=== PATIENT | male | born 1940 | race Caucasian/White ===

== ENCOUNTER 2020-05-26 14:59 | Inpatient (IN) | payer MEDICARE ==
[~2020-05-26] VITALS: Ht 177.8 cm; Wt 84.0 kg
[2020-05-26 16:51] VITALS: BP 148/85
[2020-05-26] MEDS ORDERED: METHYL SALICYLATE/MENTHOL TOPICAL OINTMENT 57GM TUBE. TP PRN (17:30)
[2020-05-26] MEDS ORDERED: ACETAMINOPHEN 325 MG TABLET PO PRN (17:30)
[2020-05-26] MEDS ORDERED: MAG HYDROX/AL HYDROX/SIMETH 30 ML ORAL.SUSP PO PRN (17:30)
[2020-05-26] MEDS ORDERED: MAGNESIUM HYDROXIDE 2,400 MG/30 ML ORAL.SUSP. PO PRN (17:30)
[2020-05-26] MEDS ORDERED: ACET500T68 PO (17:43)
[2020-05-26] MEDS ORDERED: MEMA10TA PO (17:43)
[2020-05-26] MEDS ORDERED: ASPI-630 PO (17:43)
[2020-05-26] MEDS ORDERED: CALC200T3 PO (17:43)
[2020-05-26] MEDS ORDERED: BISA5TAB4 PO (17:43)
[2020-05-26] MEDS ORDERED: tiZANidine 4 MG TABLET. PO PRN (17:45)
[2020-05-26] MEDS ORDERED: LORA-254 PO (17:57)
[2020-05-26] MEDS ORDERED: SERT50TA PO (17:57)
[2020-05-26] MEDS ORDERED: TIZA4TAB2 PO (17:57)
[2020-05-26] MEDS ORDERED: QUET50TA PO (17:57)
[2020-05-26] MEDS ORDERED: ATOR40TA59 PO (17:57)
[2020-05-26] MEDS ORDERED: QUET25TA PO (17:57)
[2020-05-26] MEDS ORDERED: QUET100T4 PO (17:57)
[2020-05-26] MEDS ORDERED: BISACODYL TAB 5 MG TABLET.DR. PO PRN (18:15)
[2020-05-26] MEDS ORDERED: ACETAMINOPHEN 500 MG TABLET PO PRN (18:15)
[2020-05-26 18:58] LABS: BASO % 1 % (0-3); EOS # 0.4 x10^3/uL (0.0-0.7); EOS % 6 % (0-3); HEMATOCRIT 42.8 % (39.0-53.0); HEMOGLOBIN 13.8 g/dL (13.0-17.5); LYMPH # 2.6 x10^3/uL (1.0-4.8); LYMPH % 39 % (24-48); MEAN CORPUSCULAR HEMOGLOBIN 30 pg (25-35); MEAN CORPUSCULAR HGB CONC 32 g/dL (31-37); MEAN CORPUSCULAR VOLUME 94 fL (79-100); MONO # 0.5 x10^3/uL (0.0-1.1); MONO % 8 % (0-9); NEUT % 46 % (31-73); PLATELET COUNT 197 x10^3/uL (140-400); RED BLOOD COUNT 4.57 x10^6/uL (4.30-5.70); RED CELL DISTRIBUTION WIDTH 13.6 % (11.5-14.5); WHITE BLOOD COUNT 6.6 x10^3/uL (4.0-11.0)
[2020-05-26 19:09] LABS: ALBUMIN 3.4 g/dL (3.4-5.0); ALBUMIN/GLOBULIN RATIO 0.9 (1.0-1.7); CALCIUM 8.8 mg/dL (8.5-10.1); CREATININE 1.6 mg/dL (0.7-1.3); GFR 41.9; MAGNESIUM 2.2 mg/dL (1.8-2.4); POTASSIUM 5.2 mmol/L (3.5-5.1); TOTAL BILIRUBIN 0.2 mg/dL (0.2-1.0); TOTAL PROTEIN 7.2 g/dL (6.4-8.2)
[2020-05-26] MEDS: ATORVASTATIN CALCIUM 20 MG TABLET PO SCH (20:00)
[2020-05-26] MEDS: CALCIUM CARBONATE 500 MG TAB.CHEW PO SCH (20:00)
[2020-05-26] MEDS: LORazepam 1 MG TABLET PO SCH (20:00)
[2020-05-26] MEDS: MEMANTINE 10 MG TABLET. PO SCH (20:00)
[2020-05-26] MEDS: QUEtiapine 100 MG TABLET. PO SCH (20:00)
[2020-05-26] MEDS ORDERED: QUEtiapine 25 MG TABLET. PO SCH (21:00)
[2020-05-26] MEDS ORDERED: QUEtiapine 50 MG TABLET. PO SCH (21:00)
[2020-05-26] MEDS: traZODone 100 MG TABLET. PO PRN ×2 (21:27→23:48)
[2020-05-26 22:17] LABS: BILIRUBIN,URINE NEG (NEG); CLARITY,URINE CLEAR; COLOR,URINE YELLOW; GLUCOSE,URINE NEG (NEG); UROBILINOGEN,URINE 0.2 mg/dL (0.2 mg/dL)
[2020-05-26 22:18] LABS: BACTERIA,URINE 0 /HPF (0-FEW); NITRITE,URINE NEG (NEG); RBC,URINE 0 /HPF (0-2); WBC,URINE 0 /HPF (0-4)
[2020-05-27 06:15] VITALS: BP 154/78
[2020-05-27] MEDS: QUEtiapine 25 MG TABLET. PO SCH ×2 (07:35→14:00)
[2020-05-27] MEDS: ASPIRIN CHEWABLE 81 MG TABLET. PO SCH (07:35)
[2020-05-27] MEDS: CALCIUM CARBONATE 500 MG TAB.CHEW PO SCH ×2 (07:35→19:20)
[2020-05-27] MEDS: SERTRALINE 50 MG TABLET. PO SCH (07:35)
[2020-05-27] MEDS: MEMANTINE 10 MG TABLET. PO SCH ×2 (07:36→19:20)
[2020-05-27] MEDS: QUEtiapine 50 MG TABLET. PO SCH ×2 (07:36→14:00)
[2020-05-27 07:38] LABS: THYROID STIM HORMONE (TSH) 1.078 uIU/mL (0.358-3.740)
[2020-05-27] MEDS ORDERED: HALOPERIDOL LACT 5 MG/ML VIAL. ONE (09:20)
[2020-05-27] MEDS ORDERED: HALOPERIDOL LACT 5 MG/ML VIAL. IM ONE (09:30)
[2020-05-27] MEDS ORDERED: HALOPERIDOL LACT 5 MG/ML VIAL. IM PRN (13:00)
--- NOTE | 2020-05-27 13:26 | HP ---
ADMIT DATE: HISTORY OF PRESENT ILLNESS: The patient is a 80-year-old male patient, a resident at [facility] in [place], who was admitted to [address] [place] [address] to be screened for COVID-19 infection. He apparently had worsening agitation, wandering, grabbed peers arms on 2 separate occasions, ing, impulsive, has severe insomnia and some physical aggression. An attempt to treat him with increase in his Seroquel and Ambien for insomnia and a sitter at bedtime to decrease wandering without much improvement and therefore once his coronavirus by PCR is negative, he would be admitted to [facility] for inpatient psychiatric stabilization. The patient is extremely aggressive, combative, impulsive, and does not really give any useful information. PAST MEDICAL HISTORY: Significant for dementia with behavioral disorder, paroxysmal atrial fibrillation, hyperlipidemia, Barrera's esophagus, hiatal hernia, adenomatous colon polyps, history of melanoma, history of squamous cell carcinoma of the skin, stage 3 chronic kidney disease, depression, history of herpes simplex virus type 2 and sleep disorder. PAST SURGICAL HISTORY: Significant for cholecystectomy, skin cancer excision. FAMILY HISTORY: Both parents are because of lung cancer. SOCIAL HISTORY: He does not smoke. He drinks 1-2 drinks of alcohol per day. Previously independent living resident. 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 ALLERGIES: He has no known drug allergies. MEDICATIONS: He is currently on following medications: He is on tizanidine 4 mg every 8 hours as needed, atorvastatin calcium 40 mg at bedtime, aspirin 81 mg once a day, Tylenol 500 mg every 6 hours, sertraline 50 mg, he takes 100 mg daily, quetiapine fumarate 25 mg twice a day, quetiapine fumarate 100 mg at bedtime, quetiapine fumarate 50 mg twice a day, lorazepam 2 mg at bedtime, Namenda 10 mg twice a day, calcium carbonate 500 mg twice a day, bisacodyl 5 mg tablet p.r.n. daily. REVIEW OF SYSTEMS: Unobtainable. PHYSICAL EXAMINATION: GENERAL: On examining him, he looked well and was clearly in no apparent respiratory distress. No pallor, jaundice, cyanosis or thyromegaly. No jugular venous distention. No lower limb edema. VITAL SIGNS: His heart rate was 60, blood pressure was 148/85, temperature was 97.5, respiratory rate was 14 and oxygen saturation was 94%. HEAD, EYES, EARS, NOSE AND THROAT: Showed normocephalic, atraumatic. NECK: Supple. HEART: Normal first and second heart sounds. No gallop, rub or murmur. CHEST: Clear to auscultation. No crepitation or rhonchi. ABDOMEN: Distended, soft, nontender. NEUROLOGIC: He is sleepy, but arousable. He is very agitated, restless and combative and aggressive; however, all his cranial nerves intact. EXTREMITIES: He moves extremities without difficulty. He is apparently incontinent of urine. Unfortunately, he does not allow the nursing staff to clean him. He continues to wander around. Has been very aggressive towards nursing staff and hit some of them. He refused to allow the health physics technician to do admission EKG and grabbed her hand. He was so agitated and aggressive when being redirected, required one-on-one sitter. LABORATORY DATA: Showed a white cell count of 6600, hemoglobin 13.8, hematocrit 42, MCV 94, platelet count of 197,000. Serum sodium was 137, potassium 5.2, chloride 106, bicarbonate 24, anion gap of 7, BUN 35, creatinine 1.6, estimated GFR was 42 mL per minute. His glucose was 92, calcium was 8.8, magnesium 2.2. Serum iron 96, TIBC was 309, iron saturation was 31. Total bilirubin, AST, ALT, alkaline phosphatase were normal. Total protein 7.2, albumin was 3.4. His serum triglycerides 294 and total cholesterol 191, LDL cholesterol 89. VLDL was 58 and HDL was 44, ratio was 4. TSH was 1.078. His prothrombin time is 1.16 mg. Urinalysis showed the urine was essentially unremarkable. IMPRESSION: In summary, this is a 80-year-old male patient, who was a resident at [facility], who was admitted to [address] [place] [address] to be screened for coronavirus and once it was confirmed that it is negative, he will be transferred to [facility] for inpatient psychiatric stabilization as the patient was admitted with increased worsening behavior, markedly agitated, wandering, grabbed at peers arms on 2 separate occasions , impulsive, has severe insomnia, all this in a background of dementia. Medically, the patient has multiple medical problems including paroxysmal atrial fibrillation that seems to be rate controlled; hyperlipidemia, for which he is on atorvastatin; he is also known to have Barrera's esophagus as well as hiatal hernia; has stage 3 chronic kidney disease, depression, and sleep disorder, has adenomatous colon polyps, history of melanoma, and history of squamous cell carcinoma of the skin that were resected. PLAN: To continue with all his current medication. We added Haldol 5 mg intramuscular every 4 hours as needed. Once his coronavirus PCR becomes available and is negative, he will be transferred to senior behavioral unit. GIULIA LIMON MD DR: CHIOMA/jun JOB#: [id number] / [id number]
--- NOTE | 2020-05-27 14:35 | PN ---
DATE: 05/27/2020 SUBJECTIVE: The patient is resting flat, sleeping comfortably in bed, in no apparent distress. The patient has been extremely aggressive. He hit all the nurses today and Dr. Muñoz was consulted and he ordered Haldol 5 mg intramuscular to calm him down. PHYSICAL EXAMINATION: GENERAL: When I saw him this afternoon, he was resting flat, sleeping comfortably, in no apparent distress. There is no pallor, jaundice, cyanosis or thyromegaly. No jugular venous distention. No limb edema. VITAL SIGNS: Her heart rate was 59, blood pressure was 154/78, temperature was 97.7, respiratory rate was 16, and oxygen saturation was 93%. HEAD, EYES, EARS, NOSE AND THROAT: Normocephalic, atraumatic. NECK: Supple. HEART: Showed normal first and second heart sounds. No gallop, rub or murmur. CHEST: Clear to auscultation. No crepitation or rhonchi. ABDOMEN: Distended, soft, nontender. NEUROLOGIC: He is demented, but without any obvious lateralizing sign. The patient is able to ambulate without assistance or assistive devices. He is incontinent of urine. Unfortunately, he is very aggressive and does not allow his nursing to clean him. LABORATORY DATA: Stable. ASSESSMENT: So all in all, from medical point of view, the patient is medically stable. His blood pressure is slightly borderline elevated. His heart rate is well controlled, in fact he is not on any rate controlling medications: He is not on any anticoagulation. He has chronic kidney disease with a creatinine of 1.6, BUN of 35, and slightly elevated potassium at 5.2. PLAN: My plan is to continue with all his medication. I did order Haldol every 6 hours as needed, given how aggressive he is and how impulsive and directable. Once we have the COVID-19 test available and negative, he will be transferred up to [facility]. GIULIA LIMON MD DR: CHIOMA/jun JOB#: [id number] / [id number]
[2020-05-27 17:45] VITALS: BP 149/106
[2020-05-27] MEDS: traZODone 100 MG TABLET. PO PRN (19:20)
[2020-05-27] MEDS: ATORVASTATIN CALCIUM 20 MG TABLET PO SCH (19:20)
[2020-05-27] MEDS: QUEtiapine 100 MG TABLET. PO SCH (19:20)
[2020-05-27] MEDS: LORazepam 1 MG TABLET PO SCH (19:20)
--- NOTE | 2020-05-27 21:51 | PDOC ---
Exam Note: Danielito Note: This is a late entry for 05/26/2020. Please also refer to the separate dictated note~for this date of service dictated separately. Discussed the patient with Nursing staff reviewed the chart.~Reviewed interim history and current functioning. Reviewed vital signs,~Labs/ Radiology~and current medications noted below. Continue current treatment with the changes noted in the dictated addendum note Assessment: Vital Signs/I&O: Vital Signs Date Time Temp Pulse Resp B/P (MAP) Pulse Ox O2 Delivery O2 Flow Rate FiO2 05/27/20 17:45 98.1 59 18 149/106 (120) 93 Room Air I & O 05/26/20 05/26/20 05/27/20 15:00 23:00 07:00 Intake Total 0 ml 200 ml Output Total 200 ml Balance 0 ml 0 ml Current Medications: Meds: Current Medications Medications (Trade) Dose Ordered Sig/Abdifatah Route PRN Reason Start Time Stop Time Status Last Admin Dose Admin Acetaminophen (Tylenol) 650 mg PRN Q6HRS PRN PO MILD PAIN / TEMP > 100.3'F 05/26/20 17:30 05/26/20 18:13 DC Multi-Ingredient Ointment (Analgesic Ethel) 1 wendy PRN QID PRN TP MUSCLE PAIN 05/26/20 17:30 Al Hydroxide/Mg Hydroxide (Mylanta Plus Xs) 15 ml PRN AFTMEALHC PRN PO DYSPEPSIA 05/26/20 17:30 Magnesium Hydroxide (Milk Of Magnesia) 2,400 mg PRN QHS PRN PO CONSTIPATION 05/26/20 17:30 Calcium Carbonate/ Glycine (Tums) 500 mg BID PO 05/26/20 21:00 05/27/20 19:20 Lorazepam (Ativan) 2 mg QHS PO 05/26/20 21:00 05/27/20 19:20 Memantine (Namenda) 10 mg BID PO 05/26/20 21:00 05/27/20 19:20 Quetiapine Fumarate (SEROquel) 50 mg BID PO 05/26/20 21:00 05/26/20 19:43 DC Quetiapine Fumarate (SEROquel) 100 mg QHS PO 05/26/20 21:00 05/27/20 19:20 Sertraline HCl (Zoloft) 100 mg DAILY PO 05/27/20 09:00 05/27/20 07:35 Tizanidine HCl (Zanaflex) 4 mg PRN Q8HRS PRN PO MUSCLE SPASMS 05/26/20 17:45 Atorvastatin Calcium (Lipitor) 40 mg QHS PO 05/26/20 21:00 05/27/20 19:20 Acetaminophen (Tylenol) 500 mg PRN Q6HRS PRN PO pain or fever 05/26/20 18:15 Aspirin (Aspirin Chewable) 81 mg DAILY PO 05/27/20 09:00 05/27/20 07:35 Bisacodyl (Dulcolax Tab) 5 mg PRN DAILY PRN PO CONSTIPATION 05/26/20 18:15 Quetiapine Fumarate (SEROquel) 25 mg BID PO 05/26/20 21:00 05/26/20 19:43 DC Quetiapine Fumarate (SEROquel) 50 mg BID92 PO 05/27/20 09:00 05/27/20 07:36 Quetiapine Fumarate (SEROquel) 25 mg BID92 PO 05/27/20 09:00 05/27/20 07:35 Trazodone HCl (Desyrel) 100 mg PRN QHS PRN PO INSOMNIA, MAY REPEAT X1 05/26/20 21:15 05/27/20 19:20 Olanzapine (ZyPREXA ZYDIS) 2.5 mg PRN Q2HRS PRN PO PSYCHOSIS 05/26/20 21:15 05/27/20 07:36 Haloperidol Lactate (Haldol) 5 mg STK-MED ONCE .ROUTE 05/27/20 09:20 05/27/20 09:20 DC Haloperidol Lactate (Haldol) 5 mg 1X ONCE IM 05/27/20 09:30 05/27/20 09:31 DC 05/27/20 09:28 Lorazepam (Ativan Inj) 2 mg STK-MED ONCE .ROUTE 05/27/20 09:20 05/27/20 09:20 DC Lorazepam (Ativan Inj) 1 mg 1X ONCE IM 05/27/20 09:30 05/27/20 09:31 DC 05/27/20 09:28 Haloperidol Lactate (Haldol) 5 mg PRN Q6HRS PRN IM AGITATION 05/27/20 13:00 05/27/20 16:08 Current Medications Medications (Trade) Dose Ordered Sig/Abdifatah Route PRN Reason Start Time Stop Time Status Last Admin Dose Admin Sertraline HCl (Zoloft) 100 mg DAILY PO 05/27/20 09:00 05/27/20 07:35 Aspirin (Aspirin Chewable) 81 mg DAILY PO 05/27/20 09:00 05/27/20 07:35 Quetiapine Fumarate (SEROquel) 50 mg BID92 PO 05/27/20 09:00 05/27/20 07:36 Quetiapine Fumarate (SEROquel) 25 mg BID92 PO 05/27/20 09:00 05/27/20 07:35 Haloperidol Lactate (Haldol) 5 mg 1X ONCE IM 05/27/20 09:30 05/27/20 09:31 DC 05/27/20 09:28 Lorazepam (Ativan Inj) 1 mg 1X ONCE IM 05/27/20 09:30 05/27/20 09:31 DC 05/27/20 09:28 Haloperidol Lactate (Haldol) 5 mg PRN Q6HRS PRN IM AGITATION 05/27/20 13:00 05/27/20 16:08 I have reviewed the current psychotropics carefully including drug interactions. Risk benefit ratio favors no change other than as noted in my dictated progress note. Diagnosis: Problems: (1) Major neurocognitive disorder, due to vascular disease, with behavioral disturbance, mild (2) Dementia in Alzheimer's disease with delusions (3) Dementia in Alzheimer's disease with depression (4) Dementia of the Alzheimer's type with early onset with behavioral disturbance (5) Dementia, vascular, with delusions (6) Dementia, vascular, with depression (7) Anxiety disorder, unspecified NORMA AYALA MD May 27, 2020 21:51
--- NOTE | 2020-05-27 21:51 | PDOC ---
Exam Note: Danielito Note: This note is a late entry for 05/26/2020 covers elements not covered in my initial note. Subjective: The patient was reviewed on consult as he was admitted to [facility] Medical[facility] floor for a repeat COVID-19 screen before coming to the [facility]. He was referred to the [facility] from [facility] on account of worsening anxiety, agitation, psychotic symptoms within the context of his major neurocognitive disorder Alzheimer, vascular with delusion, depression, behavioral disturbance. Since being admitted on the unit per Snehal SWENSON, the patient has been extremely restless, anxious, agitated, trying to elope. He remains confused, psychotic, paranoid, distractive with ongoing mood lability. No suicidal or homicidal ideation. Review of Systems: No CV, , pulmonary, eye, ENT system symptoms on review. Impression: Major neurocognitive disorder, Alzheimer vascular with delusion, depression, behavioral disturbance. Rest unchanged from previous records. Plan: We will start Zyprexa 2.5 mg q.2h. p.r.n. psychosis and agitation, max 20 mg in 24 hours, trazodone 100 mg h.s. p.r.n. insomnia, may repeat x1. We may consider adding Remeron for insomnia. We will continue rest of the psychotropics. Assessment: Vital Signs/I&O: Vital Signs Date Time Temp Pulse Resp B/P (MAP) Pulse Ox O2 Delivery O2 Flow Rate FiO2 05/27/20 17:45 98.1 59 18 149/106 (120) 93 Room Air I & O 05/26/20 05/26/20 05/27/20 15:00 23:00 07:00 Intake Total 0 ml 200 ml Output Total 200 ml Balance 0 ml 0 ml Current Medications: Meds: Current Medications Medications (Trade) Dose Ordered Sig/Abdifatah Route PRN Reason Start Time Stop Time Status Last Admin Dose Admin Acetaminophen (Tylenol) 650 mg PRN Q6HRS PRN PO MILD PAIN / TEMP > 100.3'F 05/26/20 17:30 05/26/20 18:13 DC Multi-Ingredient Ointment (Analgesic Mobile) 1 wendy PRN QID PRN TP MUSCLE PAIN 05/26/20 17:30 Al Hydroxide/Mg Hydroxide (Mylanta Plus Xs) 15 ml PRN AFTMEALHC PRN PO DYSPEPSIA 05/26/20 17:30 Magnesium Hydroxide (Milk Of Magnesia) 2,400 mg PRN QHS PRN PO CONSTIPATION 05/26/20 17:30 Calcium Carbonate/ Glycine (Tums) 500 mg BID PO 05/26/20 21:00 05/27/20 19:20 Lorazepam (Ativan) 2 mg QHS PO 05/26/20 21:00 05/27/20 19:20 Memantine (Namenda) 10 mg BID PO 05/26/20 21:00 05/27/20 19:20 Quetiapine Fumarate (SEROquel) 50 mg BID PO 05/26/20 21:00 05/26/20 19:43 DC Quetiapine Fumarate (SEROquel) 100 mg QHS PO 05/26/20 21:00 05/27/20 19:20 Sertraline HCl (Zoloft) 100 mg DAILY PO 05/27/20 09:00 05/27/20 07:35 Tizanidine HCl (Zanaflex) 4 mg PRN Q8HRS PRN PO MUSCLE SPASMS 05/26/20 17:45 Atorvastatin Calcium (Lipitor) 40 mg QHS PO 05/26/20 21:00 05/27/20 19:20 Acetaminophen (Tylenol) 500 mg PRN Q6HRS PRN PO pain or fever 05/26/20 18:15 Aspirin (Aspirin Chewable) 81 mg DAILY PO 05/27/20 09:00 05/27/20 07:35 Bisacodyl (Dulcolax Tab) 5 mg PRN DAILY PRN PO CONSTIPATION 05/26/20 18:15 Quetiapine Fumarate (SEROquel) 25 mg BID PO 05/26/20 21:00 05/26/20 19:43 DC Quetiapine Fumarate (SEROquel) 50 mg BID92 PO 05/27/20 09:00 05/27/20 07:36 Quetiapine Fumarate (SEROquel) 25 mg BID92 PO 05/27/20 09:00 05/27/20 07:35 Trazodone HCl (Desyrel) 100 mg PRN QHS PRN PO INSOMNIA, MAY REPEAT X1 05/26/20 21:15 05/27/20 19:20 Olanzapine (ZyPREXA ZYDIS) 2.5 mg PRN Q2HRS PRN PO PSYCHOSIS 05/26/20 21:15 05/27/20 07:36 Haloperidol Lactate (Haldol) 5 mg STK-MED ONCE .ROUTE 05/27/20 09:20 05/27/20 09:20 DC Haloperidol Lactate (Haldol) 5 mg 1X ONCE IM 05/27/20 09:30 05/27/20 09:31 DC 05/27/20 09:28 Lorazepam (Ativan Inj) 2 mg STK-MED ONCE .ROUTE 05/27/20 09:20 05/27/20 09:20 DC Lorazepam (Ativan Inj) 1 mg 1X ONCE IM 05/27/20 09:30 05/27/20 09:31 DC 05/27/20 09:28 Haloperidol Lactate (Haldol) 5 mg PRN Q6HRS PRN IM AGITATION 05/27/20 13:00 05/27/20 16:08 Current Medications Medications (Trade) Dose Ordered Sig/Abdifatah Route PRN Reason Start Time Stop Time Status Last Admin Dose Admin Sertraline HCl (Zoloft) 100 mg DAILY PO 05/27/20 09:00 05/27/20 07:35 Aspirin (Aspirin Chewable) 81 mg DAILY PO 05/27/20 09:00 05/27/20 07:35 Quetiapine Fumarate (SEROquel) 50 mg BID92 PO 05/27/20 09:00 05/27/20 07:36 Quetiapine Fumarate (SEROquel) 25 mg BID92 PO 05/27/20 09:00 05/27/20 07:35 Haloperidol Lactate (Haldol) 5 mg 1X ONCE IM 05/27/20 09:30 05/27/20 09:31 DC 05/27/20 09:28 Lorazepam (Ativan Inj) 1 mg 1X ONCE IM 05/27/20 09:30 05/27/20 09:31 DC 05/27/20 09:28 Haloperidol Lactate (Haldol) 5 mg PRN Q6HRS PRN IM AGITATION 05/27/20 13:00 05/27/20 16:08 I have reviewed the current psychotropics carefully including drug interactions. Risk benefit ratio favors no change other than as noted in my dictated progress note. Diagnosis: Problems: (1) Anxiety disorder, unspecified (2) Dementia, vascular, with depression (3) Dementia, vascular, with delusions (4) Dementia in Alzheimer's disease with depression (5) Dementia in Alzheimer's disease with delusions (6) Dementia of the Alzheimer's type with early onset with behavioral disturbance (7) Major neurocognitive disorder, due to vascular disease, with behavioral disturbance, mild NORMA AYALA MD May 27, 2020 21:51
--- NOTE | 2020-05-27 21:57 | PDOC ---
Exam Note: Danielito Note: Please also refer to the separate dictated note~for this date of service dictated separately. Discussed the patient with Nursing staff reviewed the chart.~Reviewed interim history and current functioning. Reviewed vital signs,~Labs/ Radiology~and current medications noted below. Continue current treatment with the changes noted in the dictated addendum note Assessment: Vital Signs/I&O: Vital Signs Date Time Temp Pulse Resp B/P (MAP) Pulse Ox O2 Delivery O2 Flow Rate FiO2 05/27/20 17:45 98.1 59 18 149/106 (120) 93 Room Air I & O 05/26/20 05/26/20 05/27/20 15:00 23:00 07:00 Intake Total 0 ml 200 ml Output Total 200 ml Balance 0 ml 0 ml Current Medications: Meds: Current Medications Medications (Trade) Dose Ordered Sig/Abdifatah Route PRN Reason Start Time Stop Time Status Last Admin Dose Admin Acetaminophen (Tylenol) 650 mg PRN Q6HRS PRN PO MILD PAIN / TEMP > 100.3'F 05/26/20 17:30 05/26/20 18:13 DC Multi-Ingredient Ointment (Analgesic Pinon) 1 wendy PRN QID PRN TP MUSCLE PAIN 05/26/20 17:30 Al Hydroxide/Mg Hydroxide (Mylanta Plus Xs) 15 ml PRN AFTMEALHC PRN PO DYSPEPSIA 05/26/20 17:30 Magnesium Hydroxide (Milk Of Magnesia) 2,400 mg PRN QHS PRN PO CONSTIPATION 05/26/20 17:30 Calcium Carbonate/ Glycine (Tums) 500 mg BID PO 05/26/20 21:00 05/27/20 19:20 Lorazepam (Ativan) 2 mg QHS PO 05/26/20 21:00 05/27/20 19:20 Memantine (Namenda) 10 mg BID PO 05/26/20 21:00 05/27/20 19:20 Quetiapine Fumarate (SEROquel) 50 mg BID PO 05/26/20 21:00 05/26/20 19:43 DC Quetiapine Fumarate (SEROquel) 100 mg QHS PO 05/26/20 21:00 05/27/20 19:20 Sertraline HCl (Zoloft) 100 mg DAILY PO 05/27/20 09:00 05/27/20 07:35 Tizanidine HCl (Zanaflex) 4 mg PRN Q8HRS PRN PO MUSCLE SPASMS 05/26/20 17:45 Atorvastatin Calcium (Lipitor) 40 mg QHS PO 05/26/20 21:00 05/27/20 19:20 Acetaminophen (Tylenol) 500 mg PRN Q6HRS PRN PO pain or fever 05/26/20 18:15 Aspirin (Aspirin Chewable) 81 mg DAILY PO 05/27/20 09:00 05/27/20 07:35 Bisacodyl (Dulcolax Tab) 5 mg PRN DAILY PRN PO CONSTIPATION 05/26/20 18:15 Quetiapine Fumarate (SEROquel) 25 mg BID PO 05/26/20 21:00 05/26/20 19:43 DC Quetiapine Fumarate (SEROquel) 50 mg BID92 PO 05/27/20 09:00 05/27/20 07:36 Quetiapine Fumarate (SEROquel) 25 mg BID92 PO 05/27/20 09:00 05/27/20 07:35 Trazodone HCl (Desyrel) 100 mg PRN QHS PRN PO INSOMNIA, MAY REPEAT X1 05/26/20 21:15 05/27/20 19:20 Olanzapine (ZyPREXA ZYDIS) 2.5 mg PRN Q2HRS PRN PO PSYCHOSIS 05/26/20 21:15 05/27/20 07:36 Haloperidol Lactate (Haldol) 5 mg STK-MED ONCE .ROUTE 05/27/20 09:20 05/27/20 09:20 DC Haloperidol Lactate (Haldol) 5 mg 1X ONCE IM 05/27/20 09:30 05/27/20 09:31 DC 05/27/20 09:28 Lorazepam (Ativan Inj) 2 mg STK-MED ONCE .ROUTE 05/27/20 09:20 05/27/20 09:20 DC Lorazepam (Ativan Inj) 1 mg 1X ONCE IM 05/27/20 09:30 05/27/20 09:31 DC 05/27/20 09:28 Haloperidol Lactate (Haldol) 5 mg PRN Q6HRS PRN IM AGITATION 05/27/20 13:00 05/27/20 16:08 Current Medications Medications (Trade) Dose Ordered Sig/Abdifatah Route PRN Reason Start Time Stop Time Status Last Admin Dose Admin Sertraline HCl (Zoloft) 100 mg DAILY PO 05/27/20 09:00 05/27/20 07:35 Aspirin (Aspirin Chewable) 81 mg DAILY PO 05/27/20 09:00 05/27/20 07:35 Quetiapine Fumarate (SEROquel) 50 mg BID92 PO 05/27/20 09:00 05/27/20 07:36 Quetiapine Fumarate (SEROquel) 25 mg BID92 PO 05/27/20 09:00 05/27/20 07:35 Haloperidol Lactate (Haldol) 5 mg 1X ONCE IM 05/27/20 09:30 05/27/20 09:31 DC 05/27/20 09:28 Lorazepam (Ativan Inj) 1 mg 1X ONCE IM 05/27/20 09:30 05/27/20 09:31 DC 05/27/20 09:28 Haloperidol Lactate (Haldol) 5 mg PRN Q6HRS PRN IM AGITATION 05/27/20 13:00 05/27/20 16:08 I have reviewed the current psychotropics carefully including drug interactions. Risk benefit ratio favors no change other than as noted in my dictated progress note. Diagnosis: Problems: (1) Anxiety disorder, unspecified (2) Dementia, vascular, with depression (3) Dementia, vascular, with delusions (4) Dementia in Alzheimer's disease with depression (5) Dementia in Alzheimer's disease with delusions (6) Dementia of the Alzheimer's type with early onset with behavioral disturbance (7) Major neurocognitive disorder, due to vascular disease, with behavioral disturbance, mild NORMA AYALA MD May 27, 2020 21:57
[2020-05-27 23:00] VITALS: BP 141/82
[2020-05-28 02:03] LABS: THYROXINE 3.8 ug/dL (4.5-12.0)
[2020-05-28 04:02] LABS: HEMOGLOBIN A1C 5.4 % (4.8-5.6)
[2020-05-28 05:30] VITALS: BP 114/72
[2020-05-28] MEDS: ASPIRIN CHEWABLE 81 MG TABLET. PO SCH (08:26)
[2020-05-28] MEDS: SERTRALINE 50 MG TABLET. PO SCH (08:26)
[2020-05-28] MEDS: CALCIUM CARBONATE 500 MG TAB.CHEW PO SCH (08:27)
[2020-05-28] MEDS: MEMANTINE 10 MG TABLET. PO SCH (08:27)
[2020-05-28] MEDS: QUEtiapine 25 MG TABLET. PO SCH (08:27)
[2020-05-28] MEDS: QUEtiapine 50 MG TABLET. PO SCH (08:27)
--- NOTE | 2020-05-28 08:31 | PDOC ---
Exam Note: Danielito Note: This note is a late entry for 05/27/2020 covers elements not covered in my initial note. Subjective: The patient was discussed with nursing staff. Reviewed the chart. He has been extremely agitated, confused, aggressive, disruptive, threatening, calling to the nursing staff. He slept poorly last night even after we used the additional psychotropics after I was called by the nursing staff late last evening. He remains confused. Review of Systems: Per nursing report, no CV, , pulmonary, eye system symptoms on review. Mental Status Exam: Assessed via description from nursing staff. He remains oriented to himself. Insight and judgment, recent and remote memory, attention and concentration, fund of knowledge is poor consistent with his diagnosis. Impression: Major neurocognitive disorder, Alzheimer vascular with delusion, depression, behavioral disturbance. Plan: The patient has been non-compliant with his medications, responding poorly to interventions and we will give one time dosage of Haldol 5 mg, Ativan 1 mg. Increase the Zyprexa p.r.n. Make further adjustments as clinically indicated. In the interim continue rest of the psychotropics. Assessment: Vital Signs/I&O: Vital Signs Date Time Temp Pulse Resp B/P (MAP) Pulse Ox O2 Delivery O2 Flow Rate FiO2 05/28/20 08:08 Room Air 05/28/20 05:30 98.6 71 18 114/72 (86) 98 I & O 05/27/20 05/27/20 05/28/20 15:00 23:00 07:00 Intake Total 240 ml 100 ml 0 ml Output Total 2275 ml 300 ml Balance 240 ml -2175 ml -300 ml Current Medications: Meds: Current Medications Medications (Trade) Dose Ordered Sig/Abdifatah Route PRN Reason Start Time Stop Time Status Last Admin Dose Admin Sertraline HCl (Zoloft) 100 mg DAILY PO 05/27/20 09:00 05/28/20 08:26 Aspirin (Aspirin Chewable) 81 mg DAILY PO 05/27/20 09:00 05/28/20 08:26 Quetiapine Fumarate (SEROquel) 50 mg BID92 PO 05/27/20 09:00 05/28/20 08:27 Quetiapine Fumarate (SEROquel) 25 mg BID92 PO 05/27/20 09:00 05/28/20 08:27 Haloperidol Lactate (Haldol) 5 mg 1X ONCE IM 05/27/20 09:30 05/27/20 09:31 DC 05/27/20 09:28 Lorazepam (Ativan Inj) 1 mg 1X ONCE IM 05/27/20 09:30 05/27/20 09:31 DC 05/27/20 09:28 Haloperidol Lactate (Haldol) 5 mg PRN Q6HRS PRN IM AGITATION 05/27/20 13:00 05/27/20 16:08 I have reviewed the current psychotropics carefully including drug interactions. Risk benefit ratio favors no change other than as noted in my dictated progress note. Diagnosis: Problems: (1) Anxiety disorder, unspecified (2) Dementia, vascular, with depression (3) Dementia, vascular, with delusions (4) Dementia in Alzheimer's disease with depression (5) Dementia in Alzheimer's disease with delusions (6) Dementia of the Alzheimer's type with early onset with behavioral d isturbance (7) Major neurocognitive disorder, due to vascular disease, with behavioral disturbance, mild NORMA AYALA MD May 28, 2020 08:31
[2020-05-28] MEDS ORDERED: TRAZ-125 PO (12:26)
[2020-05-28] MEDS ORDERED: METH28OI2 TP (12:26)
[2020-05-28] MEDS ORDERED: MAG-115 PO (12:26)
[2020-05-28] MEDS ORDERED: OLAN5TAB99 PO (12:26)
[2020-05-28] MEDS ORDERED: MAGN24003 PO (12:26)
--- NOTE | 2020-05-28 14:31 | DS ---
DATE OF DISCHARGE: 05/28/2020 HOSPITAL COURSE: The patient is a 80-year-old male patient, a resident at [facility] in [place], was admitted to [address] [place] [address] to be screened for COVID-19 infection. Actually, his coronavirus by PCR was negative, undetectable, and therefore, the patient was transferred to [facility] where he was admitted on account of worsening agitation, wandering, grabbed peers arm on 2 separate occasions, , impulsive, has severe insomnia and some physical aggression and an attempt to treat him as an outpatient by increasing his Seroquel and Ambien for insomnia and a sitter at bedtime to decrease wandering without much improvement and therefore, he was transferred to [facility] for inpatient psychiatric stabilization. PHYSICAL EXAMINATION: GENERAL: When I saw him today, he looked well and was clearly in no apparent respiratory distress. There was no pallor, jaundice or cyanosis. No lymphadenopathy, no thyromegaly. No jugular venous distension. No limb edema. VITAL SIGNS: His heart rate was 71, blood pressure was 114/72, temperature was 98.6, respiratory rate was 18 and oxygen saturation was 98%. HEAD, EYES, EARS, NOSE AND THROAT: Showed normocephalic, atraumatic. NECK: Supple. HEART: Showed normal first and second heart sounds. No gallop, rub or murmur. CHEST: Clear to auscultation. No crepitation or rhonchi. ABDOMEN: Distended, soft, nontender. NEUROLOGIC: He is demented, but without any obvious lateralizing sign. LABORATORY DATA: Showed his hemoglobin A1c was 5.4%. His serum iron, TIBC and iron saturation are all normal. His vitamin B12 was 326 pg/mL, which is well within normal range; however, his 25-hydroxy vitamin D was 22.9, which is low. His TSH was normal at 1.078, however, his total T4 and total T3 are both low. DISCHARGE MEDICATIONS: The patient was discharged to [facility] to continue on: Tylenol 500 mg every 6 hours, aspirin 81 mg once a day, bisacodyl 5 mg once a day, calcium carbonate or Tums 500 mg twice a day, lorazepam 2 mg at bedtime, Namenda 10 mg twice a day, quetiapine fumarate 100 mg at bedtime, sertraline 100 mg once a day, tizanidine 4 mg every 8 hours as needed, atorvastatin calcium 40 mg daily, quetiapine fumarate 75 mg twice a day. FINAL DISCHARGE DIAGNOSES: 1. Dementia with behavioral disorders. 2. Paroxysmal atrial fibrillation. 3. Hyperlipidemia. 4. Barrera's esophagus. 5. Hiatal hernia. 6. Adenomatous colon polyps. 7. Chronic kidney disease. 8. Sleep disorder. GIULIA LIMON MD DR: CHIOMA/jun JOB#: [id number] / [id number]
== END 2020-05-28 10:35 | DRG 641 ==
LOC: 1 SOUTH 16:48
PROVIDERS: ADMIT Internal Medicine; ATTEND Internal Medicine
DX: E87.5 Hyperkalemia (principal); F01.51 Vascular dementia, unspecified severity, with behavioral disturbance; F02.81 Dementia in other diseases classified elsewhere, unspecified severity, with behavioral disturbance; G30.9 Alzheimer's disease, unspecified; D12.6 Benign neoplasm of colon, unspecified; E78.5 Hyperlipidemia, unspecified; F32.9 Major depressive disorder, single episode, unspecified; F41.9 Anxiety disorder, unspecified; G47.00 Insomnia, unspecified; I48.0 Paroxysmal atrial fibrillation; K44.9 Diaphragmatic hernia without obstruction or gangrene; K22.70 Barrett's esophagus without dysplasia; N18.30 Chronic kidney disease, stage 3 unspecified; Z20.822 Contact with and (suspected) exposure to COVID-19; Z80.1 Family history of malignant neoplasm of trachea, bronchus and lung; Z85.820 Personal history of malignant melanoma of skin; Z86.010 Personal history of colon polyps
CPT/HCPCS: 36415; 80053; 80061; 81001; 82306; 82607; 83036; 83540; 83550; 83735; 84436; 84443; 84480; 85025; 85379; 86592; J1630; J2060; U0003

== ENCOUNTER 2020-05-28 10:40 | Inpatient (IN) | payer MEDICARE ==
[~2020-05-28] VITALS: Ht 177.8 cm; Wt 84.1 kg
--- NOTE | 2020-05-28 10:30 | NUR ---
Admission Note with Justification for Admission to [facility] Patient admitted to [facility] for protective oversight for emergency stabilization of acute psychiatric crisis. Pt admitted from: 1 [facility] Mode of arrival: WC Accompanied By: 1 [facility] Staff Precipitating behaviors that initiated intake and admission:increased behaviors, agitatied, wandering gabbed peers arm on 2 separate occasions, sundowning, impulsive, insomnia, some physical aggression. Description of failure of out patient attempts at stabilization in previous setting list behavior and medication trials: increased seroquel, attempted ambien for insomnia, sitter @ HS to decrease wandering. Behaviors and assessment findings upon admission: pt is sleepy but arousable. He is resistive to cares. Plan: Admit for protective oversight for adjustment and stabilization of medications, behaviors and mood. Intense treatment regimen including groups, medication adjustments, therapy, consistent regimen for ADL's, self care, and sleep hygiene. Daily monitoring by Inpatient staff, Psychiatry, and Medical Physician.
[~2020-05-28 10:40] MED LIST: ACET500T68 PO; ASPI-630 PO; ATOR40TA59 PO; BISA5TAB4 PO; CALC200T3 PO; LORA-254 PO; MEMA10TA PO; QUET100T4 PO; QUET25TA PO; QUET50TA PO; SERT50TA PO; TIZA4TAB2 PO
[2020-05-28 11:26] VITALS: BP 115/74
[2020-05-28] MEDS ORDERED: MAG HYDROX/AL HYDROX/SIMETH 30 ML ORAL.SUSP PO PRN ×2 (12:00→12:30)
[2020-05-28] MEDS ORDERED: BISACODYL TAB 5 MG TABLET.DR. PO PRN (12:00)
[2020-05-28] MEDS ORDERED: MAGN24003 PO (12:26)
[2020-05-28] MEDS ORDERED: MAG-115 PO (12:26)
[2020-05-28] MEDS ORDERED: METH28OI2 TP (12:26)
[2020-05-28] MEDS ORDERED: TRAZ-125 PO (12:26)
[2020-05-28] MEDS ORDERED: OLAN5TAB99 PO (12:26)
[2020-05-28] MEDS ORDERED: METHYL SALICYLATE/MENTHOL TOPICAL OINTMENT 57GM TUBE. TP PRN (12:45)
[2020-05-28] MEDS ORDERED: MAGNESIUM HYDROXIDE 2,400 MG/30 ML ORAL.SUSP. PO PRN (12:45)
[2020-05-28] MEDS: QUEtiapine 25 MG TABLET. PO SCH (14:00)
[2020-05-28] MEDS: QUEtiapine 50 MG TABLET. PO SCH (14:00)
[2020-05-28 16:26] VITALS: BP 121/79
[2020-05-28] MEDS: traZODone 100 MG TABLET. PO PRN (20:37)
[2020-05-28] MEDS: QUEtiapine 100 MG TABLET. PO SCH (20:37)
[2020-05-28] MEDS: ATORVASTATIN CALCIUM 20 MG TABLET PO SCH (20:51)
[2020-05-28] MEDS: CALCIUM CARBONATE 500 MG TAB.CHEW PO SCH (20:52)
[2020-05-28] MEDS ORDERED: MEMANTINE 10 MG TABLET. PO SCH (21:00)
[2020-05-28] MEDS ORDERED: LORazepam 1 MG TABLET PO SCH (21:00)
--- NOTE | 2020-05-28 21:05 | PDOC ---
Exam Note: Danielito Note: Please also refer to the separate dictated note~for this date of service dictated separately.~Patient seen individually. Discussed the patient with Nursing staff reviewed the chart.~Reviewed interim history and current functioning. Reviewed vital signs,~Labs/ Radiology~and current medications noted below. Continue current treatment with the changes noted in the dictated addendum note Assessment: Vital Signs/I&O: Vital Signs Date Time Temp Pulse Resp B/P (MAP) Pulse Ox O2 Delivery O2 Flow Rate FiO2 05/28/20 16:26 98.8 62 20 121/79 (93) 99 Current Medications: Meds: Current Medications Medications (Trade) Dose Ordered Sig/Abdifatah Route PRN Reason Start Time Stop Time Status Last Admin Dose Admin Acetaminophen (Tylenol) 500 mg PRN Q6HRS PRN PO pain or fever 05/28/20 12:00 Aspirin (Aspirin Chewable) 81 mg DAILY PO 05/29/20 09:00 Bisacodyl (Dulcolax Tab) 5 mg PRN DAILY PRN PO CONSTIPATION 05/28/20 12:00 Calcium Carbonate/ Glycine (Tums) 500 mg BID PO 05/28/20 21:00 Lorazepam (Ativan) 2 mg QHS PO 05/28/20 21:00 05/28/20 20:37 Al Hydroxide/Mg Hydroxide (Mylanta Plus Xs) 15 ml PRN AFTMEALHC PRN PO DYSPEPSIA 05/28/20 12:00 UNV Memantine (Namenda) 10 mg BID PO 05/28/20 21:00 Olanzapine (ZyPREXA ZYDIS) 2.5 mg PRN Q2HRS PRN PO PSYCHOSIS 05/28/20 12:00 Quetiapine Fumarate (SEROquel) 25 mg BID92 PO 05/28/20 14:00 Quetiapine Fumarate (SEROquel) 50 mg BID92 PO 05/28/20 14:00 Quetiapine Fumarate (SEROquel) 100 mg QHS PO 05/28/20 21:00 05/28/20 20:37 Sertraline HCl (Zoloft) 100 mg DAILY PO 05/29/20 09:00 Tizanidine HCl (Zanaflex) 4 mg PRN Q8HRS PRN PO MUSCLE SPASMS 05/28/20 12:00 Trazodone HCl (Desyrel) 100 mg PRN QHS PRN PO INSOMNIA, MAY REPEAT X1 05/28/20 12:00 05/28/20 20:37 Atorvastatin Calcium (Lipitor) 40 mg QHS PO 05/28/20 21:00 Magnesium Hydroxide (Milk Of Magnesia) 2,400 mg PRN QHS PRN PO CONSTIPATION 05/28/20 12:45 Multi-Ingredient Ointment (Analgesic Woden) 1 wendy PRN QID PRN TP MUSCLE PAIN 05/28/20 12:45 Al Hydroxide/Mg Hydroxide (Mylanta Plus Xs) 15 ml PRN AFTMEALHC PRN PO DYSPEPSIA 05/28/20 12:30 Current Medications Medications (Trade) Dose Ordered Sig/Abdifatah Route PRN Reason Start Time Stop Time Status Last Admin Dose Admin Lorazepam (Ativan) 2 mg QHS PO 05/28/20 21:00 05/28/20 20:37 Quetiapine Fumarate (SEROquel) 100 mg QHS PO 05/28/20 21:00 05/28/20 20:37 Trazodone HCl (Desyrel) 100 mg PRN QHS PRN PO INSOMNIA, MAY REPEAT X1 05/28/20 12:00 05/28/20 20:37 I have reviewed the current psychotropics carefully including drug interactions. Risk benefit ratio favors no change other than as noted in my dictated progress note. Diagnosis: Problems: (1) Anxiety disorder, unspecified (2) Dementia, vascular, with depression (3) Dementia, vascular, with delusions (4) Dementia in Alzheimer's disease with depression (5) Dementia in Alzheimer's disease with delusions (6) Dementia of the Alzheimer's type with early onset with behavioral distu rbance (7) Major neurocognitive disorder, due to vascular disease, with behavioral disturbance, mild NORMA AYALA MD May 28, 2020 21:05
--- NOTE | 2020-05-28 23:13 | NUR ---
Pt sleeping soundly, but arouseable tonight. Later in the evening, pt woke up and was restless repeatedly attempting to get out of bed. Pt extremely unsteady on his feet and has a carrillo catheter. Pt agitated with redirection, balling up his fists. Psychiatric medications crushed and placed in one bite of pudding. Pt compliant with medications. Pt taken to [facility] and placed in a broda chair with chair alarm. Pt continuously hallucinated, moving his hands in a repetitive motion as if he was knitting. Pt unable to answer assessment questions. Pt later taken back to bed where he is currently sleeping.
[2020-05-29 06:42] VITALS: BP 108/63
--- NOTE | 2020-05-29 09:37 | HP ---
ADMIT DATE: 05/28/2020 PSYCHIATRIC ADMISSION HISTORY/EVALUATION This is a late entry date of service 05/28/2020 covers the elements not covered in my initial note 05/28/2020. SUBJECTIVE: I met with the patient [id number] evening of 05/28/2020 for this evaluation, previously discussed with nursing staff on several occasions and with Rosie Diop, primary care coordinator and reviewed current and past records. IDENTIFYING DATA: The patient is a 80-year-old male referred to us from [facility] by his primary care physician/psychiatrist with a diagnosis of major neurocognitive disorder, Alzheimer, vascular with delusion, depression, behavioral disturbance. The patient had increased agitation at the retirement with significant behavior problems. He was wandering. He grabbed a peer on the arm on 2 separate occasions. Confusion, agitation, delusions, aggression seemed to worsen with sundowning. He was impulsive. He is having marked insomnia. Adjustments had been made in his psychotropics including an increase in Seroquel and Ambien was tried for insomnia and he had a sitter in place at night to improve wandering. All of this had failed. Behaviors were deemed dangerous, unmanageable at the facility resulting in this referral. He was initially admitted to [address] [place] [address] until we got a negative COVID-19 screen and then he has been transferred to the [facility] for further psychiatric treatment. He is quite sedated at the time of my evaluation, having received PRNs on [address] [place] [address] Medical/Surgical floor. CHIEF COMPLAINT: "No." HISTORY OF PRESENT ILLNESS: The patient has a history of major neurocognitive disorder, Alzheimer, vascular with delusion, depression, behavioral disturbance. He has been increasingly agitated as noted above, aggressive, disruptive with marked insomnia, dangerous, unmanageable behaviors. No clear history of bipolar disorder, suicidal or homicidal ideation. He has been physically aggressive as well. PAST PSYCHIATRIC HISTORY: As above. MEDICAL HISTORY: Positive for stage 3, renal insufficiency, atrial fibrillation, hypotension, Barrera's esophagus, hyperlipidemia, chronic pain. DRUG ALLERGIES: Negative. CODE STATUS: DNR. DIET: Regular, thin liquids. Takes meds crushed. Ambulates 2% assist in Broda chair. CURRENT PSYCHOTROPICS: Depakote Sprinkles 125 mg 3 times a day, Seroquel 75 mg 9 a.m., 2:00 p.m. 100 mg at bedtime, Zoloft 100 mg a day, trazodone 100 mg at bedtime p.r.n., may repeat x1, Ativan 2 mg at bedtime, which we will go ahead and start tapering since it seems to be causing paradoxical disinhibition. He is also on Zyprexa p.r.n., which was [facility] on [facility] after the nursing staff had called me several times due to his unmanageable behaviors. FAMILY HISTORY: Noncontributory. SOCIAL HISTORY: No history of alcohol, drug abuse, physical, sexual or elder abuse. He is not known to be a perpetrator. REACTION TO HOSPITALIZATION: The patient oblivious of where he is. ASSETS: Supportive living at the above facility, supportive family. MENTAL STATUS EXAMINATION: The patient was seen individually evening of 05/28/2020. He is oriented to himself, somewhat sedated. Not very verbally interactive. Insight, judgment, recent and remote memory, attention, concentration, fund of knowledge poor, consistent with his diagnosis. After I evaluated the patient around 7:30 p.m., I was then called around 10:00 p.m. and informed that the patient had woken up increasingly agitated, very confused, psychotic. IMPRESSION: Major neurocognitive disorder, Alzheimer, vascular with delusion, depression, behavioral disturbance; anxiety disorder, unspecified; impulse control disorder, unspecified. Rest unchanged as above. PLAN: Admit to Geropsychiatry Unit at [facility]. I will see the patient daily individually from a psychiatric standpoint. Medical followup with Dr. Salcedo/Dr. Knight. Continue the patient on his current psychotropics. Check a valproic acid level. Adjust Depakote to reach therapeutic level. We will go ahead and gradually taper the Ativan by 0.5 mg reduction every 3 days until it is discontinued. May need to increase Seroquel. We will consider other options as clinically indicated. ESTIMATED LENGTH OF STAY: 10-12 days. DISPOSITION: Plans back to retirement when stable. MAN Kadie AYALA MD DR: BRAVO/jun JOB#: [id number] / [id number]
[2020-05-29 10:13] LABS: ALBUMIN 3.2 g/dL (3.4-5.0); ALBUMIN/GLOBULIN RATIO 0.8 (1.0-1.7); CALCIUM 8.5 mg/dL (8.5-10.1); CREATININE 1.7 mg/dL (0.7-1.3); GFR 39.1; POTASSIUM 3.7 mmol/L (3.5-5.1); TOTAL BILIRUBIN 0.6 mg/dL (0.2-1.0); TOTAL PROTEIN 7.1 g/dL (6.4-8.2)
[2020-05-29 10:23] LABS: BASO % 0 % (0-3); EOS % 0 % (0-3); HEMATOCRIT 45.4 % (39.0-53.0); HEMOGLOBIN 14.8 g/dL (13.0-17.5); LYMPH # 1.4 x10^3/uL (1.0-4.8); LYMPH % 16 % (24-48); MEAN CORPUSCULAR HEMOGLOBIN 30 pg (25-35); MEAN CORPUSCULAR HGB CONC 33 g/dL (31-37); MEAN CORPUSCULAR VOLUME 92 fL (79-100); MONO # 0.7 x10^3/uL (0.0-1.1); MONO % 8 % (0-9); NEUT # 6.6 x10^3uL (1.8-7.7); NEUT % 76 % (31-73); PLATELET COUNT 208 x10^3/uL (140-400); RED BLOOD COUNT 4.91 x10^6/uL (4.30-5.70); RED CELL DISTRIBUTION WIDTH 13.5 % (11.5-14.5); WHITE BLOOD COUNT 8.7 x10^3/uL (4.0-11.0)
[2020-05-29] MEDS: DIVALPROEX 125 MG CAP.SPRINK PO SCH ×4 (10:43→17:00)
[2020-05-29] MEDS: QUEtiapine 50 MG TABLET. PO SCH ×3 (10:44→13:26)
[2020-05-29] MEDS: QUEtiapine 25 MG TABLET. PO SCH ×3 (10:44→13:26)
[2020-05-29] MEDS: CALCIUM CARBONATE 500 MG TAB.CHEW PO SCH ×3 (10:44→21:00)
[2020-05-29] MEDS: SERTRALINE 100 MG TABLET. PO SCH ×2 (10:44→10:45)
[2020-05-29] MEDS: ASPIRIN CHEWABLE 81 MG TABLET. PO SCH (10:45)
--- NOTE | 2020-05-29 10:45 | NUR ---
Patient has been drowsy in Broda this morning. Attempted to provide morning medications per eMAR, patient too drowsy to accept. Patient transferred to his bed with two person assist. Will hold morning meds and report to MD during rounds.
--- NOTE | 2020-05-29 12:36 | NUR ---
PSYCHOSOCIAL ASSESSMENT ADMISSION DATE: 05/28/20 CONTACT INFORMATION: DPOA/Guardian Contact Name: Janee Rodarte Contact Address: [place], [place] Contact Phone #: [phone] ETHNIC ORIGIN: REASONS FOR ADMISSION: Aggressive Agitated Angry Combative Confusion/Disoriented Sig. Change Sleep ADDITIONAL ADMISSION COMMENTS: Per intake record, pt has increased behaviors of agitation, wandering, grabbed a peers arm on two separate occasions, sundowning, impulsive, insomnia, some physical aggression. REASON FOR ADMISSION IN PATIENT/FAMILY'S OWN WORDS: Pt has had to have a 1:1 for lack of sleep. He is active at night and doesn't sleep. The most sleep recently that he has gotten has been about four hours. Ambien has been tried and maybe some Lorazepam. He, also, has been getting into other patient rooms. Finally, he has been agitated. PATIENT/FAMILY EXPECTATIONS FOR ADMISSION: Decrease agitation/aggression Medication management Help patient to get some sleep. LIVING SITUATION: Patient lives with: Memory Care Other living arrangements: [facility] Living Contact Name: Ro Contact Address: [address] [place] [address] Contact Phone #: [phone] Contact Fax #: [phone] FAMILY RELATIONS: Marital Status: # of Marriages: 1 # of Children: 1 [facility] Family Support: Concerned Cooperative Involved in [place] Planning Additional Comments r/t Family: Pt and ex- have one daughter who is Janee Rodarte/GONSALO. Ex- has no involvement. There are no grandchildren. Pt has no living siblings. SIGNIFICANT PSYCHIATRIC/MEDICAL HISTORY: Psychiatric/Treatment History: None Pertinent Family History: Mother had Alzheimer's. Brother from lung cancer. HISTORICAL DATA: Childhood Environment: [place] Nurturing Stressful Supportive Childhood Environment Additional Comments: Pt grew up in [place], [place] and was raised by a single mother. Father had abandoned him and his mother when pt was 3 y.o. For pt's mother to be able to work and support family, pt would have to be left a an orphanage at times. 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 service: N Scientology background: [place] Sexual orientation: Heterosexual Educational Level: Medical School Past/Present Interests/Hobbies: Playing golf, watching golf on television, watching sports on television, would love to watch the [place] bowl, plays various card games such as Bridge and Gin Rummy. Financial support/resources: Chcf/Pension Monthly income: Unknown/Adequate Person handling finances: Dtr/GONSALO, Janee Rodarte Do you have a history of legal problems: N Cultural considerations: None SOCIAL RELATIONSHIPS-CURRENT/PAST: Psychiatrist: None PCP: Dr. 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 Hallucination/Delus Medication Stabilization Monitor Med Effects Control abnormal behavior Prevent Deterioration Dec. Outbursts Dec. Aggression Other preliminary treatment comments: While at [facility], pt will be encouraged to attend SW and recreational therapy groups. He will report problems with sleep as well as be monitored by staff for sleep. Pt will, also, be monitored for medication effects. DISCHARGE PLANNING: Discharge planning/disposition: Memory Care Additional discharge needs identified: Pt will return to [facility] once stable. ADDITIONAL INFORMATION: Other Pertinent Data: Pt derekr/GONSALO would like to be involved in treatment team meetings.
--- NOTE | 2020-05-29 13:23 | NUR ---
Patient continues to sleep and be very lethargic, will hold all medications at this time.
[2020-05-29 15:27] VITALS: BP 164/85
[2020-05-29] MEDS ORDERED: CHOLECALCIFEROL (VITAMIN D3) 50,000 UNIT CAPSULE PO SCH (16:00)
--- NOTE | 2020-05-29 18:32 | CONS ---
DATE OF CONSULTATION: 05/29/2020 REASON FOR CONSULTATION: Medical management. HISTORY OF PRESENT ILLNESS: The patient is a 80-year-old male patient who was referred from [facility] by his primary care physician and psychiatrist with diagnosis of major neurocognitive disorder, Alzheimer, vascular with delusion and depression. He had increased agitation at the custodial with significant behavioral problems. He was admitted to [address] [place] [address] and was screened for COVID-19 that turned out to be negative and therefore he was transferred to [facility] for inpatient psychiatric stabilization. He apparently had increased agitation at the custodial with significant behavioral problems. He was wandering, grabbed a peer on the arm on 2 separate occasions, confusion, agitation, delusion, increasing aggression seem to worsen with owning, very impulsive, has marked insomnia and despite adjustment that has been made to his psychotropic medication including increasing Seroquel and Ambien without much improvement. PAST MEDICAL HISTORY: Medically, the patient is known that he has chronic stage 3 kidney disease, atrial fibrillation, hypertension, Barrera's esophagus, hyperlipidemia and chronic pain syndrome. PAST SURGICAL HISTORY: Significant for cholecystectomy and skin cancer excision. FAMILY HISTORY: Both parents are because of lung cancer. SOCIAL HISTORY: He does not smoke. Drinks 1-2 drinks of alcohol per day. Previously independent living resident. 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 ALLERGIES: He has no known drug allergies. MEDICATIONS: He is currently on tizanidine 4 mg every 8 hours as needed, atorvastatin calcium 40 mg at bedtime, aspirin 81 mg once a day, Tylenol 500 mg every 6 hours, sertraline 50 mg, he takes 100 mg daily, quetiapine fumarate 25 mg twice a day, quetiapine fumarate 100 mg at bedtime, quetiapine fumarate 50 mg twice a day, lorazepam 2 mg at bedtime, Namenda 10 mg twice a day, calcium carbonate 500 mg twice a day, bisacodyl 5 mg tablet p.o. daily p.r.n. for constipation. REVIEW OF SYSTEMS: Unobtainable. PHYSICAL EXAMINATION: GENERAL: On examining him, the patient looked well and was clearly in no apparent respiratory distress. No pallor, jaundice, cyanosis or thyromegaly. No jugular venous distention or limb edema. VITAL SIGNS: Her heart rate was 68, blood pressure 115/74, temperature 97.8, respiratory rate was 20, and oxygen saturation was 99%. HEAD, EYES, EARS, NOSE AND THROAT: Normocephalic, atraumatic. NECK: Supple. HEART: Showed normal first and second heart sounds. No gallop or murmur. CHEST: Clear to auscultation. No crepitation or rhonchi. ABDOMEN: Distended, soft, nontender. No guarding or rigidity. No organomegaly. All hernial orifice intact. Bowel sounds normal. NEUROLOGIC: He was demented, but without any obvious lateralizing sign. LABORATORY DATA: Showed a white cell count of 8700, hemoglobin 14.8, hematocrit 45, MCV 92, and platelet count 208,000 with normal manual differential. His chemistry showed a serum sodium 140, potassium 3.7, chloride 104, bicarbonate 24, anion gap of 12, BUN 31, creatinine 1.7, estimated GFR was 39 mL per minute. His glucose 150, calcium was 8.5. Total bilirubin, AST, ALT, alkaline phosphatase were normal. Total protein is 7.1, albumin 3.2. His TSH was 1.78, but total T4 and total T3 were low. His 25-hydroxyvitamin D was low at 22.9; however, his vitamin B12 was normal. His hemoglobin A1c was 5.4%. His serum iron, TIBC and iron saturation are all normal. Serum triglycerides slightly elevated to 194, however, total cholesterol was 191, LDL cholesterol was 89, VLDL was 58, HDL was 44 and ratio was 40. His coronavirus PCR was undetectable and his treponema pallidum antibodies unreactive. IMPRESSION: In summary, this is a 80-year-old male patient who was admitted with increased agitation at the custodial with significant behavioral problems. He was wandering, grabbed a peer on the arm on 2 separate occasions. He is confused, agitated, delusional, aggressive, all the symptoms worsen with sundowning. He was impulsive and has marked insomnia and despite adjustment of his psychotropic medication, he continued to be very agitated and therefore, he was admitted to [facility] for inpatient psychiatric stabilization. Medically, the patient seems has obviously multiple medical problems including chronic renal insufficiency, atrial fibrillation, seems to be rate controlled, hypertension, Barrera's esophagus, and hyperlipidemia. His lab work which showed he has vitamin D deficiency. His total T4 and total T3 were low. PLAN: My plan is to start him on cholecalciferol 50,000 International unit once a week and also start him on a small dose of Synthroid 25 mcg. Thank you, Dr. Muñoz for allowing me to participate in the care of this patient. GIULIA LIMON MD DR: CHIOMA/jun JOB#: [id number] / [id number]
[2020-05-29] MEDS: QUEtiapine 100 MG TABLET. PO SCH (21:00)
[2020-05-29] MEDS: ATORVASTATIN CALCIUM 20 MG TABLET PO SCH (21:00)
[2020-05-29] MEDS: LORazepam 1 MG TABLET PO SCH (21:00)
--- NOTE | 2020-05-29 21:01 | PDOC ---
Exam Note: Danielito Note: Please also refer to the separate dictated note~for this date of service dictated separately.~Patient seen individually. Discussed the patient with Nursing staff reviewed the chart.~Reviewed interim history and current functioning. Reviewed vital signs,~Labs/ Radiology~and current medications noted below. Continue current treatment with the changes noted in the dictated addendum note Assessment: Vital Signs/I&O: Vital Signs Date Time Temp Pulse Resp B/P (MAP) Pulse Ox O2 Delivery O2 Flow Rate FiO2 05/29/20 15:27 98.9 82 16 164/85 (111) 92 05/29/20 06:42 Room Air I & O 05/28/20 05/28/20 05/29/20 15:00 23:00 07:00 Intake Total 0 ml Output Total 850 ml Balance 0 ml -850 ml Labs: Laboratory Tests Test 05/29/20 09:38 White Blood Count 8.7 x10^3/uL (4.0-11.0) Red Blood Count 4.91 x10^6/uL (4.30-5.70) Hemoglobin 14.8 g/dL (13.0-17.5) Hematocrit 45.4 % (39.0-53.0) Mean Corpuscular Volume 92 fL (79-100) Mean Corpuscular Hemoglobin 30 pg (25-35) Mean Corpuscular Hemoglobin Concent 33 g/dL (31-37) Red Cell Distribution Width 13.5 % (11.5-14.5) Platelet Count 208 x10^3/uL (140-400) Neutrophils (%) (Auto) 76 % (31-73) H Lymphocytes (%) (Auto) 16 % (24-48) L Monocytes (%) (Auto) 8 % (0-9) Eosinophils (%) (Auto) 0 % (0-3) Basophils (%) (Auto) 0 % (0-3) Neutrophils # (Auto) 6.6 x10^3uL (1.8-7.7) Lymphocytes # (Auto) 1.4 x10^3/uL (1.0-4.8) Monocytes # (Auto) 0.7 x10^3/uL (0.0-1.1) Eosinophils # (Auto) 0.0 x10^3/uL (0.0-0.7) Basophils # (Auto) 0.0 x10^3/uL (0.0-0.2) Sodium Level 140 mmol/L (136-145) Potassium Level 3.7 mmol/L (3.5-5.1) Chloride Level 104 mmol/L (98-107) Carbon Dioxide Level 24 mmol/L (21-32) Anion Gap 12 (6-14) Blood Urea Nitrogen 31 mg/dL (8-26) H Creatinine 1.7 mg/dL (0.7-1.3) H Estimated GFR (Cockcroft-Gault) 39.1 BUN/Creatinine Ratio 18 (6-20) Glucose Level 150 mg/dL (70-99) H Calcium Level 8.5 mg/dL (8.5-10.1) Total Bilirubin 0.6 mg/dL (0.2-1.0) Aspartate Amino Transferase (AST) 27 U/L (15-37) Alanine Aminotransferase (ALT) 23 U/L (16-63) Alkaline Phosphatase 83 U/L (46-116) Total Protein 7.1 g/dL (6.4-8.2) Albumin 3.2 g/dL (3.4-5.0) L Albumin/Globulin Ratio 0.8 (1.0-1.7) L Current Medications: Meds: Laboratory Tests Test 05/29/20 09:38 White Blood Count 8.7 x10^3/uL Red Blood Count 4.91 x10^6/uL Hemoglobin 14.8 g/dL Hematocrit 45.4 % Mean Corpuscular Volume 92 fL Mean Corpuscular Hemoglobin 30 pg Mean Corpuscular Hemoglobin Concent 33 g/dL Red Cell Distribution Width 13.5 % Platelet Count 208 x10^3/uL Neutrophils (%) (Auto) 76 % Lymphocytes (%) (Auto) 16 % Monocytes (%) (Auto) 8 % Eosinophils (%) (Auto) 0 % Basophils (%) (Auto) 0 % Neutrophils # (Auto) 6.6 x10^3uL Lymphocytes # (Auto) 1.4 x10^3/uL Monocytes # (Auto) 0.7 x10^3/uL Eosinophils # (Auto) 0.0 x10^3/uL Basophils # (Auto) 0.0 x10^3/uL Sodium Level 140 mmol/L Potassium Level 3.7 mmol/L Chloride Level 104 mmol/L Carbon Dioxide Level 24 mmol/L Anion Gap 12 Blood Urea Nitrogen 31 mg/dL Creatinine 1.7 mg/dL Estimated GFR (Cockcroft-Gault) 39.1 BUN/Creatinine Ratio 18 Glucose Level 150 mg/dL Calcium Level 8.5 mg/dL Total Bilirubin 0.6 mg/dL Aspartate Amino Transf (AST/SGOT) 27 U/L Alanine Aminotransferase (ALT/SGPT) 23 U/L Alkaline Phosphatase 83 U/L Total Protein 7.1 g/dL Albumin 3.2 g/dL Albumin/Globulin Ratio 0.8 Current Medications Medications (Trade) Dose Ordered Sig/Abdifatah Route PRN Reason Start Time Stop Time Status Last Admin Dose Admin Acetaminophen (Tylenol) 500 mg PRN Q6HRS PRN PO pain or fever 05/28/20 12:00 Aspirin (Aspirin Chewable) 81 mg DAILY PO 05/29/20 09:00 Bisacodyl (Dulcolax Tab) 5 mg PRN DAILY PRN PO CONSTIPATION 05/28/20 12:00 Calcium Carbonate/ Glycine (Tums) 500 mg BID PO 05/28/20 21:00 Lorazepam (Ativan) 2 mg QHS PO 05/28/20 21:00 05/28/20 22:01 DC 05/28/20 20:37 Al Hydroxide/Mg Hydroxide (Mylanta Plus Xs) 15 ml PRN AFTMEALHC PRN PO DYSPEPSIA 05/28/20 12:00 UNV Memantine (Namenda) 10 mg BID PO 05/28/20 21:00 05/28/20 21:57 DC Olanzapine (ZyPREXA ZYDIS) 2.5 mg PRN Q2HRS PRN PO PSYCHOSIS 05/28/20 12:00 05/28/20 21:57 DC Quetiapine Fumarate (SEROquel) 25 mg BID92 PO 05/28/20 14:00 Quetiapine Fumarate (SEROquel) 50 mg BID92 PO 05/28/20 14:00 Quetiapine Fumarate (SEROquel) 100 mg QHS PO 05/28/20 21:00 05/28/20 20:37 Sertraline HCl (Zoloft) 100 mg DAILY PO 05/29/20 09:00 Tizanidine HCl (Zanaflex) 4 mg PRN Q8HRS PRN PO MUSCLE SPASMS 05/28/20 12:00 Trazodone HCl (Desyrel) 100 mg PRN QHS PRN PO INSOMNIA, MAY REPEAT X1 05/28/20 12:00 05/28/20 20:37 Atorvastatin Calcium (Lipitor) 40 mg QHS PO 05/28/20 21:00 Magnesium Hydroxide (Milk Of Magnesia) 2,400 mg PRN QHS PRN PO CONSTIPATION 05/28/20 12:45 Multi-Ingredient Ointment (Analgesic [place]) 1 wendy PRN QID PRN TP MUSCLE PAIN 05/28/20 12:45 Al Hydroxide/Mg Hydroxide (Mylanta Plus Xs) 15 ml PRN AFTMEALHC PRN PO DYSPEPSIA 05/28/20 12:30 Olanzapine (ZyPREXA ZYDIS) 5 mg PRN Q2HRS PRN PO PSYCHOSIS 05/28/20 22:00 Divalproex Sodium (Depakote Sprinkles) 125 mg TID@0900,1300,1700 PO 05/29/20 09:00 05/29/20 18:06 DC Lorazepam (Ativan) 1.5 mg QHS PO 05/29/20 21:00 05/31/20 21:01 Lorazepam (Ativan) 1 mg QHS PO 06/01/20 21:00 06/03/20 21:01 Lorazepam (Ativan) 0.5 mg QHS PO 06/04/20 21:00 06/06/20 21:01 Vitamin D (Vitamin D3) 50,000 unit WEEKLY PO 05/29/20 16:00 05/29/20 17:50 DC Levothyroxine Sodium (Synthroid) 25 mcg DAILY06 PO 05/30/20 06:00 Vitamin D (Vitamin D3) 50,000 unit WEEKLY PO 05/30/20 09:00 I have reviewed the current psychotropics carefully including drug interactions. Risk benefit ratio favors no change other than as noted in my dictated progress note. Diagnosis: Problems: (1) Anxiety disorder, unspecified (2) Dementia, vascular, with depression (3) Dementia, vascular, with delusions (4) Dementia in Alzheimer's disease with depression (5) Dementia in Alzheimer's disease with delusions (6) Dementia of the Alzheimer's type with early onset with behavioral disturbance (7) Major neurocognitive disorder, due to vascular disease, with behavioral disturbance, NORMA Kwon MD May 29, 2020 21:01
--- NOTE | 2020-05-29 23:53 | NUR ---
Pt continues to be very sleepy tonight. He responds to name then falls back to sleep. HS meds held tonight.
[2020-05-30] MEDS: LEVOTHYROXINE 25 MCG TABLET. PO SCH (05:44)
[2020-05-30 06:25] VITALS: BP 130/85
[2020-05-30] MEDS: ASPIRIN CHEWABLE 81 MG TABLET. PO SCH (08:10)
[2020-05-30] MEDS: QUEtiapine 50 MG TABLET. PO SCH ×2 (08:11→14:00)
[2020-05-30] MEDS: QUEtiapine 25 MG TABLET. PO SCH ×2 (08:11→14:00)
[2020-05-30] MEDS: CHOLECALCIFEROL (VITAMIN D3) 50,000 UNIT CAPSULE PO SCH (08:11)
[2020-05-30] MEDS: SERTRALINE 100 MG TABLET. PO SCH (08:11)
[2020-05-30] MEDS: CALCIUM CARBONATE 500 MG TAB.CHEW PO SCH ×2 (08:12→21:50)
--- NOTE | 2020-05-30 09:17 | PDOC ---
Exam Note: Danielito Note: This note is a late entry for 05/29/2020 covers elements not covered in my initial note. Subjective: The patient was seen face to face in the evening of 05/29/2020 with Freddie SWENSON. Discussed with nursing staff, reviewed the chart. The patient slept 6-1/2 hours previous night. He has been sleeping off and on during the day. He was quite restless previous night. He slept in, in the morning. Review of Systems: Ambulation impaired in Broda chair. No CV, , pulmonary, eye, ENT system symptoms on review. Mental Status Exam: The patient is oriented to himself. Insight and judgment, recent and remote memory, attention and concentration, fund of knowledge is poor consistent with his diagnosis. Laboratory Data: Reviewed. Impression: Bipolar 1 disorder mixed with psychotic features. OCD. Anxiety disorder unspecified. Impulse control disorder unspecified. Plan: Continue current psychotropics. We will hold the Seroquel if he is se dated. Stop the Depakote given his level of sedation. Continue rest psychotropics unchanged. Assessment: Vital Signs/I&O: Vital Signs Date Time Temp Pulse Resp B/P (MAP) Pulse Ox O2 Delivery O2 Flow Rate FiO2 05/30/20 06:25 97.2 88 20 130/85 (100) 94 Room Air I & O 05/29/20 05/29/20 05/30/20 15:00 23:00 07:00 Intake Total 580 ml 360 ml 240 ml Output Total 700 ml Balance 580 ml 360 ml -460 ml Labs: Laboratory Tests Test 05/29/20 09:38 White Blood Count 8.7 x10^3/uL (4.0-11.0) Red Blood Count 4.91 x10^6/uL (4.30-5.70) Hemoglobin 14.8 g/dL (13.0-17.5) Hematocrit 45.4 % (39.0-53.0) Mean Corpuscular Volume 92 fL (79-100) Mean Corpuscular Hemoglobin 30 pg (25-35) Mean Corpuscular Hemoglobin Concent 33 g/dL (31-37) Red Cell Distribution Width 13.5 % (11.5-14.5) Platelet Count 208 x10^3/uL (140-400) Neutrophils (%) (Auto) 76 % (31-73) H Lymphocytes (%) (Auto) 16 % (24-48) L Monocytes (%) (Auto) 8 % (0-9) Eosinophils (%) (Auto) 0 % (0-3) Basophils (%) (Auto) 0 % (0-3) Neutrophils # (Auto) 6.6 x10^3uL (1.8-7.7) Lymphocytes # (Auto) 1.4 x10^3/uL (1.0-4.8) Monocytes # (Auto) 0.7 x10^3/uL (0.0-1.1) Eosinophils # (Auto) 0.0 x10^3/uL (0.0-0.7) Basophils # (Auto) 0.0 x10^3/uL (0.0-0.2) Sodium Level 140 mmol/L (136-145) Potassium Level 3.7 mmol/L (3.5-5.1) Chloride Level 104 mmol/L (98-107) Carbon Dioxide Level 24 mmol/L (21-32) Anion Gap 12 (6-14) Blood Urea Nitrogen 31 mg/dL (8-26) H Creatinine 1.7 mg/dL (0.7-1.3) H Estimated GFR (Cockcroft-Gault) 39.1 BUN/Creatinine Ratio 18 (6-20) Glucose Level 150 mg/dL (70-99) H Calcium Level 8.5 mg/dL (8.5-10.1) Total Bilirubin 0.6 mg/dL (0.2-1.0) Aspartate Amino Transferase (AST) 27 U/L (15-37) Alanine Aminotransferase (ALT) 23 U/L (16-63) Alkaline Phosphatase 83 U/L (46-116) Total Protein 7.1 g/dL (6.4-8.2) Albumin 3.2 g/dL (3.4-5.0) L Albumin/Globulin Ratio 0.8 (1.0-1.7) L Current Medications: Meds: Laboratory Tests Test 05/29/20 09:38 White Blood Count 8.7 x10^3/uL Red Blood Count 4.91 x10^6/uL Hemoglobin 14.8 g/dL Hematocrit 45.4 % Mean Corpuscular Volume 92 fL Mean Corpuscular Hemoglobin 30 pg Mean Corpuscular Hemoglobin Concent 33 g/dL Red Cell Distribution Width 13.5 % Platelet Count 208 x10^3/uL Neutrophils (%) (Auto) 76 % Lymphocytes (%) (Auto) 16 % Monocytes (%) (Auto) 8 % Eosinophils (%) (Auto) 0 % Basophils (%) (Auto) 0 % Neutrophils # (Auto) 6.6 x10^3uL Lymphocytes # (Auto) 1.4 x10^3/uL Monocytes # (Auto) 0.7 x10^3/uL Eosinophils # (Auto) 0.0 x10^3/uL Basophils # (Auto) 0.0 x10^3/uL Sodium Level 140 mmol/L Potassium Level 3.7 mmol/L Chloride Level 104 mmol/L Carbon Dioxide Level 24 mmol/L Anion Gap 12 Blood Urea Nitrogen 31 mg/dL Creatinine 1.7 mg/dL Estimated GFR (Cockcroft-Gault) 39.1 BUN/Creatinine Ratio 18 Glucose Level 150 mg/dL Calcium Level 8.5 mg/dL Total Bilirubin 0.6 mg/dL Aspartate Amino Transf (AST/SGOT) 27 U/L Alanine Aminotransferase (ALT/SGPT) 23 U/L Alkaline Phosphatase 83 U/L Total Protein 7.1 g/dL Albumin 3.2 g/dL Albumin/Globulin Ratio 0.8 Current Medications Medications (Trade) Dose Ordered Sig/Abdifatah Route PRN Reason Start Time Stop Time Status Last Admin Dose Admin Acetaminophen (Tylenol) 500 mg PRN Q6HRS PRN PO pain or fever 05/28/20 12:00 Aspirin (Aspirin Chewable) 81 mg DAILY PO 05/29/20 09:00 05/30/20 08:10 Bisacodyl (Dulcolax Tab) 5 mg PRN DAILY PRN PO CONSTIPATION 05/28/20 12:00 Calcium Carbonate/ Glycine (Tums) 500 mg BID PO 05/28/20 21:00 05/30/20 08:12 Lorazepam (Ativan) 2 mg QHS PO 05/28/20 21:00 05/28/20 22:01 DC 05/28/20 20:37 Al Hydroxide/Mg Hydroxide (Mylanta Plus Xs) 15 ml PRN AFTMEALHC PRN PO DYSPEPSIA 05/28/20 12:00 UNV Memantine (Namenda) 10 mg BID PO 05/28/20 21:00 05/28/20 21:57 DC Olanzapine (ZyPREXA ZYDIS) 2.5 mg PRN Q2HRS PRN PO PSYCHOSIS 05/28/20 12:00 05/28/20 21:57 DC Quetiapine Fumarate (SEROquel) 25 mg BID92 PO 05/28/20 14:00 05/30/20 08:11 Quetiapine Fumarate (SEROquel) 50 mg BID92 PO 05/28/20 14:00 05/30/20 08:11 Quetiapine Fumarate (SEROquel) 100 mg QHS PO 05/28/20 21:00 05/28/20 20:37 Sertraline HCl (Zoloft) 100 mg DAILY PO 05/29/20 09:00 05/30/20 08:11 Tizanidine HCl (Zanaflex) 4 mg PRN Q8HRS PRN PO MUSCLE SPASMS 05/28/20 12:00 Trazodone HCl (Desyrel) 100 mg PRN QHS PRN PO INSOMNIA, MAY REPEAT X1 05/28/20 12:00 05/28/20 20:37 Atorvastatin Calcium (Lipitor) 40 mg QHS PO 05/28/20 21:00 Magnesium Hydroxide (Milk Of Magnesia) 2,400 mg PRN QHS PRN PO CONSTIPATION 05/28/20 12:45 Multi-Ingredient Ointment (Analgesic [place]) 1 wendy PRN QID PRN TP MUSCLE PAIN 05/28/20 12:45 Al Hydroxide/Mg Hydroxide (Mylanta Plus Xs) 15 ml PRN AFTMEALHC PRN PO DYSPEPSIA 05/28/20 12:30 Olanzapine (ZyPREXA ZYDIS) 5 mg PRN Q2HRS PRN PO PSYCHOSIS 05/28/20 22:00 Divalproex Sodium (Depakote Sprinkles) 125 mg TID@0900,1300,1700 PO 05/29/20 09:00 05/29/20 18:06 DC Lorazepam (Ativan) 1.5 mg QHS PO 05/29/20 21:00 05/31/20 21:01 Lorazepam (Ativan) 1 mg QHS PO 06/01/20 21:00 06/03/20 21:01 Lorazepam (Ativan) 0.5 mg QHS PO 06/04/20 21:00 06/06/20 21:01 Vitamin D (Vitamin D3) 50,000 unit WEEKLY PO 05/29/20 16:00 05/29/20 17:50 DC Levothyroxine Sodium (Synthroid) 25 mcg DAILY06 PO 05/30/20 06:00 05/30/20 05:44 Vitamin D (Vitamin D3) 50,000 unit WEEKLY PO 05/30/20 09:00 05/30/20 08:11 Current Medications Medications (Trade) Dose Ordered Sig/Abdifatah Route PRN Reason Start Time Stop Time Status Last Admin Dose Admin Levothyroxine Sodium (Synthroid) 25 mcg DAILY06 PO 05/30/20 06:00 05/30/20 05:44 Vitamin D (Vitamin D3) 50,000 unit WEEKLY PO 05/30/20 09:00 05/30/20 08:11 I have reviewed the current psychotropics carefully including drug interactions. Risk benefit ratio favors no change other than as noted in my dictated progress note. Diagnosis: Problems: (1) Anxiety disorder, unspecified (2) Dementia, vascular, with depression (3) Dementia, vascular, with delusions (4) Dementia in Alzheimer's disease with depression (5) Dementia in Alzheimer's disease with delusions (6) Dementia of the Alzheimer's type with early onset with behavioral disturbance (7) Major neurocognitive disorder, due to vascular disease, with behavioral disturbance, mild NORMA AYALA MD May 30, 2020 09:17
--- NOTE | 2020-05-30 13:00 | NUR ---
ACTIVITY THERAPY ASSESSMENT Completed based on notes, information from nursing staff and observations. FORMING YARDAGE CONTROL OPERATOR greeted Pt. in secured hallway; however, Pt. was unphased by her. DATAWAREHOUSE DEVELOPER joined the pair and assisted Pt with his lunch- cutting up chicken, offering him a drink and helping him hand over hand to drink on his own and use fork- soon Pt was feeding himself. FORMING YARDAGE CONTROL OPERATOR noticed dark/ reddish urine draining in his leg bag. DATAWAREHOUSE DEVELOPER explained Pt. has been pulling his catheter out but it will be removed completely after lunch. DATAWAREHOUSE DEVELOPER also explained Pt. does not communicate verbally much at this time but does better answering yes/ no questions. He has yelled out a little, can be combative and is able to walk unassisted but was using a Broda wheelchair closer to admission due to increased sleeping. Pt. is started to increase in alertness. Pt's RN joined the group with a phone call for Pt. and held it up to his ear; however, Pt. continued eating and was indifferent about the phone. Pt's psychosocial lists Pt. enjoys watching sports (golf, [employer] football), playing golf, and card games (Bridge, Tereza Tranmy). Pt. had a chair alarm attached to his clothing. Initial goal aimed to increase sensory stimulation: Pt. will participate in at least five individual Activity Therapy sessions before discharge.
--- NOTE | 2020-05-30 13:24 | NUR ---
Pt began the morning very agitated and confused. He actually self exited the broda chair and attempted to run down the yanez. Verbal encouragement to stop was unsuccessful and this nurse could only hold onto his arm to ensure he remained upright on his feet as he attempted to run. He briskly made his way through the unit and along the way he would violently grab onto door handles and yank on them. Pt would at times attempt to talk, but his speech was unclear and not well-articulated. PRN Zypraxa was administered in an effort to help alleviate his anxiety, impulsivity, and exit seeking behaviors. He has been absent of SI/HI behaviors, it is unknown at this time if he is experiencing VH/AH. He does not appear to be experiencing pain. He is med complaint and complaint with morning assessment. Most of the morning pt has been in the quiet hallway for purpose of reduced stimuli and to be in a closer line of sight for nursing staff. He has a carrillo catheter which is patent; urine appears blood-tinged. Nursing staff anticipates to d/c carrillo later in the shift d/t pt's physical impulsivity and (intentional or accidental) self-removal risk. Will pass on to the next shift.
--- NOTE | 2020-05-30 14:04 | NUR ---
Alvarenga catheter d/c. Pt tolerated removal with difficulty d/t his anxiety/confusion/delusions. Pt required multiple staff members to prevent him from interfering with removal.
[2020-05-30 16:17] VITALS: BP 119/67
--- NOTE | 2020-05-30 17:26 | NUR ---
1400 Seroed held d/t pt being in a state of deep sleep. Dr Muñoz notified
[2020-05-30] MEDS: LORazepam 1 MG TABLET PO SCH ×2 (21:00→21:50)
--- NOTE | 2020-05-30 21:02 | PDOC ---
Exam Note: Danielito Note: Please also refer to the separate dictated note~for this date of service dictated separately.~Patient seen individually. Discussed the patient with Nursing staff reviewed the chart.~Reviewed interim history and current functioning. Reviewed vital signs,~Labs/ Radiology~and current medications noted below. Continue current treatment with the changes noted in the dictated addendum note Assessment: Vital Signs/I&O: Vital Signs Date Time Temp Pulse Resp B/P (MAP) Pulse Ox O2 Delivery O2 Flow Rate FiO2 05/30/20 16:17 97.7 78 16 119/67 (84) 96 05/30/20 06:25 Room Air I & O 05/29/20 05/29/20 05/30/20 15:00 23:00 07:00 Intake Total 580 ml 360 ml 240 ml Output Total 700 ml Balance 580 ml 360 ml -460 ml Current Medications: Meds: Current Medications Medications (Trade) Dose Ordered Sig/Abdifatah Route PRN Reason Start Time Stop Time Status Last Admin Dose Admin Acetaminophen (Tylenol) 500 mg PRN Q6HRS PRN PO pain or fever 05/28/20 12:00 Aspirin (Aspirin Chewable) 81 mg DAILY PO 05/29/20 09:00 05/30/20 08:10 Bisacodyl (Dulcolax Tab) 5 mg PRN DAILY PRN PO 2ND CHOICE CONSTIPATION 05/28/20 12:00 Calcium Carbonate/ Glycine (Tums) 500 mg BID PO 05/28/20 21:00 05/30/20 08:12 Lorazepam (Ativan) 2 mg QHS PO 05/28/20 21:00 05/28/20 22:01 DC 05/28/20 20:37 Al Hydroxide/Mg Hydroxide (Mylanta Plus Xs) 15 ml PRN AFTMEALHC PRN PO DYSPEPSIA 05/28/20 12:00 UNV Memantine (Namenda) 10 mg BID PO 05/28/20 21:00 05/28/20 21:57 DC Olanzapine (ZyPREXA ZYDIS) 2.5 mg PRN Q2HRS PRN PO PSYCHOSIS 05/28/20 12:00 05/28/20 21:57 DC Quetiapine Fumarate (SEROquel) 25 mg BID92 PO 05/28/20 14:00 05/30/20 08:11 Quetiapine Fumarate (SEROquel) 50 mg BID92 PO 05/28/20 14:00 05/30/20 08:11 Quetiapine Fumarate (SEROquel) 100 mg QHS PO 05/28/20 21:00 05/28/20 20:37 Sertraline HCl (Zoloft) 100 mg DAILY PO 05/29/20 09:00 05/30/20 08:11 Tizanidine HCl (Zanaflex) 4 mg PRN Q8HRS PRN PO MUSCLE SPASMS 05/28/20 12:00 Trazodone HCl (Desyrel) 100 mg PRN QHS PRN PO INSOMNIA, MAY REPEAT X1 05/28/20 12:00 05/28/20 20:37 Atorvastatin Calcium (Lipitor) 40 mg QHS PO 05/28/20 21:00 Magnesium Hydroxide (Milk Of Magnesia) 2,400 mg PRN QHS PRN PO 1ST CHOICE CONSTIPATION 05/28/20 12:45 Multi-Ingredient Ointment (Analgesic [place]) 1 wendy PRN QID PRN TP MUSCLE PAIN 05/28/20 12:45 Al Hydroxide/Mg Hydroxide (Mylanta Plus Xs) 15 ml PRN AFTMEALHC PRN PO DYSPEPSIA 05/28/20 12:30 Olanzapine (ZyPREXA ZYDIS) 5 mg PRN Q2HRS PRN PO PSYCHOSIS 05/28/20 22:00 05/30/20 07:30 Divalproex Sodium (Depakote Sprinkles) 125 mg TID@0900,1300,1700 PO 05/29/20 09:00 05/29/20 18:06 DC Lorazepam (Ativan) 1.5 mg QHS PO 05/29/20 21:00 05/31/20 21:01 Lorazepam (Ativan) 1 mg QHS PO 06/01/20 21:00 06/03/20 21:01 Lorazepam (Ativan) 0.5 mg QHS PO 06/04/20 21:00 06/06/20 21:01 Vitamin D (Vitamin D3) 50,000 unit WEEKLY PO 05/29/20 16:00 05/29/20 17:50 DC Levothyroxine Sodium (Synthroid) 25 mcg DAILY06 PO 05/30/20 06:00 05/30/20 05:44 Vitamin D (Vitamin D3) 50,000 unit WEEKLY PO 05/30/20 09:00 05/30/20 08:11 Buspirone HCl (Buspar) 5 mg 0900,1700 PO 05/31/20 09:00 Current Medications Medications (Trade) Dose Ordered Sig/Abdifatah Route PRN Reason Start Time Stop Time Status Last Admin Dose Admin Levothyroxine Sodium (Synthroid) 25 mcg DAILY06 PO 05/30/20 06:00 05/30/20 05:44 Vitamin D (Vitamin D3) 50,000 unit WEEKLY PO 05/30/20 09:00 05/30/20 08:11 I have reviewed the current psychotropics carefully including drug interactions. Risk benefit ratio favors no change other than as noted in my dictated progress note. Diagnosis: Problems: (1) Anxiety disorder, unspecified (2) Dementia, vascular, with depression (3) Dementia, vascular, with delusions (4) Dementia in Alzheimer's disease with depression (5) Dementia in Alzheimer's disease with delusions (6) Dementia of the Alzheimer's type with early onset with behavioral disturbance (7) Major neurocognitive disorder, due to vascular disease, with behavioral disturbance, mild NORMA AYALA MD May 30, 2020 21:02
[2020-05-30] MEDS: ATORVASTATIN CALCIUM 20 MG TABLET PO SCH (21:50)
[2020-05-30] MEDS: QUEtiapine 100 MG TABLET. PO SCH (21:50)
--- NOTE | 2020-05-30 22:08 | NUR ---
When awaken for cares pt very resistive and tries to hit staff. Brief was dry bladder scan showed 250cc. Meds were given crushed in applesauce. Pt very confused has no comprehensible speech and is restless when awake.
--- NOTE | 2020-05-30 22:52 | PN ---
DATE: 05/30/2020 PSYCHIATRIC PROGRESS NOTE This note covers elements not covered in my initial note 05/30/2020. SUBJECTIVE: I met with the patient evening of 05/30/2020 in his room. Per MESSI Love, the patient slept 8-1/2 hours previous night. He remains confused. He is sleeping in the Broda chair with Alvarenga in place, suddenly got up and started running down the hallway. Nursing staff intervened to keep him from falling. He has been mumbling in his speech. REVIEW OF SYSTEMS: Ambulation impaired. No CV, , pulmonary, eye, ENT system symptoms on review. Reliability poor. MENTAL STATUS EXAM: Oriented to himself. Insight, judgment, recent and remote memory, attention, concentration, fund of knowledge poor, consistent with his diagnosis. Seroquel at 1400 was held due to sedation. LABORATORY DATA: Reviewed. IMPRESSION: Unchanged from initial note. PLAN: Start BuSpar 5 mg 9:00 a.m. and 5:00 p.m. for anxiety. Continue rest of the psychotropics unchanged. Reviewed drug interactions, risk-benefit ratio. MAN Kadie AYALA MD DR: BRAVO/jun JOB#: [id number] / [id number]
[2020-05-31] MEDS: LEVOTHYROXINE 25 MCG TABLET. PO SCH (05:42)
[2020-05-31 06:02] VITALS: BP 131/77
--- NOTE | 2020-05-31 06:28 | NUR ---
Bladder scan 280cc pt has voided x2 though the night.
[2020-05-31] MEDS: CALCIUM CARBONATE 500 MG TAB.CHEW PO SCH ×2 (08:27→20:40)
[2020-05-31] MEDS: ASPIRIN CHEWABLE 81 MG TABLET. PO SCH (08:27)
[2020-05-31] MEDS: busPIRone 5 MG TABLET. PO SCH ×2 (08:27→17:06)
[2020-05-31] MEDS: QUEtiapine 25 MG TABLET. PO SCH ×2 (08:27→14:59)
[2020-05-31] MEDS: SERTRALINE 100 MG TABLET. PO SCH (08:28)
[2020-05-31] MEDS: QUEtiapine 50 MG TABLET. PO SCH ×2 (08:28→20:42)
--- NOTE | 2020-05-31 11:02 | NUR ---
WEEKLY ACTIVITY THERAPY NOTE Date of Admission: 05/28/20 Date of AT Assessment: 05/30/20 Precipitating behaviors that initiated intake and admission: increased behaviors, agitatied, wandering gabbed peers arm on 2 separate occasions, sundowning, impulsive, insomnia, some physical aggression. Goal aimed: to increase sensory stimulation Initial Goal: Pt. will participate in at least five individual Activity Therapy sessions before discharge. Weekly progress towards goal: goal evaluation begins next week Group participation level: zero Weekly highlights: arrived on unit Behaviors observed: sleepy, in secured hallway, difficult to engage in conversation Plan: no change to goal Beneficial adaptations:
--- NOTE | 2020-05-31 12:39 | TX PLAN ---
Interdisciplinary Tx Plan Admission Information May 28, 2020 at 10:40 Legal Status (on Admission): Voluntary DPOA/Guardian Name: Janee Rodarte Contact Other Contact Name: Ro Other Contact Verified Code Status: DNR Allergies: Coded Allergies: No Known Drug Allergies (Unverified , 05/26/20) Diagnoses Primary Diagnosis: (1) Anxiety disorder, unspecified (2) Dementia, vascular, with depression (3) Dementia, vascular, with delusions (4) Dementia in Alzheimer's disease with depression (5) Dementia in Alzheimer's disease with delusions (6) Dementia of the Alzheimer's type with early onset with behavioral disturbance (7) Major neurocognitive disorder, due to vascular disease, with behavioral disturbance, mild Reasons for Admission: Aggressive, Agitated, Sig. Change Sleep, Angry, Combative, Confusion/Disoriented Problem in Patient's Words: Pt has had to have a 1:1 for lack of sleep. He is active at night and doesn't sleep. The most sleep recently that he has gotten has been about four hours. Ambien has been tried and maybe some Lorazepam. He, also, has been getting into other patient rooms. Finally, he has been agitated. Additional Admission Comments: Per intake record, pt has increased behaviors of agitation, wandering, grabbed a peers arm on two seperate occasions, sundowning, impulsive, insomnia, some physical aggression. Problems Active Problems: Aggression, agitation, restless, confusion, lack of sleep, wandering Inactive Problems: None noted at this time. Pt Strengths/Limitations Ability for Boyd: Poor Cognitive Functioning/Ability: Poor Communication Skills/Ability: Poor Financial Resources: Good Insight/Judgement: Poor Intellectual Ability: Fair Physical Health: Fair Social Skills: Poor Stability in Family: Good Stability in School/Work: Good Verbal Skills: Fair Discharge Criteria Discharge Criteria: No need for close observ., Able to meet health needs, Adequate arrangements @DC, Verbal commit med comply, Improved behavior Other Discharge Comments: None Preliminary Discharge Plan Preliminary DC Plan: Memory Care Special Precautions Special Precautions: Agitation/Assault Fall Risk: Moderate Initial D/C Plan Pt will return to [facility] once stable. Identified Discharge Needs: None noted at this time. Currently Utilized Resources Currently Utilized Resources/P: PCP is Dr. Leung DPOA is Janee velasquez Living Facility is [facility] Community Resources: None noted at this time. Identified Problems/Hx/Goals Objectives/Short-Term Goals Short Term Goals: Control abnormal behavior, Dec. Aggression, Dec. Hallucination/Delus, Dec. Outbursts, Medication Stabilization, Monitor Med Effects, Prevent Deterioration Short Term Goals in Patient's: Dtr would like to see pt eliminate aggression and be compliant with medications. Interventions/Frequency Staff Interventions/Frequency&: Psychiatry to assess pt three times per week for medication management. Nursing to assess pt behaviors, monitor medications, and complete 15 minute checks daily. Social work to see pt at least two times weekly to aid in return to placement. Activities to encourage pt to participate in group activities daily. 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 Education: Medical School Community Follow-up PCP-Dr. Leung Community Provider/Family Inpu: Pt Janee velasquez will participate in weekly treatment planning meetings. Treatment Plan Explained Patient/National Sales Director had this treatment plan explained to him/her as indicated by the signature below and has been given the opportunity to ask questions and make suggestions: Date: Patient/National Sales Director Signature: HUEY PETERS May 31, 2020 12:39
[2020-05-31 16:01] VITALS: BP 114/59
--- NOTE | 2020-05-31 18:30 | NUR ---
Patient has had periods of drowsiness with periods of alertness, usually more alert at meal times. He was wandering and confused when awake, withdrawn to his room between meals. Patient was able to feed himself at meals. He was compliant with medications and assessments; he was agitated when staff obtained vital signs. Will continue to monitor and report to oncoming staff.
[2020-05-31] MEDS: ATORVASTATIN CALCIUM 20 MG TABLET PO SCH (20:40)
--- NOTE | 2020-05-31 21:08 | PDOC ---
Exam Note: Danielito Note: Please also refer to the separate dictated note~for this date of service dictated separately.~Patient seen individually. Discussed the patient with Nursing staff reviewed the chart.~Reviewed interim history and current functioning. Reviewed vital signs,~Labs/ Radiology~and current medications noted below. Continue current treatment with the changes noted in the dictated addendum note Assessment: Vital Signs/I&O: Vital Signs Date Time Temp Pulse Resp B/P (MAP) Pulse Ox O2 Delivery O2 Flow Rate FiO2 05/31/20 16:01 97.7 77 18 114/59 (77) 98 05/30/20 06:25 Room Air I & O 05/30/20 05/30/20 05/31/20 14:59 22:59 06:59 Intake Total 400 ml 0 ml Balance 400 ml 0 ml Current Medications: Meds: Current Medications Medications (Trade) Dose Ordered Sig/Abdifatah Route PRN Reason Start Time Stop Time Status Last Admin Dose Admin Acetaminophen (Tylenol) 500 mg PRN Q6HRS PRN PO pain or fever 05/28/20 12:00 Aspirin (Aspirin Chewable) 81 mg DAILY PO 05/29/20 09:00 05/31/20 08:27 Bisacodyl (Dulcolax Tab) 5 mg PRN DAILY PRN PO 2ND CHOICE CONSTIPATION 05/28/20 12:00 Calcium Carbonate/ Glycine (Tums) 500 mg BID PO 05/28/20 21:00 05/31/20 20:40 Lorazepam (Ativan) 2 mg QHS PO 05/28/20 21:00 05/28/20 22:01 DC 05/28/20 20:37 Al Hydroxide/Mg Hydroxide (Mylanta Plus Xs) 15 ml PRN AFTMEALHC PRN PO DYSPEPSIA 05/28/20 12:00 UNV Memantine (Namenda) 10 mg BID PO 05/28/20 21:00 05/28/20 21:57 DC Olanzapine (ZyPREXA ZYDIS) 2.5 mg PRN Q2HRS PRN PO PSYCHOSIS 05/28/20 12:00 05/28/20 21:57 DC Quetiapine Fumarate (SEROquel) 25 mg BID92 PO 05/28/20 14:00 05/31/20 08:27 Quetiapine Fumarate (SEROquel) 50 mg BID92 PO 05/28/20 14:00 05/31/20 13:24 DC 05/31/20 08:28 Quetiapine Fumarate (SEROquel) 100 mg QHS PO 05/28/20 21:00 05/31/20 13:24 DC 05/30/20 21:50 Sertraline HCl (Zoloft) 100 mg DAILY PO 05/29/20 09:00 05/31/20 08:28 Tizanidine HCl (Zanaflex) 4 mg PRN Q8HRS PRN PO MUSCLE SPASMS 05/28/20 12:00 Trazodone HCl (Desyrel) 100 mg PRN QHS PRN PO INSOMNIA, MAY REPEAT X1 05/28/20 12:00 05/28/20 20:37 Atorvastatin Calcium (Lipitor) 40 mg QHS PO 05/28/20 21:00 05/31/20 20:40 Magnesium Hydroxide (Milk Of Magnesia) 2,400 mg PRN QHS PRN PO 1ST CHOICE CONSTIPATION 05/28/20 12:45 Multi-Ingredient Ointment (Analgesic [place]) 1 wendy PRN QID PRN TP MUSCLE PAIN 05/28/20 12:45 Al Hydroxide/Mg Hydroxide (Mylanta Plus Xs) 15 ml PRN AFTMEALHC PRN PO DYSPEPSIA 05/28/20 12:30 Olanzapine (ZyPREXA ZYDIS) 5 mg PRN Q2HRS PRN PO PSYCHOSIS 05/28/20 22:00 05/30/20 07:30 Divalproex Sodium (Depakote Sprinkles) 125 mg TID@0900,1300,1700 PO 05/29/20 09:00 05/29/20 18:06 DC Lorazepam (Ativan) 1.5 mg QHS PO 05/29/20 21:00 05/31/20 21:01 DC 05/30/20 21:50 Lorazepam (Ativan) 1 mg QHS PO 06/01/20 21:00 06/03/20 21:01 Lorazepam (Ativan) 0.5 mg QHS PO 06/04/20 21:00 06/06/20 21:01 Vitamin D (Vitamin D3) 50,000 unit WEEKLY PO 05/29/20 16:00 05/29/20 17:50 DC Levothyroxine Sodium (Synthroid) 25 mcg DAILY06 PO 05/30/20 06:00 05/31/20 05:42 Vitamin D (Vitamin D3) 50,000 unit WEEKLY PO 05/30/20 09:00 05/30/20 08:11 Buspirone HCl (Buspar) 5 mg 0900,1700 PO 05/31/20 09:00 05/31/20 17:06 Quetiapine Fumarate (SEROquel) 50 mg QHS PO 05/31/20 21:00 05/31/20 20:42 Current Medications Medications (Trade) Dose Ordered Sig/Abdifatah Route PRN Reason Start Time Stop Time Status Last Admin Dose Admin Buspirone HCl (Buspar) 5 mg 0900,1700 PO 05/31/20 09:00 05/31/20 17:06 Quetiapine Fumarate (SEROquel) 50 mg QHS PO 05/31/20 21:00 05/31/20 20:42 I have reviewed the current psychotropics carefully including drug interactions. Risk benefit ratio favors no change other than as noted in my dictated progress note. Diagnosis: Problems: (1) Anxiety disorder, unspecified (2) Dementia, vascular, with depression (3) Dementia, vascular, with delusions (4) Dementia in Alzheimer's disease with depression (5) Dementia in Alzheimer's disease with delusions (6) Dementia of the Alzheimer's type with early onset with behavioral disturbance (7) Major neurocognitive disorder, due to vascular disease, with behavioral disturbance, mild NORMA AYALA MD May 31, 2020 21:08
[2020-06-01] MEDS: traZODone 100 MG TABLET. PO PRN (01:51)
[2020-06-01] MEDS: tiZANidine 4 MG TABLET. PO PRN (01:51)
--- NOTE | 2020-06-01 02:40 | NUR ---
Last evening pt slept awhile and when he woke up he wandered around exit seeking and entering others rooms. He took meds crushed in pudding in one bite. When showering he was combative a times. After gong to bed he slept awhile and when he awoke he was restless and picking at things in the air. PRN meds were given yet he has remained awake.
[2020-06-01] MEDS: LEVOTHYROXINE 25 MCG TABLET. PO SCH (05:13)
[2020-06-01] MEDS: ASPIRIN CHEWABLE 81 MG TABLET. PO SCH (05:14)
[2020-06-01] MEDS: busPIRone 5 MG TABLET. PO SCH ×2 (05:14→17:00)
[2020-06-01] MEDS: CALCIUM CARBONATE 500 MG TAB.CHEW PO SCH ×2 (05:14→20:40)
[2020-06-01] MEDS: SERTRALINE 100 MG TABLET. PO SCH (05:14)
[2020-06-01] MEDS: QUEtiapine 25 MG TABLET. PO SCH ×2 (05:14→14:00)
[2020-06-01 05:46] LABS: BASO # 0.1 x10^3/uL (0.0-0.2); BASO % 1 % (0-3); EOS # 0.4 x10^3/uL (0.0-0.7); EOS % 5 % (0-3); HEMATOCRIT 41.8 % (39.0-53.0); HEMOGLOBIN 13.5 g/dL (13.0-17.5); LYMPH # 2.4 x10^3/uL (1.0-4.8); LYMPH % 30 % (24-48); MEAN CORPUSCULAR HEMOGLOBIN 30 pg (25-35); MEAN CORPUSCULAR HGB CONC 32 g/dL (31-37); MEAN CORPUSCULAR VOLUME 94 fL (79-100); MONO # 0.9 x10^3/uL (0.0-1.1); MONO % 11 % (0-9); NEUT # 4.3 x10^3uL (1.8-7.7); NEUT % 53 % (31-73); PLATELET COUNT 223 x10^3/uL (140-400); RED BLOOD COUNT 4.47 x10^6/uL (4.30-5.70); RED CELL DISTRIBUTION WIDTH 13.7 % (11.5-14.5)
[2020-06-01 06:02] LABS: ALBUMIN 3.1 g/dL (3.4-5.0); ALBUMIN/GLOBULIN RATIO 0.8 (1.0-1.7); ALK PHOS 69 U/L (46-116); ALT (SGPT) 29 U/L (16-63); ANION GAP 9 (6-14); AST (SGOT) 23 U/L (15-37); BLOOD UREA NITROGEN 43 mg/dL (8-26); BUN/CREATININE RATIO 25 (6-20); CALCIUM 9.1 mg/dL (8.5-10.1); CARBON DIOXIDE 27 mmol/L (21-32); CHLORIDE 110 mmol/L (98-107); CREATININE 1.7 mg/dL (0.7-1.3); GFR 39.1; GLUCOSE 102 mg/dL (70-99); POTASSIUM 4.3 mmol/L (3.5-5.1); SODIUM 146 mmol/L (136-145); TOTAL BILIRUBIN 0.5 mg/dL (0.2-1.0); TOTAL PROTEIN 7.2 g/dL (6.4-8.2); VAL ACID 3 mcg/mL (50-100)
[2020-06-01 06:35] VITALS: BP 115/69
--- NOTE | 2020-06-01 06:42 | NUR ---
Bladder scan 355ml, pt has voided x2 through the night. He has remained awake in spite of PRN meds he laid in bed reaching at unseen things in the air and moving his covers around.
--- NOTE | 2020-06-01 14:39 | NUR ---
Pt remains confused, periodically impulsive, and displays unintelligible speech. He has been appropriate with behaviors overall however he required nurse interaction to reinforce a request by PARKING INSPECTOR for him to sit and not attempt to self amb. He has been med compliant with medications floated in pudding. Part of the later afternoon he spent laying in bed awake and playing with a pillow. He has been absent of aggressive behaviors thus far. Will pass on to the next shift. Addendum: 06/01/20 at 1453 by JAMES CROWDER RN Dietary reported to this nurse that when she visited with him she noticed a chewed up piece of a medication cup in his mouth. This nurse discussed pt's attempts to consume non-food items with PARKING INSPECTOR and gave instruction for them to observe him closely for further attempts. They verbalized understanding.
--- NOTE | 2020-06-01 18:08 | NUR ---
1500 dose of Buspar 5 mg held. Pt was in a deep sleep and would only verbally respond to staff with moans/grunts. He remained flat on his back, eyes closed, and open mouth breathing. This nurse attempted to wake him (loudly calling his name, shaking of foot and arm) multiple times over the course of 1 hour and pt would not wake further. Breathing even and unlabored, no signs of distress. Color of skin appropriate for ethnicity, warm and dry. Cap refill less than 3 seconds. Will pass to the next shift. Addendum: 06/01/20 at 1820 by JAMES CROWDER RN 1700 dose, not 1500 dose
[2020-06-01] MEDS: QUEtiapine 50 MG TABLET. PO SCH (20:39)
[2020-06-01] MEDS: ATORVASTATIN CALCIUM 20 MG TABLET PO SCH (20:40)
[2020-06-01] MEDS: LORazepam 1 MG TABLET PO SCH (20:40)
--- NOTE | 2020-06-01 20:55 | PDOC ---
Exam Note: Danielito Note: Please also refer to the separate dictated note~for this date of service dictated separately.~Patient seen individually. Discussed the patient with Nursing staff reviewed the chart.~Reviewed interim history and current functioning. Reviewed vital signs,~Labs/ Radiology~and current medications noted below. Continue current treatment with the changes noted in the dictated addendum note Assessment: Vital Signs/I&O: Vital Signs Date Time Temp Pulse Resp B/P (MAP) Pulse Ox O2 Delivery O2 Flow Rate FiO2 06/01/20 15:59 98.8 75 18 96 05/30/20 06:25 Room Air I & O 05/31/20 05/31/20 06/01/20 15:00 23:00 07:00 Intake Total 480 ml 480 ml Balance 480 ml 480 ml Labs: Laboratory Tests Test 06/01/20 05:39 White Blood Count 8.0 x10^3/uL (4.0-11.0) Red Blood Count 4.47 x10^6/uL (4.30-5.70) Hemoglobin 13.5 g/dL (13.0-17.5) Hematocrit 41.8 % (39.0-53.0) Mean Corpuscular Volume 94 fL (79-100) Mean Corpuscular Hemoglobin 30 pg (25-35) Mean Corpuscular Hemoglobin Concent 32 g/dL (31-37) Red Cell Distribution Width 13.7 % (11.5-14.5) Platelet Count 223 x10^3/uL (140-400) Neutrophils (%) (Auto) 53 % (31-73) Lymphocytes (%) (Auto) 30 % (24-48) Monocytes (%) (Auto) 11 % (0-9) H Eosinophils (%) (Auto) 5 % (0-3) H Basophils (%) (Auto) 1 % (0-3) Neutrophils # (Auto) 4.3 x10^3uL (1.8-7.7) Lymphocytes # (Auto) 2.4 x10^3/uL (1.0-4.8) Monocytes # (Auto) 0.9 x10^3/uL (0.0-1.1) Eosinophils # (Auto) 0.4 x10^3/uL (0.0-0.7) Basophils # (Auto) 0.1 x10^3/uL (0.0-0.2) Sodium Level 146 mmol/L (136-145) H Potassium Level 4.3 mmol/L (3.5-5.1) Chloride Level 110 mmol/L (98-107) H Carbon Dioxide Level 27 mmol/L (21-32) Anion Gap 9 (6-14) Blood Urea Nitrogen 43 mg/dL (8-26) H Creatinine 1.7 mg/dL (0.7-1.3) H Estimated GFR (Cockcroft-Gault) 39.1 BUN/Creatinine Ratio 25 (6-20) H Glucose Level 102 mg/dL (70-99) H Calcium Level 9.1 mg/dL (8.5-10.1) Total Bilirubin 0.5 mg/dL (0.2-1.0) Aspartate Amino Transferase (AST) 23 U/L (15-37) Alanine Aminotransferase (ALT) 29 U/L (16-63) Alkaline Phosphatase 69 U/L (46-116) Total Protein 7.2 g/dL (6.4-8.2) Albumin 3.1 g/dL (3.4-5.0) L Albumin/Globulin Ratio 0.8 (1.0-1.7) L Valproic Acid Level 3 mcg/mL (50-100) L Valproic Acid Last Dose Date 05/31/2020 Valproic Acid Last Dose Time 2100 Current Medications: Meds: Laboratory Tests Test 06/01/20 05:39 White Blood Count 8.0 x10^3/uL Red Blood Count 4.47 x10^6/uL Hemoglobin 13.5 g/dL Hematocrit 41.8 % Mean Corpuscular Volume 94 fL Mean Corpuscular Hemoglobin 30 pg Mean Corpuscular Hemoglobin Concent 32 g/dL Red Cell Distribution Width 13.7 % Platelet Count 223 x10^3/uL Neutrophils (%) (Auto) 53 % Lymphocytes (%) (Auto) 30 % Monocytes (%) (Auto) 11 % Eosinophils (%) (Auto) 5 % Basophils (%) (Auto) 1 % Neutrophils # (Auto) 4.3 x10^3uL Lymphocytes # (Auto) 2.4 x10^3/uL Monocytes # (Auto) 0.9 x10^3/uL Eosinophils # (Auto) 0.4 x10^3/uL Basophils # (Auto) 0.1 x10^3/uL Sodium Level 146 mmol/L Potassium Level 4.3 mmol/L Chloride Level 110 mmol/L Carbon Dioxide Level 27 mmol/L Anion Gap 9 Blood Urea Nitrogen 43 mg/dL Creatinine 1.7 mg/dL Estimated GFR (Cockcroft-Gault) 39.1 BUN/Creatinine Ratio 25 Glucose Level 102 mg/dL Calcium Level 9.1 mg/dL Total Bilirubin 0.5 mg/dL Aspartate Amino Transf (AST/SGOT) 23 U/L Alanine Aminotransferase (ALT/SGPT) 29 U/L Alkaline Phosphatase 69 U/L Total Protein 7.2 g/dL Albumin 3.1 g/dL Albumin/Globulin Ratio 0.8 Valproic Acid (Depakene) Level 3 mcg/mL Valproic Acid Last Dose Date 05/31/2020 Valproic Acid Last Dose Time 2100 Current Medications Medications (Trade) Dose Ordered Sig/Abdifatah Route PRN Reason Start Time Stop Time Status Last Admin Dose Admin Acetaminophen (Tylenol) 500 mg PRN Q6HRS PRN PO pain or fever 05/28/20 12:00 Aspirin (Aspirin Chewable) 81 mg DAILY PO 05/29/20 09:00 06/01/20 05:14 Bisacodyl (Dulcolax Tab) 5 mg PRN DAILY PRN PO 2ND CHOICE CONSTIPATION 05/28/20 12:00 Calcium Carbonate/ Glycine (Tums) 500 mg BID PO 05/28/20 21:00 06/01/20 20:40 Lorazepam (Ativan) 2 mg QHS PO 05/28/20 21:00 05/28/20 22:01 DC 05/28/20 20:37 Al Hydroxide/Mg Hydroxide (Mylanta Plus Xs) 15 ml PRN AFTMEALHC PRN PO DYSPEPSIA 05/28/20 12:00 UNV Memantine (Namenda) 10 mg BID PO 05/28/20 21:00 05/28/20 21:57 DC Olanzapine (ZyPREXA ZYDIS) 2.5 mg PRN Q2HRS PRN PO PSYCHOSIS 05/28/20 12:00 05/28/20 21:57 DC Quetiapine Fumarate (SEROquel) 25 mg BID92 PO 05/28/20 14:00 06/01/20 14:00 Quetiapine Fumarate (SEROquel) 50 mg BID92 PO 05/28/20 14:00 05/31/20 13:24 DC 05/31/20 08:28 Quetiapine Fumarate (SEROquel) 100 mg QHS PO 05/28/20 21:00 05/31/20 13:24 DC 05/30/20 21:50 Sertraline HCl (Zoloft) 100 mg DAILY PO 05/29/20 09:00 06/01/20 05:14 Tizanidine HCl (Zanaflex) 4 mg PRN Q8HRS PRN PO MUSCLE SPASMS 05/28/20 12:00 06/01/20 01:51 Trazodone HCl (Desyrel) 100 mg PRN QHS PRN PO INSOMNIA, MAY REPEAT X1 05/28/20 12:00 06/01/20 01:51 Atorvastatin Calcium (Lipitor) 40 mg QHS PO 05/28/20 21:00 06/01/20 20:40 Magnesium Hydroxide (Milk Of Magnesia) 2,400 mg PRN QHS PRN PO 1ST CHOICE CONSTIPATION 05/28/20 12:45 Multi-Ingredient Ointment (Analgesic [place]) 1 wendy PRN QID PRN TP MUSCLE PAIN 05/28/20 12:45 Al Hydroxide/Mg Hydroxide (Mylanta Plus Xs) 15 ml PRN AFTMEALHC PRN PO DYSPEPSIA 05/28/20 12:30 Olanzapine (ZyPREXA ZYDIS) 5 mg PRN Q2HRS PRN PO PSYCHOSIS 05/28/20 22:00 05/30/20 07:30 Divalproex Sodium (Depakote Sprinkles) 125 mg TID@0900,1300,1700 PO 05/29/20 09:00 05/29/20 18:06 DC Lorazepam (Ativan) 1.5 mg QHS PO 05/29/20 21:00 05/31/20 21:01 DC 05/30/20 21:50 Lorazepam (Ativan) 1 mg QHS PO 06/01/20 21:00 06/03/20 21:01 06/01/20 20:40 Lorazepam (Ativan) 0.5 mg QHS PO 06/04/20 21:00 06/06/20 21:01 Vitamin D (Vitamin D3) 50,000 unit WEEKLY PO 05/29/20 16:00 05/29/20 17:50 DC Levothyroxine Sodium (Synthroid) 25 mcg DAILY06 PO 05/30/20 06:00 06/01/20 05:13 Vitamin D (Vitamin D3) 50,000 unit WEEKLY PO 05/30/20 09:00 05/30/20 08:11 Buspirone HCl (Buspar) 5 mg 0900,1700 PO 05/31/20 09:00 06/01/20 05:14 Quetiapine Fumarate (SEROquel) 50 mg QHS PO 05/31/20 21:00 06/01/20 20:39 Current Medications Medications (Trade) Dose Ordered Sig/Abdifatah Route PRN Reason Start Time Stop Time Status Last Admin Dose Admin Lorazepam (Ativan) 1 mg QHS PO 06/01/20 21:00 06/03/20 21:01 06/01/20 20:40 Quetiapine Fumarate (SEROquel) 50 mg QHS PO 05/31/20 21:00 06/01/20 20:39 I have reviewed the current psychotropics carefully including drug interactions. Risk benefit ratio favors no change other than as noted in my dictated progress note. Diagnosis: Problems: (1) Anxiety disorder, unspecified (2) Dementia, vascular, with depression (3) Dementia, vascular, with delusions (4) Dementia in Alzheimer's disease with depression (5) Dementia in Alzheimer's disease with delusions (6) Dementia of the Alzheimer's type with early onset with behavioral disturbance (7) Major neurocognitive disorder, due to vascular disease, with behavioral disturbance, mild NORMA AYALA MD Jun 01, 2020 20:55
--- NOTE | 2020-06-01 23:05 | NUR ---
Pt is restless in bed, reaching out in front of him. Pt repeating help me up, encouraged pt to stay in bed for safety. Pt compliant with assessment and medications crushed in pudding. Bed alarm in place.
[2020-06-02] MEDS: tiZANidine 4 MG TABLET. PO PRN (03:23)
--- NOTE | 2020-06-02 03:29 | NUR ---
Patient yelling out. He had been incontinent of an extra large amount of urine. Patient required a full bed and clothing change. He was very resistive, yelling, trying to squeeze and scratch staff, and making attempts to punch. Staff assist of 3 required to change patient and move him to the clean bed. After being settled, he continued to yell and was picking at the air. PRN Zydis and Zanaflex given to patient at that time, with good effect. Will continue to monitor.
[2020-06-02] MEDS: LEVOTHYROXINE 25 MCG TABLET. PO SCH (05:38)
[2020-06-02] MEDS: CALCIUM CARBONATE 500 MG TAB.CHEW PO SCH ×2 (05:38→21:00)
[2020-06-02] MEDS: busPIRone 5 MG TABLET. PO SCH ×2 (05:38→17:00)
[2020-06-02] MEDS: QUEtiapine 25 MG TABLET. PO SCH ×3 (05:38→12:50)
[2020-06-02] MEDS: SERTRALINE 100 MG TABLET. PO SCH (05:39)
[2020-06-02] MEDS: ASPIRIN CHEWABLE 81 MG TABLET. PO SCH (05:39)
--- NOTE | 2020-06-02 07:22 | PDOC ---
Exam Note: Danielito Note: This note is a late entry for 05/31/2020 covers elements not covered in my initial note. Subjective: The patient was seen face to face in the morning of 05/31/2020 for a treatment team meeting with Rosie Mejia, Payton Lechuga and Christina (social psychologist), Maisha Capone, activity therapy and Freddie SWENSON, reviewed the chart. The patients daughter Tierra also attended the lengthy treatment team meeting. The patient slept 1-3/4 hours previous night. Appetite is 70%. Daughter gave a very coherent history of the onset of his dementia around 89. 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 Review of Systems: He was combative previous night, somewhat fidgety. No CV, , pulmonary, eye, ENT system symptoms on review. His [place] has been removed. Mental Status Exam: The patient is oriented to himself. Insight and judgment, recent and remote memory, attention and concentration, fund of knowledge is poor consistent with his diagnosis. Laboratory Data: Reviewed. Impression: Bipolar 1 disorder mixed with psychotic features. OCD. Anxiety di sorder unspecified. Impulse control disorder unspecified. Plan: We had a lengthy discussion about treatment options, medication, placement options. The patients 2 p.m. Seroquel was held. He was then combative, wandering and then laid down in bed and did better. Continue current psychotropics. He is on Seroquel 75 mg 9 a.m. and 2 p.m., 100 mg h.s. We will reduce this to 25 mg twice a day and 50 mg h.s. Consider Depakote as a mood stabilizer. Assessment: Vital Signs/I&O: Vital Signs Date Time Temp Pulse Resp B/P (MAP) Pulse Ox O2 Delivery O2 Flow Rate FiO2 06/01/20 15:59 98.8 75 18 96 05/30/20 06:25 Room Air I & O 06/01/20 06/01/20 06/02/20 15:00 23:00 07:00 Intake Total 240 ml 0 ml Balance 240 ml 0 ml Current Medications: Meds: Current Medications Medications (Trade) Dose Ordered Sig/Abdifatah Route PRN Reason Start Time Stop Time Status Last Admin Dose Admin Acetaminophen (Tylenol) 500 mg PRN Q6HRS PRN PO pain or fever 05/28/20 12:00 Aspirin (Aspirin Chewable) 81 mg DAILY PO 05/29/20 09:00 06/02/20 05:39 Bisacodyl (Dulcolax Tab) 5 mg PRN DAILY PRN PO 2ND CHOICE CONSTIPATION 05/28/20 12:00 Calcium Carbonate/ Glycine (Tums) 500 mg BID PO 05/28/20 21:00 06/02/20 05:38 Lorazepam (Ativan) 2 mg QHS PO 05/28/20 21:00 05/28/20 22:01 DC 05/28/20 20:37 Al Hydroxide/Mg Hydroxide (Mylanta Plus Xs) 15 ml PRN AFTMEALHC PRN PO DYSPEPSIA 05/28/20 12:00 UNV Memantine (Namenda) 10 mg BID PO 05/28/20 21:00 05/28/20 21:57 DC Olanzapine (ZyPREXA ZYDIS) 2.5 mg PRN Q2HRS PRN PO PSYCHOSIS 05/28/20 12:00 05/28/20 21:57 DC Quetiapine Fumarate (SEROquel) 25 mg BID92 PO 05/28/20 14:00 06/02/20 05:38 Quetiapine Fumarate (SEROquel) 50 mg BID92 PO 05/28/20 14:00 05/31/20 13:24 DC 05/31/20 08:28 Quetiapine Fumarate (SEROquel) 100 mg QHS PO 05/28/20 21:00 05/31/20 13:24 DC 05/30/20 21:50 Sertraline HCl (Zoloft) 100 mg DAILY PO 05/29/20 09:00 06/02/20 05:39 Tizanidine HCl (Zanaflex) 4 mg PRN Q8HRS PRN PO MUSCLE SPASMS 05/28/20 12:00 06/02/20 03:23 Trazodone HCl (Desyrel) 100 mg PRN QHS PRN PO INSOMNIA, MAY REPEAT X1 05/28/20 12:00 06/01/20 01:51 Atorvastatin Calcium (Lipitor) 40 mg QHS PO 05/28/20 21:00 06/01/20 20:40 Magnesium Hydroxide (Milk Of Magnesia) 2,400 mg PRN QHS PRN PO 1ST CHOICE CONSTIPATION 05/28/20 12:45 Multi-Ingredient Ointment (Analgesic [place]) 1 wendy PRN QID PRN TP MUSCLE PAIN 05/28/20 12:45 Al Hydroxide/Mg Hydroxide (Mylanta Plus Xs) 15 ml PRN AFTMEALHC PRN PO DYSPEPSIA 05/28/20 12:30 Olanzapine (ZyPREXA ZYDIS) 5 mg PRN Q2HRS PRN PO PSYCHOSIS 05/28/20 22:00 06/02/20 03:23 Divalproex Sodium (Depakote Sprinkles) 125 mg TID@0900,1300,1700 PO 05/29/20 09:00 05/29/20 18:06 DC Lorazepam (Ativan) 1.5 mg QHS PO 05/29/20 21:00 05/31/20 21:01 DC 05/30/20 21:50 Lorazepam (Ativan) 1 mg QHS PO 06/01/20 21:00 06/03/20 21:01 06/01/20 20:40 Lorazepam (Ativan) 0.5 mg QHS PO 06/04/20 21:00 06/06/20 21:01 Vitamin D (Vitamin D3) 50,000 unit WEEKLY PO 05/29/20 16:00 05/29/20 17:50 DC Levothyroxine Sodium (Synthroid) 25 mcg DAILY06 PO 05/30/20 06:00 06/02/20 05:38 Vitamin D (Vitamin D3) 50,000 unit WEEKLY PO 05/30/20 09:00 05/30/20 08:11 Buspirone HCl (Buspar) 5 mg 0900,1700 PO 05/31/20 09:00 06/02/20 05:38 Quetiapine Fumarate (SEROquel) 50 mg QHS PO 05/31/20 21:00 06/01/20 20:39 Current Medications Medications (Trade) Dose Ordered Sig/Abdifatah Route PRN Reason Start Time Stop Time Status Last Admin Dose Admin Lorazepam (Ativan) 1 mg QHS PO 06/01/20 21:00 06/03/20 21:01 06/01/20 20:40 I have reviewed the current psychotropics carefully including drug interactions. Risk benefit ratio favors no change other than as noted in my dictated progress note. Diagnosis: Problems: (1) Anxiety disorder, unspecified (2) Dementia, vascular, with depression (3) Dementia, vascular, with delusions (4) Dementia in Alzheimer's disease with depression (5) Dementia in Alzheimer's disease with delusions (6) Dementia of the Alzheimer's type with early onset with behavioral disturbance (7) Major neurocognitive disorder, due to vascular disease, with behavioral disturbance, mild NORMA AYALA MD Jun 02, 2020 07:22
--- NOTE | 2020-06-02 07:46 | PDOC ---
Exam Note: Danielito Note: This note is a late entry for 06/01/2020 covers elements not covered in my initial note. Subjective: The patient was seen face to face in the evening of 06/01/2020 with Kate SWENSON. Discussed with nursing staff, reviewed the chart. The patient slept 2-1/5 hours previous night. He has been sleeping off and on during the day. He was quite restless previous night. He slept in, in the morning. The patients [place] has been removed. He was found to have plastic material from the kitchen the back of his throat. We will monitor him for constant observation. He gets a little aggressive at times, grabbed the pillow out of the hand of nursing staff. Review of Systems: Ambulation impaired in Broda chair. No CV, , pulmonary, eye, ENT system symptoms on review. Mental Status Exam: The patient is oriented to himself. Insight and judgment, recent and remote memory, attention and concentration, fund of knowledge is poor consistent with his diagnosis. Laboratory Data: Reviewed. Impression: Major neurocognitive disorder Alzheimer vascular with delusion, depression, behavioral disturbance. Anxiety disorder unspecified. Impulse control disorder unspecified. Plan: Continue current psychotropics. Assessment: Vital Signs/I&O: Vital Signs Date Time Temp Pulse Resp B/P (MAP) Pulse Ox O2 Delivery O2 Flow Rate FiO2 06/01/20 15:59 98.8 75 18 96 05/30/20 06:25 Room Air I & O 06/01/20 06/01/20 06/02/20 15:00 23:00 07:00 Intake Total 240 ml 0 ml Balance 240 ml 0 ml Current Medications: Meds: Current Medications Medications (Trade) Dose Ordered Sig/Abdifatah Route PRN Reason Start Time Stop Time Status Last Admin Dose Admin Acetaminophen (Tylenol) 500 mg PRN Q6HRS PRN PO pain or fever 05/28/20 12:00 Aspirin (Aspirin Chewable) 81 mg DAILY PO 05/29/20 09:00 06/02/20 05:39 Bisacodyl (Dulcolax Tab) 5 mg PRN DAILY PRN PO 2ND CHOICE CONSTIPATION 05/28/20 12:00 Calcium Carbonate/ Glycine (Tums) 500 mg BID PO 05/28/20 21:00 06/02/20 05:38 Lorazepam (Ativan) 2 mg QHS PO 05/28/20 21:00 05/28/20 22:01 DC 05/28/20 20:37 Al Hydroxide/Mg Hydroxide (Mylanta Plus Xs) 15 ml PRN AFTMEALHC PRN PO DYSPEPSIA 05/28/20 12:00 UNV Memantine (Namenda) 10 mg BID PO 05/28/20 21:00 05/28/20 21:57 DC Olanzapine (ZyPREXA ZYDIS) 2.5 mg PRN Q2HRS PRN PO PSYCHOSIS 05/28/20 12:00 05/28/20 21:57 DC Quetiapine Fumarate (SEROquel) 25 mg BID92 PO 05/28/20 14:00 06/02/20 05:38 Quetiapine Fumarate (SEROquel) 50 mg BID92 PO 05/28/20 14:00 05/31/20 13:24 DC 05/31/20 08:28 Quetiapine Fumarate (SEROquel) 100 mg QHS PO 05/28/20 21:00 05/31/20 13:24 DC 05/30/20 21:50 Sertraline HCl (Zoloft) 100 mg DAILY PO 05/29/20 09:00 06/02/20 05:39 Tizanidine HCl (Zanaflex) 4 mg PRN Q8HRS PRN PO MUSCLE SPASMS 05/28/20 12:00 06/02/20 03:23 Trazodone HCl (Desyrel) 100 mg PRN QHS PRN PO INSOMNIA, MAY REPEAT X1 05/28/20 12:00 06/01/20 01:51 Atorvastatin Calcium (Lipitor) 40 mg QHS PO 05/28/20 21:00 06/01/20 20:40 Magnesium Hydroxide (Milk Of Magnesia) 2,400 mg PRN QHS PRN PO 1ST CHOICE CONSTIPATION 05/28/20 12:45 Multi-Ingredient Ointment (Analgesic [place]) 1 wendy PRN QID PRN TP MUSCLE PAIN 05/28/20 12:45 Al Hydroxide/Mg Hydroxide (Mylanta Plus Xs) 15 ml PRN AFTMEALHC PRN PO DYSPEPSIA 05/28/20 12:30 Olanzapine (ZyPREXA ZYDIS) 5 mg PRN Q2HRS PRN PO PSYCHOSIS 05/28/20 22:00 06/02/20 03:23 Divalproex Sodium (Depakote Sprinkles) 125 mg TID@0900,1300,1700 PO 05/29/20 09:00 05/29/20 18:06 DC Lorazepam (Ativan) 1.5 mg QHS PO 05/29/20 21:00 05/31/20 21:01 DC 05/30/20 21:50 Lorazepam (Ativan) 1 mg QHS PO 06/01/20 21:00 06/03/20 21:01 06/01/20 20:40 Lorazepam (Ativan) 0.5 mg QHS PO 06/04/20 21:00 06/06/20 21:01 Vitamin D (Vitamin D3) 50,000 unit WEEKLY PO 05/29/20 16:00 05/29/20 17:50 DC Levothyroxine Sodium (Synthroid) 25 mcg DAILY06 PO 05/30/20 06:00 06/02/20 05:38 Vitamin D (Vitamin D3) 50,000 unit WEEKLY PO 05/30/20 09:00 05/30/20 08:11 Buspirone HCl (Buspar) 5 mg 0900,1700 PO 05/31/20 09:00 06/02/20 05:38 Quetiapine Fumarate (SEROquel) 50 mg QHS PO 05/31/20 21:00 06/01/20 20:39 Current Medications Medications (Trade) Dose Ordered Sig/Abdifatah Route PRN Reason Start Time Stop Time Status Last Admin Dose Admin Lorazepam (Ativan) 1 mg QHS PO 06/01/20 21:00 06/03/20 21:01 06/01/20 20:40 I have reviewed the current psychotropics carefully including drug interactions. Risk benefit ratio favors no change other than as noted in my dictated progress note. Diagnosis: Problems: (1) Anxiety disorder, unspecified (2) Dementia, vascular, with depression (3) Dementia, vascular, with delusions (4) Dementia in Alzheimer's disease with depression (5) Dementia in Alzheimer's disease with delusions (6) Dementia of the Alzheimer's type with early onset with behavioral disturbance (7) Major neurocognitive disorder, due to vascular disease, with behavioral disturbance, mild JAMIE,NORMA Hein MD Jun 02, 2020 07:46
[2020-06-02 15:56] VITALS: BP 131/83
[2020-06-02] MEDS: ATORVASTATIN CALCIUM 20 MG TABLET PO SCH (21:00)
--- NOTE | 2020-06-02 21:04 | PDOC ---
Exam Note: Danielito Note: Please also refer to the separate dictated note~for this date of service dictated separately.~Patient seen individually. Discussed the patient with Nursing staff reviewed the chart.~Reviewed interim history and current functioning. Reviewed vital signs,~Labs/ Radiology~and current medications noted below. Continue current treatment with the changes noted in the dictated addendum note Assessment: Vital Signs/I&O: Vital Signs Date Time Temp Pulse Resp B/P (MAP) Pulse Ox O2 Delivery O2 Flow Rate FiO2 06/02/20 15:56 98.1 70 16 131/83 (99) 96 05/30/20 06:25 Room Air I & O 06/01/20 06/01/20 06/02/20 15:00 23:00 07:00 Intake Total 240 ml 0 ml Balance 240 ml 0 ml Current Medications: Meds: Current Medications Medications (Trade) Dose Ordered Sig/Abdifatah Route PRN Reason Start Time Stop Time Status Last Admin Dose Admin Acetaminophen (Tylenol) 500 mg PRN Q6HRS PRN PO pain or fever 05/28/20 12:00 Aspirin (Aspirin Chewable) 81 mg DAILY PO 05/29/20 09:00 06/02/20 05:39 Bisacodyl (Dulcolax Tab) 5 mg PRN DAILY PRN PO 2ND CHOICE CONSTIPATION 05/28/20 12:00 Calcium Carbonate/ Glycine (Tums) 500 mg BID PO 05/28/20 21:00 06/02/20 05:38 Lorazepam (Ativan) 2 mg QHS PO 05/28/20 21:00 05/28/20 22:01 DC 05/28/20 20:37 Al Hydroxide/Mg Hydroxide (Mylanta Plus Xs) 15 ml PRN AFTMEALHC PRN PO DYSPEPSIA 05/28/20 12:00 UNV Memantine (Namenda) 10 mg BID PO 05/28/20 21:00 05/28/20 21:57 DC Olanzapine (ZyPREXA ZYDIS) 2.5 mg PRN Q2HRS PRN PO PSYCHOSIS 05/28/20 12:00 05/28/20 21:57 DC Quetiapine Fumarate (SEROquel) 25 mg BID92 PO 05/28/20 14:00 06/02/20 05:38 Quetiapine Fumarate (SEROquel) 50 mg BID92 PO 05/28/20 14:00 05/31/20 13:24 DC 05/31/20 08:28 Quetiapine Fumarate (SEROquel) 100 mg QHS PO 05/28/20 21:00 05/31/20 13:24 DC 05/30/20 21:50 Sertraline HCl (Zoloft) 100 mg DAILY PO 05/29/20 09:00 06/02/20 05:39 Tizanidine HCl (Zanaflex) 4 mg PRN Q8HRS PRN PO MUSCLE SPASMS 05/28/20 12:00 06/02/20 03:23 Trazodone HCl (Desyrel) 100 mg PRN QHS PRN PO INSOMNIA, MAY REPEAT X1 05/28/20 12:00 06/01/20 01:51 Atorvastatin Calcium (Lipitor) 40 mg QHS PO 05/28/20 21:00 06/01/20 20:40 Magnesium Hydroxide (Milk Of Magnesia) 2,400 mg PRN QHS PRN PO 1ST CHOICE CONSTIPATION 05/28/20 12:45 Multi-Ingredient Ointment (Analgesic [place]) 1 wendy PRN QID PRN TP MUSCLE PAIN 05/28/20 12:45 Al Hydroxide/Mg Hydroxide (Mylanta Plus Xs) 15 ml PRN AFTMEALHC PRN PO DYSPEPSIA 05/28/20 12:30 Olanzapine (ZyPREXA ZYDIS) 5 mg PRN Q2HRS PRN PO PSYCHOSIS 05/28/20 22:00 06/02/20 03:23 Divalproex Sodium (Depakote Sprinkles) 125 mg TID@0900,1300,1700 PO 05/29/20 09:00 05/29/20 18:06 DC Lorazepam (Ativan) 1.5 mg QHS PO 05/29/20 21:00 05/31/20 21:01 DC 05/30/20 21:50 Lorazepam (Ativan) 1 mg QHS PO 06/01/20 21:00 06/03/20 21:01 06/01/20 20:40 Lorazepam (Ativan) 0.5 mg QHS PO 06/04/20 21:00 06/06/20 21:01 Vitamin D (Vitamin D3) 50,000 unit WEEKLY PO 05/29/20 16:00 05/29/20 17:50 DC Levothyroxine Sodium (Synthroid) 25 mcg DAILY06 PO 05/30/20 06:00 06/02/20 05:38 Vitamin D (Vitamin D3) 50,000 unit WEEKLY PO 05/30/20 09:00 05/30/20 08:11 Buspirone HCl (Buspar) 5 mg 0900,1700 PO 05/31/20 09:00 06/02/20 05:38 Quetiapine Fumarate (SEROquel) 50 mg QHS PO 05/31/20 21:00 06/01/20 20:39 I have reviewed the current psychotropics carefully including drug interactions. Risk benefit ratio favors no change other than as noted in my dictated progress note. Diagnosis: Problems: (1) Anxiety disorder, unspecified (2) Dementia, vascular, with depression (3) Dementia, vascular, with delusions (4) Dementia in Alzheimer's disease with depression (5) Dementia in Alzheimer's disease with delusions (6) Dementia of the Alzheimer's type with early onset with behavioral disturbance (7) Major neurocognitive disorder, due to vascular disease, with behavioral disturbance, mild NORMA AYALA MD Jun 02, 2020 21:04
[2020-06-02] MEDS: LORazepam 1 MG TABLET PO SCH (22:42)
[2020-06-02] MEDS: QUEtiapine 50 MG TABLET. PO SCH (22:42)
--- NOTE | 2020-06-02 23:54 | NUR ---
Pt located in his bed this evening sleeping soundly. HS medications held until later in the night. Pt woke up undressing and taking off his brief. HS medications administered at that time in one bite of pudding. Pt combative with ADLs requiring staff x4. Onesie placed on pt. Pt currently sleeping in bed.
[2020-06-03 06:04] VITALS: BP 165/83
--- NOTE | 2020-06-03 08:28 | PDOC ---
Exam Note: Danielito Note: This note is a late entry for 06/02/2020 covers elements not covered in my initial note. Subjective: The patient was seen on telehealth rounds in the evening of 06/02/2020 with Yosi SWENSON. Discussed with nursing staff, reviewed the chart. The patient slept 2-3/4 hours previous night. He remains confused, somewhat sedated. Seroquel was held. He is combative with cares. Review of Systems: No CV, , pulmonary, eye, ENT system symptoms on review. Reliability poor. Mental Status Exam: The patient is oriented to himself. Insight and judgment, recent and remote memory, attention and concentration, fund of knowledge is poor consistent with his diagnosis. Laboratory Data: Reviewed. Impression: Bipolar 1 disorder mixed with psychotic features. OCD. Anxiety disorder unspecified. Impulse control disorder unspecified. Plan: No change from initial note. Assessment: Vital Signs/I&O: Vital Signs Date Time Temp Pulse Resp B/P (MAP) Pulse Ox O2 Delivery O2 Flow Rate FiO2 06/03/20 06:04 98.0 113 22 165/83 (110) 06/02/20 15:56 96 05/30/20 06:25 Room Air I & O 06/02/20 06/02/20 06/03/20 15:00 23:00 07:00 Intake Total 0 ml 240 ml Balance 0 ml 240 ml Current Medications: Meds: Current Medications Medications (Trade) Dose Ordered Sig/Abdifatah Route PRN Reason Start Time Stop Time Status Last Admin Dose Admin Acetaminophen (Tylenol) 500 mg PRN Q6HRS PRN PO pain or fever 05/28/20 12:00 Aspirin (Aspirin Chewable) 81 mg DAILY PO 05/29/20 09:00 06/02/20 05:39 Bisacodyl (Dulcolax Tab) 5 mg PRN DAILY PRN PO 2ND CHOICE CONSTIPATION 05/28/20 12:00 Calcium Carbonate/ Glycine (Tums) 500 mg BID PO 05/28/20 21:00 06/02/20 05:38 Lorazepam (Ativan) 2 mg QHS PO 05/28/20 21:00 05/28/20 22:01 DC 05/28/20 20:37 Al Hydroxide/Mg Hydroxide (Mylanta Plus Xs) 15 ml PRN AFTMEALHC PRN PO DYSPEPSIA 05/28/20 12:00 UNV Memantine (Namenda) 10 mg BID PO 05/28/20 21:00 05/28/20 21:57 DC Olanzapine (ZyPREXA ZYDIS) 2.5 mg PRN Q2HRS PRN PO PSYCHOSIS 05/28/20 12:00 05/28/20 21:57 DC Quetiapine Fumarate (SEROquel) 25 mg BID92 PO 05/28/20 14:00 06/02/20 05:38 Quetiapine Fumarate (SEROquel) 50 mg BID92 PO 05/28/20 14:00 05/31/20 13:24 DC 05/31/20 08:28 Quetiapine Fumarate (SEROquel) 100 mg QHS PO 05/28/20 21:00 05/31/20 13:24 DC 05/30/20 21:50 Sertraline HCl (Zoloft) 100 mg DAILY PO 05/29/20 09:00 06/02/20 05:39 Tizanidine HCl (Zanaflex) 4 mg PRN Q8HRS PRN PO MUSCLE SPASMS 05/28/20 12:00 06/02/20 03:23 Trazodone HCl (Desyrel) 100 mg PRN QHS PRN PO INSOMNIA, MAY REPEAT X1 05/28/20 12:00 06/01/20 01:51 Atorvastatin Calcium (Lipitor) 40 mg QHS PO 05/28/20 21:00 06/01/20 20:40 Magnesium Hydroxide (Milk Of Magnesia) 2,400 mg PRN QHS PRN PO 1ST CHOICE CONSTIPATION 05/28/20 12:45 Multi-Ingredient Ointment (Analgesic [place]) 1 wendy PRN QID PRN TP MUSCLE PAIN 05/28/20 12:45 Al Hydroxide/Mg Hydroxide (Mylanta Plus Xs) 15 ml PRN AFTMEALHC PRN PO DYSPEPSIA 05/28/20 12:30 Olanzapine (ZyPREXA ZYDIS) 5 mg PRN Q2HRS PRN PO PSYCHOSIS 05/28/20 22:00 06/02/20 03:23 Divalproex Sodium (Depakote Sprinkles) 125 mg TID@0900,1300,1700 PO 05/29/20 09:00 05/29/20 18:06 DC Lorazepam (Ativan) 1.5 mg QHS PO 05/29/20 21:00 05/31/20 21:01 DC 05/30/20 21:50 Lorazepam (Ativan) 1 mg QHS PO 06/01/20 21:00 06/03/20 21:01 06/02/20 22:42 Lorazepam (Ativan) 0.5 mg QHS PO 06/04/20 21:00 06/06/20 21:01 Vitamin D (Vitamin D3) 50,000 unit WEEKLY PO 05/29/20 16:00 05/29/20 17:50 DC Levothyroxine Sodium (Synthroid) 25 mcg DAILY06 PO 05/30/20 06:00 06/02/20 05:38 Vitamin D (Vitamin D3) 50,000 unit WEEKLY PO 05/30/20 09:00 05/30/20 08:11 Buspirone HCl (Buspar) 5 mg 0900,1700 PO 05/31/20 09:00 06/02/20 05:38 Quetiapine Fumarate (SEROquel) 50 mg QHS PO 05/31/20 21:00 06/02/20 22:42 I have reviewed the current psychotropics carefully including drug interactions. Risk benefit ratio favors no change other than as noted in my dictated progress note. Diagnosis: Problems: (1) Anxiety disorder, unspecified (2) Dementia, vascular, with depression (3) Dementia, vascular, with delusions (4) Dementia in Alzheimer's disease with depression (5) Dementia in Alzheimer's disease with delusions (6) Dementia of the Alzheimer's type with early onset with behavioral disturbance (7) Major neurocognitive disorder, due to vascular disease, with behavioral disturbance, mild NORMA AYALA MD Jun 03, 2020 08:27
[2020-06-03] MEDS: LEVOTHYROXINE 25 MCG TABLET. PO SCH (08:37)
[2020-06-03] MEDS: QUEtiapine 25 MG TABLET. PO SCH ×2 (08:37→14:00)
[2020-06-03] MEDS: busPIRone 5 MG TABLET. PO SCH ×2 (08:37→17:07)
[2020-06-03] MEDS: ASPIRIN CHEWABLE 81 MG TABLET. PO SCH (08:37)
[2020-06-03] MEDS: CALCIUM CARBONATE 500 MG TAB.CHEW PO SCH ×2 (08:38→21:00)
[2020-06-03] MEDS: SERTRALINE 100 MG TABLET. PO SCH (08:38)
--- NOTE | 2020-06-03 13:08 | NUR ---
Nursing Note Pt in bed in room confused, speaks in a word salad. Compliant with meds and assessment. Will respond to visual cues like winking, will wink back, but seems to not understand words or commands.
[2020-06-03 16:07] VITALS: BP 119/74
--- NOTE | 2020-06-03 16:36 | NUR ---
1400 dose of seroquel held d/t pt being in a deep state of sleep
[2020-06-03] MEDS: QUEtiapine 50 MG TABLET. PO SCH (20:56)
[2020-06-03] MEDS: LORazepam 1 MG TABLET PO SCH (20:56)
[2020-06-03] MEDS: ATORVASTATIN CALCIUM 20 MG TABLET PO SCH (20:56)
--- NOTE | 2020-06-03 21:04 | PDOC ---
Exam Note: Danielito Note: Please also refer to the separate dictated note~for this date of service dictated separately.~Patient seen individually. Discussed the patient with Nursing staff reviewed the chart.~Reviewed interim history and current functioning. Reviewed vital signs,~Labs/ Radiology~and current medications noted below. Continue current treatment with the changes noted in the dictated addendum note Assessment: Vital Signs/I&O: Vital Signs Date Time Temp Pulse Resp B/P (MAP) Pulse Ox O2 Delivery O2 Flow Rate FiO2 06/03/20 16:07 97.4 86 16 119/74 (89) 97 Room Air I & O 06/02/20 06/02/20 06/03/20 14:59 22:59 06:59 Intake Total 0 ml 240 ml Balance 0 ml 240 ml Current Medications: Meds: Current Medications Medications (Trade) Dose Ordered Sig/Abdifatah Route PRN Reason Start Time Stop Time Status Last Admin Dose Admin Acetaminophen (Tylenol) 500 mg PRN Q6HRS PRN PO pain or fever 05/28/20 12:00 Aspirin (Aspirin Chewable) 81 mg DAILY PO 05/29/20 09:00 06/03/20 08:37 Bisacodyl (Dulcolax Tab) 5 mg PRN DAILY PRN PO 2ND CHOICE CONSTIPATION 05/28/20 12:00 Calcium Carbonate/ Glycine (Tums) 500 mg BID PO 05/28/20 21:00 06/03/20 08:38 Lorazepam (Ativan) 2 mg QHS PO 05/28/20 21:00 05/28/20 22:01 DC 05/28/20 20:37 Al Hydroxide/Mg Hydroxide (Mylanta Plus Xs) 15 ml PRN AFTMEALHC PRN PO DYSPEPSIA 05/28/20 12:00 UNV Memantine (Namenda) 10 mg BID PO 05/28/20 21:00 05/28/20 21:57 DC Olanzapine (ZyPREXA ZYDIS) 2.5 mg PRN Q2HRS PRN PO PSYCHOSIS 05/28/20 12:00 05/28/20 21:57 DC Quetiapine Fumarate (SEROquel) 25 mg BID92 PO 05/28/20 14:00 06/03/20 16:18 DC 06/03/20 08:37 Quetiapine Fumarate (SEROquel) 50 mg BID92 PO 05/28/20 14:00 05/31/20 13:24 DC 05/31/20 08:28 Quetiapine Fumarate (SEROquel) 100 mg QHS PO 05/28/20 21:00 05/31/20 13:24 DC 05/30/20 21:50 Sertraline HCl (Zoloft) 100 mg DAILY PO 05/29/20 09:00 06/03/20 08:38 Tizanidine HCl (Zanaflex) 4 mg PRN Q8HRS PRN PO MUSCLE SPASMS 05/28/20 12:00 06/02/20 03:23 Trazodone HCl (Desyrel) 100 mg PRN QHS PRN PO INSOMNIA, MAY REPEAT X1 05/28/20 12:00 06/01/20 01:51 Atorvastatin Calcium (Lipitor) 40 mg QHS PO 05/28/20 21:00 06/01/20 20:40 Magnesium Hydroxide (Milk Of Magnesia) 2,400 mg PRN QHS PRN PO 1ST CHOICE CONSTIPATION 05/28/20 12:45 Multi-Ingredient Ointment (Analgesic [place]) 1 wendy PRN QID PRN TP MUSCLE PAIN 05/28/20 12:45 Al Hydroxide/Mg Hydroxide (Mylanta Plus Xs) 15 ml PRN AFTMEALHC PRN PO DYSPEPSIA 05/28/20 12:30 Olanzapine (ZyPREXA ZYDIS) 5 mg PRN Q2HRS PRN PO PSYCHOSIS 05/28/20 22:00 06/02/20 03:23 Divalproex Sodium (Depakote Sprinkles) 125 mg TID@0900,1300,1700 PO 05/29/20 09:00 05/29/20 18:06 DC Lorazepam (Ativan) 1.5 mg QHS PO 05/29/20 21:00 05/31/20 21:01 DC 05/30/20 21:50 Lorazepam (Ativan) 1 mg QHS PO 06/01/20 21:00 06/03/20 21:01 DC 06/03/20 20:56 Lorazepam (Ativan) 0.5 mg QHS PO 06/04/20 21:00 06/06/20 21:01 Vitamin D (Vitamin D3) 50,000 unit WEEKLY PO 05/29/20 16:00 05/29/20 17:50 DC Levothyroxine Sodium (Synthroid) 25 mcg DAILY06 PO 05/30/20 06:00 06/03/20 08:37 Vitamin D (Vitamin D3) 50,000 unit WEEKLY PO 05/30/20 09:00 05/30/20 08:11 Buspirone HCl (Buspar) 5 mg 0900,1700 PO 05/31/20 09:00 06/03/20 17:07 Quetiapine Fumarate (SEROquel) 50 mg QHS PO 05/31/20 21:00 06/03/20 20:56 Quetiapine Fumarate (SEROquel) 25 mg DAILY PO 06/04/20 09:00 I have reviewed the current psychotropics carefully including drug interactions. Risk benefit ratio favors no change other than as noted in my dictated progress note. Diagnosis: Problems: (1) Anxiety disorder, unspecified (2) Dementia, vascular, with depression (3) Dementia, vascular, with delusions (4) Dementia in Alzheimer's disease with depression (5) Dementia in Alzheimer's disease with delusions (6) Dementia of the Alzheimer's type with early onset with behavioral disturbance (7) Major neurocognitive disorder, due to vascular disease, with behavioral disturbance, mild NORMA AYALA MD Jun 03, 2020 21:04
--- NOTE | 2020-06-03 23:56 | NUR ---
Pt asleep in bed at shift change. Pt compliant with crushed HS medications once he woke up later in the evening. Continues to be highly agitated with ADL cares requiring 4 staff members.
[2020-06-04] MEDS: LEVOTHYROXINE 25 MCG TABLET. PO SCH (05:00)
[2020-06-04 06:31] VITALS: BP 142/75
[2020-06-04] MEDS ORDERED: QUEtiapine 25 MG TABLET. PO SCH (09:00)
[2020-06-04] MEDS: busPIRone 5 MG TABLET. PO SCH ×2 (09:05→16:31)
[2020-06-04] MEDS: ASPIRIN CHEWABLE 81 MG TABLET. PO SCH (09:05)
[2020-06-04] MEDS: CALCIUM CARBONATE 500 MG TAB.CHEW PO SCH ×2 (09:05→20:44)
[2020-06-04] MEDS: SERTRALINE 100 MG TABLET. PO SCH (09:05)
--- NOTE | 2020-06-04 12:18 | NUR ---
PATIENT IS IN A BED ASLEEP THIS AM BEFORE BREAKFAST, LATER THIS AM AFTER BREAKFAST THIS RN APPROACHED PATIENT TO ASSESS, PATIENT WAS AWAKE AND RESTLESS, DID NOT COOPERATE WITH ASSESSMENT, PUSHING AWAY WITH HIS ARMS, YELLING, PATIENT TOOK HIS MEDS CRUSHED IN A PUDDING. PATIENT IS CURRENTLY RESTING IN A BED,[facility].
[2020-06-04 15:18] VITALS: BP 154/76
[2020-06-04] MEDS: QUEtiapine 50 MG TABLET. PO SCH (20:44)
[2020-06-04] MEDS: ATORVASTATIN CALCIUM 20 MG TABLET PO SCH (20:44)
[2020-06-04] MEDS: traZODone 100 MG TABLET. PO PRN (20:46)
[2020-06-04] MEDS: LORazepam 0.5 MG TABLET PO SCH (20:46)
--- NOTE | 2020-06-04 21:11 | PDOC ---
Exam Note: Danielito Note: This note is a late entry for 06/03/2020 covers elements not covered in my initial note. Subjective: The patient was seen on telehealth rounds in the evening of 06/03/2020 with Kate SWENSON. Discussed with nursing staff, reviewed the chart. The patient slept 7-1/4 hours previous night. He remains confused. Speech is word silent, at times responds to visual cues. No p.r.n.s are needed to be given but he was somewhat sedated in the afternoon, 1400 hours Seroquel was held as has been done for the past several day and he will stop it. Review of Systems: No CV, , pulmonary, eye, ENT system symptoms on review. Reliability poor. Mental Status Exam: The patient is oriented to himself. Insight and judgment, recent and remote memory, attention and concentration, fund of knowledge is poor consistent with his diagnosis. Laboratory Data: Reviewed. Impression: Bipolar 1 disorder mixed with psychotic features. OCD. Anxiety disorder unspecified. Impulse control disorder unspecified. Plan: No change from initial note. Stop the Seroquel at 1400 hours as noted above. Adjust further as clinically indicated. Assessment: Vital Signs/I&O: Vital Signs Date Time Temp Pulse Resp B/P (MAP) Pulse Ox O2 Delivery O2 Flow Rate FiO2 06/04/20 15:18 97.6 88 17 154/76 (102) 95 06/03/20 16:07 Room Air I & O 06/03/20 06/03/20 06/04/20 15:00 23:00 07:00 Intake Total 120 ml 360 ml Balance 120 ml 360 ml Current Medications: Meds: Current Medications Medications (Trade) Dose Ordered Sig/Abdifatah Route PRN Reason Start Time Stop Time Status Last Admin Dose Admin Acetaminophen (Tylenol) 500 mg PRN Q6HRS PRN PO pain or fever 05/28/20 12:00 Aspirin (Aspirin Chewable) 81 mg DAILY PO 05/29/20 09:00 06/04/20 09:05 Bisacodyl (Dulcolax Tab) 5 mg PRN DAILY PRN PO 2ND CHOICE CONSTIPATION 05/28/20 12:00 Calcium Carbonate/ Glycine (Tums) 500 mg BID PO 05/28/20 21:00 06/04/20 20:44 Lorazepam (Ativan) 2 mg QHS PO 05/28/20 21:00 05/28/20 22:01 DC 05/28/20 20:37 Al Hydroxide/Mg Hydroxide (Mylanta Plus Xs) 15 ml PRN AFTMEALHC PRN PO DYSPEPSIA 05/28/20 12:00 UNV Memantine (Namenda) 10 mg BID PO 05/28/20 21:00 05/28/20 21:57 DC Olanzapine (ZyPREXA ZYDIS) 2.5 mg PRN Q2HRS PRN PO PSYCHOSIS 05/28/20 12:00 05/28/20 21:57 DC Quetiapine Fumarate (SEROquel) 25 mg BID92 PO 05/28/20 14:00 06/03/20 16:18 DC 06/03/20 08:37 Quetiapine Fumarate (SEROquel) 50 mg BID92 PO 05/28/20 14:00 05/31/20 13:24 DC 05/31/20 08:28 Quetiapine Fumarate (SEROquel) 100 mg QHS PO 05/28/20 21:00 05/31/20 13:24 DC 05/30/20 21:50 Sertraline HCl (Zoloft) 100 mg DAILY PO 05/29/20 09:00 06/04/20 09:05 Tizanidine HCl (Zanaflex) 4 mg PRN Q8HRS PRN PO MUSCLE SPASMS 05/28/20 12:00 06/02/20 03:23 Trazodone HCl (Desyrel) 100 mg PRN QHS PRN PO INSOMNIA, MAY REPEAT X1 05/28/20 12:00 06/04/20 20:46 Atorvastatin Calcium (Lipitor) 40 mg QHS PO 05/28/20 21:00 06/04/20 20:44 Magnesium Hydroxide (Milk Of Magnesia) 2,400 mg PRN QHS PRN PO 1ST CHOICE CONSTIPATION 05/28/20 12:45 Multi-Ingredient Ointment (Analgesic [place]) 1 wendy PRN QID PRN TP MUSCLE PAIN 05/28/20 12:45 Al Hydroxide/Mg Hydroxide (Mylanta Plus Xs) 15 ml PRN AFTMEALHC PRN PO DYSPEPSIA 05/28/20 12:30 Olanzapine (ZyPREXA ZYDIS) 5 mg PRN Q2HRS PRN PO PSYCHOSIS 05/28/20 22:00 06/04/20 11:05 Divalproex Sodium (Depakote Sprinkles) 125 mg TID@0900,1300,1700 PO 05/29/20 09:00 05/29/20 18:06 DC Lorazepam (Ativan) 1.5 mg QHS PO 05/29/20 21:00 05/31/20 21:01 DC 05/30/20 21:50 Lorazepam (Ativan) 1 mg QHS PO 06/01/20 21:00 06/03/20 21:01 DC 06/03/20 20:56 Lorazepam (Ativan) 0.5 mg QHS PO 06/04/20 21:00 06/06/20 21:01 06/04/20 20:46 Vitamin D (Vitamin D3) 50,000 unit WEEKLY PO 05/29/20 16:00 05/29/20 17:50 DC Levothyroxine Sodium (Synthroid) 25 mcg DAILY06 PO 05/30/20 06:00 06/04/20 05:00 Vitamin D (Vitamin D3) 50,000 unit WEEKLY PO 05/30/20 09:00 05/30/20 08:11 Buspirone HCl (Buspar) 5 mg 0900,1700 PO 05/31/20 09:00 06/04/20 16:31 Quetiapine Fumarate (SEROquel) 50 mg QHS PO 05/31/20 21:00 06/04/20 20:44 Quetiapine Fumarate (SEROquel) 25 mg DAILY PO 06/04/20 09:00 06/04/20 17:34 DC 06/04/20 09:06 Quetiapine Fumarate (SEROquel) 12.5 mg 0900,1200,1500,1700 PO 06/05/20 09:00 Current Medications Medications (Trade) Dose Ordered Sig/Abdifatah Route PRN Reason Start Time Stop Time Status Last Admin Dose Admin Lorazepam (Ativan) 0.5 mg QHS PO 06/04/20 21:00 06/06/20 21:01 06/04/20 20:46 Quetiapine Fumarate (SEROquel) 25 mg DAILY PO 06/04/20 09:00 06/04/20 17:34 DC 06/04/20 09:06 I have reviewed the current psychotropics carefully including drug interactions. Risk benefit ratio favors no change other than as noted in my dictated progress note. Diagnosis: Problems: (1) Anxiety disorder, unspecified (2) Dementia, vascular, with depression (3) Dementia, vascular, with delusions (4) Dementia in Alzheimer's disease with depression (5) Dementia in Alzheimer's disease with delusions (6) Dementia of the Alzheimer's type with early onset with behavioral disturbance (7) Major neurocognitive disorder, due to vascular disease, with behavioral disturbance, mild NORMA AYALA MD Jun 04, 2020 21:11
--- NOTE | 2020-06-04 21:32 | PDOC ---
Exam Note: Danielito Note: Please also refer to the separate dictated note~for this date of service dictated separately.~Patient seen individually. Discussed the patient with Nursing staff reviewed the chart.~Reviewed interim history and current functioning. Reviewed vital signs,~Labs/ Radiology~and current medications noted below. Continue current treatment with the changes noted in the dictated addendum note Assessment: Vital Signs/I&O: Vital Signs Date Time Temp Pulse Resp B/P (MAP) Pulse Ox O2 Delivery O2 Flow Rate FiO2 06/04/20 15:18 97.6 88 17 154/76 (102) 95 06/03/20 16:07 Room Air I & O 06/03/20 06/03/20 06/04/20 15:00 23:00 07:00 Intake Total 120 ml 360 ml Balance 120 ml 360 ml Current Medications: Meds: Current Medications Medications (Trade) Dose Ordered Sig/Abdifatah Route PRN Reason Start Time Stop Time Status Last Admin Dose Admin Lorazepam (Ativan) 0.5 mg QHS PO 06/04/20 21:00 06/06/20 21:01 06/04/20 20:46 Quetiapine Fumarate (SEROquel) 25 mg DAILY PO 06/04/20 09:00 06/04/20 17:34 DC 06/04/20 09:06 I have reviewed the current psychotropics carefully including drug interactions. Risk benefit ratio favors no change other than as noted in my dictated progress note. Diagnosis: Problems: (1) Anxiety disorder, unspecified (2) Dementia, vascular, with depression (3) Dementia, vascular, with delusions (4) Dementia in Alzheimer's disease with depression (5) Dementia in Alzheimer's disease with delusions (6) Dementia of the Alzheimer's type with early onset with behavioral disturbance (7) Major neurocognitive disorder, due to vascular disease, with behavioral disturbance, mild NORMA AYALA MD Jun 04, 2020 21:32
--- NOTE | 2020-06-04 23:55 | NUR ---
Pt awake in bed this evening, restless and attempting to take off his clothes. Compliant with crushed medications in one bite of pudding. Pt highly agitated with ADL cares requiring 4 staff members to complete care.
[2020-06-05] MEDS: LEVOTHYROXINE 25 MCG TABLET. PO SCH (05:42)
[2020-06-05 06:20] VITALS: BP 143/83
--- NOTE | 2020-06-05 07:00 | NUR ---
Wound/Ostomy Care Wound Type/Assessment: Wound care consult for wound on coccyx. Pt has macerated area to top of buttocks with peeling skin and pale pink wound bed. Pictured, measured, assessed and redressed wound. Treatment Recommendations/Plan: Calazime applied to buttocks and coccyx as pt is incontinent, recommend to reapply BID and PRN Education provided: pt unable to retain education d/t mental status Offloading surface/device: pt is a self turn, wheel chair cushion present in room Recommended Referrals/Tests: none Discharge Recommendations for dressings: continue as above noted. WC will follow up on 06/12 for reassessment
[2020-06-05] MEDS: busPIRone 5 MG TABLET. PO SCH ×2 (08:16→17:17)
[2020-06-05] MEDS: SERTRALINE 100 MG TABLET. PO SCH (08:16)
[2020-06-05] MEDS: QUEtiapine 25 MG TABLET. PO SCH ×5 (08:17→17:00)
[2020-06-05] MEDS: CALCIUM CARBONATE 500 MG TAB.CHEW PO SCH ×3 (08:17→22:00)
[2020-06-05] MEDS: ASPIRIN CHEWABLE 81 MG TABLET. PO SCH (08:17)
--- NOTE | 2020-06-05 08:40 | PDOC ---
Exam Note: Danielito Note: This note is a late entry for 06/04/2020 covers elements not covered in my initial note. Subjective: The patient was seen face to face in the evening of 06/04/2020 with Vickie SWENSON. Discussed with nursing staff, reviewed the chart. The patient slept 8-1/4 hours previous night. He remains confused, has been calm, spending much time in bed. Other times when he has been assisted for cares, he becomes combative, restless. Review of Systems: No CV, , pulmonary, eye, ENT system symptoms on review. Mental Status Exam: The patient is oriented to himself. Insight and judgment, recent and remote memory, attention and concentration, fund of knowledge is poor consistent with his diagnosis. Laboratory Data: Reviewed. Impression: Major neurocognitive disorder Alzheimer vascular with delusion, depression, behavioral disturbance. Anxiety disorder unspecified. Impulse control disorder unspecified. Plan: No change from initial note. We will change his Seroquel dosage to 12.5 mg 9 a.m., noon, 3 p.m., 5 p.m., 50 mg h.s. Continue Zoloft. Rest of the psychotropics unchanged along with BuSpar. Consider low dose Depakote Sprinkle if agitation persist but I would like to avoid over-sedation. Adjust further as clinically indicated. Assessment: Vital Signs/I&O: Vital Signs Date Time Temp Pulse Resp B/P (MAP) Pulse Ox O2 Delivery O2 Flow Rate FiO2 06/05/20 06:20 97.1 75 20 143/83 (103) 06/04/20 15:18 95 06/03/20 16:07 Room Air I & O 06/04/20 06/04/20 06/05/20 14:59 22:59 06:59 Intake Total 100 ml 480 ml Balance 100 ml 480 ml Current Medications: Meds: Current Medications Medications (Trade) Dose Ordered Sig/Abdifatah Route PRN Reason Start Time Stop Time Status Last Admin Dose Admin Acetaminophen (Tylenol) 500 mg PRN Q6HRS PRN PO pain or fever 05/28/20 12:00 Aspirin (Aspirin Chewable) 81 mg DAILY PO 05/29/20 09:00 06/05/20 08:17 Bisacodyl (Dulcolax Tab) 5 mg PRN DAILY PRN PO 2ND CHOICE CONSTIPATION 05/28/20 12:00 Calcium Carbonate/ Glycine (Tums) 500 mg BID PO 05/28/20 21:00 06/05/20 08:17 Lorazepam (Ativan) 2 mg QHS PO 05/28/20 21:00 05/28/20 22:01 DC 05/28/20 20:37 Al Hydroxide/Mg Hydroxide (Mylanta Plus Xs) 15 ml PRN AFTMEALHC PRN PO DYSPEPSIA 05/28/20 12:00 UNV Memantine (Namenda) 10 mg BID PO 05/28/20 21:00 05/28/20 21:57 DC Olanzapine (ZyPREXA ZYDIS) 2.5 mg PRN Q2HRS PRN PO PSYCHOSIS 05/28/20 12:00 05/28/20 21:57 DC Quetiapine Fumarate (SEROquel) 25 mg BID92 PO 05/28/20 14:00 06/03/20 16:18 DC 06/03/20 08:37 Quetiapine Fumarate (SEROquel) 50 mg BID92 PO 05/28/20 14:00 05/31/20 13:24 DC 05/31/20 08:28 Quetiapine Fumarate (SEROquel) 100 mg QHS PO 05/28/20 21:00 05/31/20 13:24 DC 05/30/20 21:50 Sertraline HCl (Zoloft) 100 mg DAILY PO 05/29/20 09:00 06/05/20 08:16 Tizanidine HCl (Zanaflex) 4 mg PRN Q8HRS PRN PO MUSCLE SPASMS 05/28/20 12:00 06/02/20 03:23 Trazodone HCl (Desyrel) 100 mg PRN QHS PRN PO INSOMNIA, MAY REPEAT X1 05/28/20 12:00 06/04/20 20:46 Atorvastatin Calcium (Lipitor) 40 mg QHS PO 05/28/20 21:00 06/04/20 20:44 Magnesium Hydroxide (Milk Of Magnesia) 2,400 mg PRN QHS PRN PO 1ST CHOICE CONSTIPATION 05/28/20 12:45 Multi-Ingredient Ointment (Analgesic [place]) 1 wendy PRN QID PRN TP MUSCLE PAIN 05/28/20 12:45 Al Hydroxide/Mg Hydroxide (Mylanta Plus Xs) 15 ml PRN AFTMEALHC PRN PO DYSPEPSIA 05/28/20 12:30 Olanzapine (ZyPREXA ZYDIS) 5 mg PRN Q2HRS PRN PO PSYCHOSIS 05/28/20 22:00 06/04/20 11:05 Divalproex Sodium (Depakote Sprinkles) 125 mg TID@0900,1300,1700 PO 05/29/20 09:00 05/29/20 18:06 DC Lorazepam (Ativan) 1.5 mg QHS PO 05/29/20 21:00 05/31/20 21:01 DC 05/30/20 21:50 Lorazepam (Ativan) 1 mg QHS PO 06/01/20 21:00 06/03/20 21:01 DC 06/03/20 20:56 Lorazepam (Ativan) 0.5 mg QHS PO 06/04/20 21:00 06/06/20 21:01 06/04/20 20:46 Vitamin D (Vitamin D3) 50,000 unit WEEKLY PO 05/29/20 16:00 05/29/20 17:50 DC Levothyroxine Sodium (Synthroid) 25 mcg DAILY06 PO 05/30/20 06:00 06/05/20 05:42 Vitamin D (Vitamin D3) 50,000 unit WEEKLY PO 05/30/20 09:00 05/30/20 08:11 Buspirone HCl (Buspar) 5 mg 0900,1700 PO 05/31/20 09:00 06/05/20 08:16 Quetiapine Fumarate (SEROquel) 50 mg QHS PO 05/31/20 21:00 06/04/20 20:44 Quetiapine Fumarate (SEROquel) 25 mg DAILY PO 06/04/20 09:00 06/04/20 17:34 DC 06/04/20 09:06 Quetiapine Fumarate (SEROquel) 12.5 mg 0900,1200,1500,1700 PO 06/05/20 09:00 06/05/20 08:17 Current Medications Medications (Trade) Dose Ordered Sig/Abdifatah Route PRN Reason Start Time Stop Time Status Last Admin Dose Admin Lorazepam (Ativan) 0.5 mg QHS PO 06/04/20 21:00 06/06/20 21:01 06/04/20 20:46 Quetiapine Fumarate (SEROquel) 25 mg DAILY PO 06/04/20 09:00 06/04/20 17:34 DC 06/04/20 09:06 Quetiapine Fumarate (SEROquel) 12.5 mg 0900,1200,1500,1700 PO 06/05/20 09:00 06/05/20 08:17 I have reviewed the current psychotropics carefully including drug interactions. Risk benefit ratio favors no change other than as noted in my dictated progress note. Diagnosis: Problems: (1) Anxiety disorder, unspecified (2) Dementia, vascular, with depression (3) Dementia, vascular, with delusions (4) Dementia in Alzheimer's disease with depression (5) Dementia in Alzheimer's disease with delusions (6) Dementia of the Alzheimer's type with early onset with behavioral disturbance (7) Major neurocognitive disorder, due to vascular disease, with behavioral disturbance, mild NORMA AYALA MD Jun 05, 2020 08:40
[2020-06-05 15:51] VITALS: BP 126/84
--- NOTE | 2020-06-05 18:30 | NUR ---
Patient was alert at breakfast, feeding himself in his room; he was compliant with medications crushed in pudding. He became combative with toileting after breakfast; pulling away from staff, attempting to hit staff, grabbing at staff; then was escorted to his bed. Patient then slept throughout late morning to late afternoon; afternoon medications held. Patient was up for dinner and ate well with assistance. He was drowsy after dinner and remained in bed; restless but not trying to get up. Will continue to monitor and report to oncoming shift.
--- NOTE | 2020-06-05 20:58 | PDOC ---
Exam Note: Danielito Note: Please also refer to the separate dictated note~for this date of service dictated separately.~Patient seen individually. Discussed the patient with Nursing staff reviewed the chart.~Reviewed interim history and current functioning. Reviewed vital signs,~Labs/ Radiology~and current medications noted below. Continue current treatment with the changes noted in the dictated addendum note Assessment: Vital Signs/I&O: Vital Signs Date Time Temp Pulse Resp B/P (MAP) Pulse Ox O2 Delivery O2 Flow Rate FiO2 06/05/20 15:51 97.8 83 18 126/84 (98) 94 06/03/20 16:07 Room Air I & O 06/04/20 06/04/20 06/05/20 15:00 23:00 07:00 Intake Total 100 ml 480 ml Balance 100 ml 480 ml Current Medications: Meds: Current Medications Medications (Trade) Dose Ordered Sig/Abdifatah Route PRN Reason Start Time Stop Time Status Last Admin Dose Admin Acetaminophen (Tylenol) 500 mg PRN Q6HRS PRN PO pain or fever 05/28/20 12:00 Aspirin (Aspirin Chewable) 81 mg DAILY PO 05/29/20 09:00 06/05/20 08:17 Bisacodyl (Dulcolax Tab) 5 mg PRN DAILY PRN PO 2ND CHOICE CONSTIPATION 05/28/20 12:00 Calcium Carbonate/ Glycine (Tums) 500 mg BID PO 05/28/20 21:00 06/05/20 08:17 Lorazepam (Ativan) 2 mg QHS PO 05/28/20 21:00 05/28/20 22:01 DC 05/28/20 20:37 Al Hydroxide/Mg Hydroxide (Mylanta Plus Xs) 15 ml PRN AFTMEALHC PRN PO DYSPEPSIA 05/28/20 12:00 UNV Memantine (Namenda) 10 mg BID PO 05/28/20 21:00 05/28/20 21:57 DC Olanzapine (ZyPREXA ZYDIS) 2.5 mg PRN Q2HRS PRN PO PSYCHOSIS 05/28/20 12:00 05/28/20 21:57 DC Quetiapine Fumarate (SEROquel) 25 mg BID92 PO 05/28/20 14:00 06/03/20 16:18 DC 06/03/20 08:37 Quetiapine Fumarate (SEROquel) 50 mg BID92 PO 05/28/20 14:00 05/31/20 13:24 DC 05/31/20 08:28 Quetiapine Fumarate (SEROquel) 100 mg QHS PO 05/28/20 21:00 05/31/20 13:24 DC 05/30/20 21:50 Sertraline HCl (Zoloft) 100 mg DAILY PO 05/29/20 09:00 06/05/20 20:01 DC 06/05/20 08:16 Tizanidine HCl (Zanaflex) 4 mg PRN Q8HRS PRN PO MUSCLE SPASMS 05/28/20 12:00 06/02/20 03:23 Trazodone HCl (Desyrel) 100 mg PRN QHS PRN PO INSOMNIA, MAY REPEAT X1 05/28/20 12:00 06/04/20 20:46 Atorvastatin Calcium (Lipitor) 40 mg QHS PO 05/28/20 21:00 06/04/20 20:44 Magnesium Hydroxide (Milk Of Magnesia) 2,400 mg PRN QHS PRN PO 1ST CHOICE CONSTIPATION 05/28/20 12:45 Multi-Ingredient Ointment (Analgesic [place]) 1 wendy PRN QID PRN TP MUSCLE PAIN 05/28/20 12:45 Al Hydroxide/Mg Hydroxide (Mylanta Plus Xs) 15 ml PRN AFTMEALHC PRN PO DYSPEPSIA 05/28/20 12:30 Olanzapine (ZyPREXA ZYDIS) 5 mg PRN Q2HRS PRN PO PSYCHOSIS 05/28/20 22:00 06/04/20 11:05 Divalproex Sodium (Depakote Sprinkles) 125 mg TID@0900,1300,1700 PO 05/29/20 09:00 05/29/20 18:06 DC Lorazepam (Ativan) 1.5 mg QHS PO 05/29/20 21:00 05/31/20 21:01 DC 05/30/20 21:50 Lorazepam (Ativan) 1 mg QHS PO 06/01/20 21:00 06/03/20 21:01 DC 06/03/20 20:56 Lorazepam (Ativan) 0.5 mg QHS PO 06/04/20 21:00 06/06/20 21:01 06/04/20 20:46 Vitamin D (Vitamin D3) 50,000 unit WEEKLY PO 05/29/20 16:00 05/29/20 17:50 DC Levothyroxine Sodium (Synthroid) 25 mcg DAILY06 PO 05/30/20 06:00 06/05/20 05:42 Vitamin D (Vitamin D3) 50,000 unit WEEKLY PO 05/30/20 09:00 05/30/20 08:11 Buspirone HCl (Buspar) 5 mg 0900,1700 PO 05/31/20 09:00 06/05/20 17:17 Quetiapine Fumarate (SEROquel) 50 mg QHS PO 05/31/20 21:00 06/04/20 20:44 Quetiapine Fumarate (SEROquel) 25 mg DAILY PO 06/04/20 09:00 06/04/20 17:34 DC 06/04/20 09:06 Quetiapine Fumarate (SEROquel) 12.5 mg 0900,1200,1500,1700 PO 06/05/20 09:00 06/05/20 08:17 Bupropion HCl (Wellbutrin) 75 mg 0900,1200 PO 06/06/20 09:00 Current Medications Medications (Trade) Dose Ordered Sig/Abdifatah Route PRN Reason Start Time Stop Time Status Last Admin Dose Admin Lorazepam (Ativan) 0.5 mg QHS PO 06/04/20 21:00 06/06/20 21:01 06/04/20 20:46 Quetiapine Fumarate (SEROquel) 12.5 mg 0900,1200,1500,1700 PO 06/05/20 09:00 06/05/20 08:17 I have reviewed the current psychotropics carefully including drug interactions. Risk benefit ratio favors no change other than as noted in my dictated progress note. Diagnosis: Problems: (1) Anxiety disorder, unspecified (2) Dementia, vascular, with depression (3) Dementia, vascular, with delusions (4) Dementia in Alzheimer's disease with depression (5) Dementia in Alzheimer's disease with delusions (6) Dementia of the Alzheimer's type with early onset with behavioral disturbance (7) Major neurocognitive disorder, due to vascular disease, with behavioral disturbance, mild JAMIENROMA WARD MD Jun 05, 2020 20:58
[2020-06-05] MEDS: ATORVASTATIN CALCIUM 20 MG TABLET PO SCH (21:27)
[2020-06-05] MEDS: QUEtiapine 50 MG TABLET. PO SCH (21:27)
[2020-06-05] MEDS: LORazepam 0.5 MG TABLET PO SCH (21:29)
--- NOTE | 2020-06-05 23:45 | NUR ---
Patient was laying in bed and attempted to swat at nurse. Medications offered crushed in pudding, patient knocked med cup out of nurses hand. Patient appears to be having visual hallucinations (he is reaching for unseen things) but is unable to communicate this to nurse. Patient is not answering any orientation questions when asked. Patient is laying in bed, appears restless, sleeping at times.
[2020-06-06] MEDS: LEVOTHYROXINE 25 MCG TABLET. PO SCH (05:48)
[2020-06-06 05:58] VITALS: BP 158/95
[2020-06-06] MEDS: ASPIRIN CHEWABLE 81 MG TABLET. PO SCH (08:05)
[2020-06-06] MEDS: busPIRone 5 MG TABLET. PO SCH ×2 (08:05→17:40)
[2020-06-06] MEDS: CALCIUM CARBONATE 500 MG TAB.CHEW PO SCH ×2 (08:05→21:18)
[2020-06-06] MEDS: buPROPion 75 MG TABLET PO SCH ×2 (08:05→12:42)
[2020-06-06] MEDS: ACETAMINOPHEN 500 MG TABLET PO PRN ×2 (08:05→14:52)
[2020-06-06] MEDS: CHOLECALCIFEROL (VITAMIN D3) 50,000 UNIT CAPSULE PO SCH (08:05)
[2020-06-06] MEDS: QUEtiapine 25 MG TABLET. PO SCH ×4 (08:06→17:40)
--- NOTE | 2020-06-06 08:37 | PDOC ---
Exam Note: Danielito Note: This note is a late entry for 06/05/2020 covers elements not covered in my initial note. Subjective: The patient was seen on telehealth rounds in the evening of 06/05/2020 with Vickie SWENSON, discussed and reviewed the chart. The patient slept 7-1/4 hours previous night. He is either being quiet, sedated, withdrawn in his room, otherwise, and he was combative previous night. Today he was combative during toileting. Appetite is poor. He slept through lunch. Review of Systems: No CV, , pulmonary, eye, ENT system symptoms on review. Reliability poor. Mental Status Exam: The patient is oriented to himself. Insight and judgment, recent and remote memory, attention and concentration, fund of knowledge is poor consistent with his diagnosis. Laboratory Data: Reviewed. Impression: Major neurocognitive disorder Alzheimer vascular with delusion, depression, behavioral disturbance. Anxiety disorder unspecified. Impulse control disorder unspecified. Plan: No change from initial note. The patient remains quite withdrawn, depressed. We will start Wellbutrin 75 mg a.m. and noon. Meds were given crushed and we will not use the extended release. Continue rest of the psychotropics unchanged. Assessment: Vital Signs/I&O: Vital Signs Date Time Temp Pulse Resp B/P (MAP) Pulse Ox O2 Delivery O2 Flow Rate FiO2 06/06/20 05:58 97.5 75 18 158/95 (116) 94 06/03/20 16:07 Room Air I & O 06/05/20 06/05/20 06/06/20 14:59 22:59 06:59 Intake Total 480 ml 120 ml Balance 480 ml 120 ml Current Medications: Meds: Current Medications Medications (Trade) Dose Ordered Sig/Abdifatah Route PRN Reason Start Time Stop Time Status Last Admin Dose Admin Acetaminophen (Tylenol) 500 mg PRN Q6HRS PRN PO pain or fever 05/28/20 12:00 06/06/20 08:05 Aspirin (Aspirin Chewable) 81 mg DAILY PO 05/29/20 09:00 06/06/20 08:05 Bisacodyl (Dulcolax Tab) 5 mg PRN DAILY PRN PO 2ND CHOICE CONSTIPATION 05/28/20 12:00 Calcium Carbonate/ Glycine (Tums) 500 mg BID PO 05/28/20 21:00 06/06/20 08:05 Lorazepam (Ativan) 2 mg QHS PO 05/28/20 21:00 05/28/20 22:01 DC 05/28/20 20:37 Al Hydroxide/Mg Hydroxide (Mylanta Plus Xs) 15 ml PRN AFTMEALHC PRN PO DYSPEPSIA 05/28/20 12:00 UNV Memantine (Namenda) 10 mg BID PO 05/28/20 21:00 05/28/20 21:57 DC Olanzapine (ZyPREXA ZYDIS) 2.5 mg PRN Q2HRS PRN PO PSYCHOSIS 05/28/20 12:00 05/28/20 21:57 DC Quetiapine Fumarate (SEROquel) 25 mg BID92 PO 05/28/20 14:00 06/03/20 16:18 DC 06/03/20 08:37 Quetiapine Fumarate (SEROquel) 50 mg BID92 PO 05/28/20 14:00 05/31/20 13:24 DC 05/31/20 08:28 Quetiapine Fumarate (SEROquel) 100 mg QHS PO 05/28/20 21:00 05/31/20 13:24 DC 05/30/20 21:50 Sertraline HCl (Zoloft) 100 mg DAILY PO 05/29/20 09:00 06/05/20 20:01 DC 06/05/20 08:16 Tizanidine HCl (Zanaflex) 4 mg PRN Q8HRS PRN PO MUSCLE SPASMS 05/28/20 12:00 06/02/20 03:23 Trazodone HCl (Desyrel) 100 mg PRN QHS PRN PO INSOMNIA, MAY REPEAT X1 05/28/20 12:00 06/04/20 20:46 Atorvastatin Calcium (Lipitor) 40 mg QHS PO 05/28/20 21:00 06/05/20 21:27 Magnesium Hydroxide (Milk Of Magnesia) 2,400 mg PRN QHS PRN PO 1ST CHOICE CONSTIPATION 05/28/20 12:45 Multi-Ingredient Ointment (Analgesic [place]) 1 wendy PRN QID PRN TP MUSCLE PAIN 05/28/20 12:45 Al Hydroxide/Mg Hydroxide (Mylanta Plus Xs) 15 ml PRN AFTMEALHC PRN PO DYSPEPSIA 05/28/20 12:30 Olanzapine (ZyPREXA ZYDIS) 5 mg PRN Q2HRS PRN PO PSYCHOSIS 05/28/20 22:00 06/04/20 11:05 Divalproex Sodium (Depakote Sprinkles) 125 mg TID@0900,1300,1700 PO 05/29/20 09:00 05/29/20 18:06 DC Lorazepam (Ativan) 1.5 mg QHS PO 05/29/20 21:00 05/31/20 21:01 DC 05/30/20 21:50 Lorazepam (Ativan) 1 mg QHS PO 06/01/20 21:00 06/03/20 21:01 DC 06/03/20 20:56 Lorazepam (Ativan) 0.5 mg QHS PO 06/04/20 21:00 06/06/20 21:01 06/05/20 21:29 Vitamin D (Vitamin D3) 50,000 unit WEEKLY PO 05/29/20 16:00 05/29/20 17:50 DC Levothyroxine Sodium (Synthroid) 25 mcg DAILY06 PO 05/30/20 06:00 06/06/20 05:48 Vitamin D (Vitamin D3) 50,000 unit WEEKLY PO 05/30/20 09:00 06/06/20 08:05 Buspirone HCl (Buspar) 5 mg 0900,1700 PO 05/31/20 09:00 06/06/20 08:05 Quetiapine Fumarate (SEROquel) 50 mg QHS PO 05/31/20 21:00 06/05/20 21:27 Quetiapine Fumarate (SEROquel) 25 mg DAILY PO 06/04/20 09:00 06/04/20 17:34 DC 06/04/20 09:06 Quetiapine Fumarate (SEROquel) 12.5 mg 0900,1200,1500,1700 PO 06/05/20 09:00 06/06/20 08:06 Bupropion HCl (Wellbutrin) 75 mg 0900,1200 PO 06/06/20 09:00 06/06/20 08:05 Current Medications Medications (Trade) Dose Ordered Sig/Abdifatah Route PRN Reason Start Time Stop Time Status Last Admin Dose Admin Quetiapine Fumarate (SEROquel) 12.5 mg 0900,1200,1500,1700 PO 06/05/20 09:00 06/06/20 08:06 Bupropion HCl (Wellbutrin) 75 mg 0900,1200 PO 06/06/20 09:00 06/06/20 08:05 I have reviewed the current psychotropics carefully including drug interactions. Risk benefit ratio favors no change other than as noted in my dictated progress note. Diagnosis: Problems: (1) Anxiety disorder, unspecified (2) Dementia, vascular, with depression (3) Dementia, vascular, with delusions (4) Dementia in Alzheimer's disease with depression (5) Dementia in Alzheimer's disease with delusions (6) Dementia of the Alzheimer's type with early onset with behavioral disturbance (7) Major neurocognitive disorder, due to vascular disease, with behavioral dis turbance, mild NORMA AYALA MD Jun 06, 2020 08:37
[2020-06-06 16:41] VITALS: BP 160/85
--- NOTE | 2020-06-06 18:20 | RAD ---
Chest AP portable at 1723: Reason for examination: Left-sided chest pain. The heart size is normal. Mediastinum shows some soft tissue density inferiorly which may represent a tortuous aorta and/or hiatal hernia. Lung morales are clear with no congestion, infiltrates or pleura l effusions. No acute bony abnormality is seen. IMPRESSION: No acute cardiopulmonary disease evident. Mild prominence of the soft tissues in the inferior mediastinum which may represent tortuous aorta an d/or hiatal hernia. Electronically signed by: Maddie Marie MD (06/06/2020 6:17 PM) RISA
--- NOTE | 2020-06-06 18:30 | NUR ---
Patient was alert at breakfast, feeding himself in his room; he was compliant with medications crushed in pudding. He was drowsy after breakfast and slept until lunch. Patient was drowys at lunch and required assistance at lunch. He stayed in bed through the afternoon, hallucinating and restless but did not try to get out of bed. Will continue to monitor and report to oncoming shift.
--- NOTE | 2020-06-06 21:02 | PDOC ---
Exam Note: Danielito Note: Please also refer to the separate dictated note~for this date of service dictated separately.~Patient seen individually. Discussed the patient with Nursing staff reviewed the chart.~Reviewed interim history and current functioning. Reviewed vital signs,~Labs/ Radiology~and current medications noted below. Continue current treatment with the changes noted in the dictated addendum note Assessment: Vital Signs/I&O: Vital Signs Date Time Temp Pulse Resp B/P (MAP) Pulse Ox O2 Delivery O2 Flow Rate FiO2 06/06/20 16:41 98.3 80 20 160/85 (110) 93 Room Air I & O 06/05/20 06/05/20 06/06/20 14:59 22:59 06:59 Intake Total 480 ml 120 ml Balance 480 ml 120 ml Current Medications: Meds: Current Medications Medications (Trade) Dose Ordered Sig/Abdifatah Route PRN Reason Start Time Stop Time Status Last Admin Dose Admin Acetaminophen (Tylenol) 500 mg PRN Q6HRS PRN PO pain or fever 05/28/20 12:00 06/06/20 14:52 Aspirin (Aspirin Chewable) 81 mg DAILY PO 05/29/20 09:00 06/06/20 08:05 Bisacodyl (Dulcolax Tab) 5 mg PRN DAILY PRN PO 2ND CHOICE CONSTIPATION 05/28/20 12:00 Calcium Carbonate/ Glycine (Tums) 500 mg BID PO 05/28/20 21:00 06/06/20 08:05 Lorazepam (Ativan) 2 mg QHS PO 05/28/20 21:00 05/28/20 22:01 DC 05/28/20 20:37 Al Hydroxide/Mg Hydroxide (Mylanta Plus Xs) 15 ml PRN AFTMEALHC PRN PO DYSPEPSIA 05/28/20 12:00 UNV Memantine (Namenda) 10 mg BID PO 05/28/20 21:00 05/28/20 21:57 DC Olanzapine (ZyPREXA ZYDIS) 2.5 mg PRN Q2HRS PRN PO PSYCHOSIS 05/28/20 12:00 05/28/20 21:57 DC Quetiapine Fumarate (SEROquel) 25 mg BID92 PO 05/28/20 14:00 06/03/20 16:18 DC 06/03/20 08:37 Quetiapine Fumarate (SEROquel) 50 mg BID92 PO 05/28/20 14:00 05/31/20 13:24 DC 05/31/20 08:28 Quetiapine Fumarate (SEROquel) 100 mg QHS PO 05/28/20 21:00 05/31/20 13:24 DC 05/30/20 21:50 Sertraline HCl (Zoloft) 100 mg DAILY PO 05/29/20 09:00 06/05/20 20:01 DC 06/05/20 08:16 Tizanidine HCl (Zanaflex) 4 mg PRN Q8HRS PRN PO MUSCLE SPASMS 05/28/20 12:00 06/02/20 03:23 Trazodone HCl (Desyrel) 100 mg PRN QHS PRN PO INSOMNIA, MAY REPEAT X1 05/28/20 12:00 06/04/20 20:46 Atorvastatin Calcium (Lipitor) 40 mg QHS PO 05/28/20 21:00 06/05/20 21:27 Magnesium Hydroxide (Milk Of Magnesia) 2,400 mg PRN QHS PRN PO 1ST CHOICE CONSTIPATION 05/28/20 12:45 Multi-Ingredient Ointment (Analgesic [place]) 1 wendy PRN QID PRN TP MUSCLE PAIN 05/28/20 12:45 Al Hydroxide/Mg Hydroxide (Mylanta Plus Xs) 15 ml PRN AFTMEALHC PRN PO DYSPEPSIA 05/28/20 12:30 Olanzapine (ZyPREXA ZYDIS) 5 mg PRN Q2HRS PRN PO PSYCHOSIS 05/28/20 22:00 06/04/20 11:05 Divalproex Sodium (Depakote Sprinkles) 125 mg TID@0900,1300,1700 PO 05/29/20 09:00 05/29/20 18:06 DC Lorazepam (Ativan) 1.5 mg QHS PO 05/29/20 21:00 05/31/20 21:01 DC 05/30/20 21:50 Lorazepam (Ativan) 1 mg QHS PO 06/01/20 21:00 06/03/20 21:01 DC 06/03/20 20:56 Lorazepam (Ativan) 0.5 mg QHS PO 06/04/20 21:00 06/06/20 21:01 DC 06/05/20 21:29 Vitamin D (Vitamin D3) 50,000 unit WEEKLY PO 05/29/20 16:00 05/29/20 17:50 DC Levothyroxine Sodium (Synthroid) 25 mcg DAILY06 PO 05/30/20 06:00 06/06/20 05:48 Vitamin D (Vitamin D3) 50,000 unit WEEKLY PO 05/30/20 09:00 06/06/20 08:05 Buspirone HCl (Buspar) 5 mg 0900,1700 PO 05/31/20 09:00 06/06/20 17:40 Quetiapine Fumarate (SEROquel) 50 mg QHS PO 05/31/20 21:00 06/05/20 21:27 Quetiapine Fumarate (SEROquel) 25 mg DAILY PO 06/04/20 09:00 06/04/20 17:34 DC 06/04/20 09:06 Quetiapine Fumarate (SEROquel) 12.5 mg 0900,1200,1500,1700 PO 06/05/20 09:00 06/06/20 17:40 Bupropion HCl (Wellbutrin) 75 mg 0900,1200 PO 06/06/20 09:00 06/06/20 12:42 Current Medications Medications (Trade) Dose Ordered Sig/Abdifatah Route PRN Reason Start Time Stop Time Status Last Admin Dose Admin Bupropion HCl (Wellbutrin) 75 mg 0900,1200 PO 06/06/20 09:00 06/06/20 12:42 I have reviewed the current psychotropics carefully including drug interactions. Risk benefit ratio favors no change other than as noted in my dictated progress note. 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
[2020-06-06] MEDS: ATORVASTATIN CALCIUM 20 MG TABLET PO SCH (21:18)
[2020-06-06] MEDS: QUEtiapine 50 MG TABLET. PO SCH (21:18)
[2020-06-06] MEDS: LORazepam 0.5 MG TABLET PO SCH (21:19)
--- NOTE | 2020-06-06 23:48 | NUR ---
Pt located in his room this evening, sleeping on and off. Compliant with crushed medications in one bite of pudding. Continues to have visual hallucinations.
[2020-06-07 05:35] VITALS: BP 130/88
[2020-06-07] MEDS: LEVOTHYROXINE 25 MCG TABLET. PO SCH (05:44)
[2020-06-07 06:48] LABS: BASO # 0.1 x10^3/uL (0.0-0.2); BASO % 1 % (0-3); EOS # 0.3 x10^3/uL (0.0-0.7); EOS % 3 % (0-3); HEMATOCRIT 45.2 % (39.0-53.0); HEMOGLOBIN 14.4 g/dL (13.0-17.5); LYMPH # 2.1 x10^3/uL (1.0-4.8); LYMPH % 22 % (24-48); MEAN CORPUSCULAR HEMOGLOBIN 30 pg (25-35); MEAN CORPUSCULAR HGB CONC 32 g/dL (31-37); MEAN CORPUSCULAR VOLUME 93 fL (79-100); MONO # 0.9 x10^3/uL (0.0-1.1); MONO % 9 % (0-9); NEUT # 6.2 x10^3uL (1.8-7.7); NEUT % 65 % (31-73); PLATELET COUNT 283 x10^3/uL (140-400); RED BLOOD COUNT 4.86 x10^6/uL (4.30-5.70); RED CELL DISTRIBUTION WIDTH 13.7 % (11.5-14.5); WHITE BLOOD COUNT 9.4 x10^3/uL (4.0-11.0)
[2020-06-07 06:55] LABS: ALBUMIN 2.9 g/dL (3.4-5.0); ALBUMIN/GLOBULIN RATIO 0.5 (1.0-1.7); CALCIUM 10.2 mg/dL (8.5-10.1); CREATININE 1.7 mg/dL (0.7-1.3); GFR 39.1; POTASSIUM 4.5 mmol/L (3.5-5.1); TOTAL BILIRUBIN 0.4 mg/dL (0.2-1.0); TOTAL PROTEIN 8.2 g/dL (6.4-8.2)
--- NOTE | 2020-06-07 08:06 | PDOC ---
Exam Note: Danielito Note: This note is a late entry for 06/06/2020 covers elements not covered in my initial note. Subjective: The patient was seen face to face in the evening of 06/06/2020 with Freddie SWENSON, discussed and reviewed the chart. The patient slept 3-1/2 hours previous night. He refused his h.s. meds last night. He has been guarding his left side possible pain. We will defer to Dr. Salcedo. He has been in bed all previous night, little more sedated but more alert today but more restless. He ate breakfast and lunch, compliant with medications. Review of Systems: No CV, , pulmonary, eye, ENT system symptoms on review. Mental Status Exam: The patient is oriented to himself. Insight and judgment, recent and remote memory, attention and concentration, fund of knowledge is poor consistent with his diagnosis. Laboratory Data: Reviewed. Impression: Bipolar 1 disorder mixed with psychotic features. OCD. Anxiety disorder unspecified. Impulse control disorder unspecified. Plan: No change from initial note. Assessment: Vital Signs/I&O: Vital Signs Date Time Temp Pulse Resp B/P (MAP) Pulse Ox O2 Delivery O2 Flow Rate FiO2 06/07/20 05:35 22 130/88 (102) 06/06/20 16:41 98.3 20 93 Room Air I & O 06/06/20 06/06/20 06/07/20 14:59 22:59 06:59 Intake Total 480 ml 120 ml Balance 480 ml 120 ml Labs: Laboratory Tests Test 06/07/20 06:21 White Blood Count 9.4 x10^3/uL (4.0-11.0) Red Blood Count 4.86 x10^6/uL (4.30-5.70) Hemoglobin 14.4 g/dL (13.0-17.5) Hematocrit 45.2 % (39.0-53.0) Mean Corpuscular Volume 93 fL (79-100) Mean Corpuscular Hemoglobin 30 pg (25-35) Mean Corpuscular Hemoglobin Concent 32 g/dL (31-37) Red Cell Distribution Width 13.7 % (11.5-14.5) Platelet Count 283 x10^3/uL (140-400) Neutrophils (%) (Auto) 65 % (31-73) Lymphocytes (%) (Auto) 22 % (24-48) L Monocytes (%) (Auto) 9 % (0-9) Eosinophils (%) (Auto) 3 % (0-3) Basophils (%) (Auto) 1 % (0-3) Neutrophils # (Auto) 6.2 x10^3uL (1.8-7.7) Lymphocytes # (Auto) 2.1 x10^3/uL (1.0-4.8) Monocytes # (Auto) 0.9 x10^3/uL (0.0-1.1) Eosinophils # (Auto) 0.3 x10^3/uL (0.0-0.7) Basophils # (Auto) 0.1 x10^3/uL (0.0-0.2) Sodium Level 157 mmol/L (136-145) H Potassium Level 4.5 mmol/L (3.5-5.1) Chloride Level 118 mmol/L (98-107) H Carbon Dioxide Level 30 mmol/L (21-32) Anion Gap 9 (6-14) Blood Urea Nitrogen 45 mg/dL (8-26) H Creatinine 1.7 mg/dL (0.7-1.3) H Estimated GFR (Cockcroft-Gault) 39.1 BUN/Creatinine Ratio 26 (6-20) H Glucose Level 104 mg/dL (70-99) H Calcium Level 10.2 mg/dL (8.5-10.1) H Total Bilirubin 0.4 mg/dL (0.2-1.0) Aspartate Amino Transferase (AST) 47 U/L (15-37) H Alanine Aminotransferase (ALT) 88 U/L (16-63) H Alkaline Phosphatase 122 U/L (46-116) H Total Protein 8.2 g/dL (6.4-8.2) Albumin 2.9 g/dL (3.4-5.0) L Albumin/Globulin Ratio 0.5 (1.0-1.7) L Current Medications: Meds: Laboratory Tests Test 06/07/20 06:21 White Blood Count 9.4 x10^3/uL Red Blood Count 4.86 x10^6/uL Hemoglobin 14.4 g/dL Hematocrit 45.2 % Mean Corpuscular Volume 93 fL Mean Corpuscular Hemoglobin 30 pg Mean Corpuscular Hemoglobin Concent 32 g/dL Red Cell Distribution Width 13.7 % Platelet Count 283 x10^3/uL Neutrophils (%) (Auto) 65 % Lymphocytes (%) (Auto) 22 % Monocytes (%) (Auto) 9 % Eosinophils (%) (Auto) 3 % Basophils (%) (Auto) 1 % Neutrophils # (Auto) 6.2 x10^3uL Lymphocytes # (Auto) 2.1 x10^3/uL Monocytes # (Auto) 0.9 x10^3/uL Eosinophils # (Auto) 0.3 x10^3/uL Basophils # (Auto) 0.1 x10^3/uL Sodium Level 157 mmol/L Potassium Level 4.5 mmol/L Chloride Level 118 mmol/L Carbon Dioxide Level 30 mmol/L Anion Gap 9 Blood Urea Nitrogen 45 mg/dL Creatinine 1.7 mg/dL Estimated GFR (Cockcroft-Gault) 39.1 BUN/Creatinine Ratio 26 Glucose Level 104 mg/dL Calcium Level 10.2 mg/dL Total Bilirubin 0.4 mg/dL Aspartate Amino Transf (AST/SGOT) 47 U/L Alanine Aminotransferase (ALT/SGPT) 88 U/L Alkaline Phosphatase 122 U/L Total Protein 8.2 g/dL Albumin 2.9 g/dL Albumin/Globulin Ratio 0.5 Current Medications Medications (Trade) Dose Ordered Sig/Abdifatah Route PRN Reason Start Time Stop Time Status Last Admin Dose Admin Acetaminophen (Tylenol) 500 mg PRN Q6HRS PRN PO pain or fever 05/28/20 12:00 06/06/20 14:52 Aspirin (Aspirin Chewable) 81 mg DAILY PO 05/29/20 09:00 06/06/20 08:05 Bisacodyl (Dulcolax Tab) 5 mg PRN DAILY PRN PO 2ND CHOICE CONSTIPATION 05/28/20 12:00 Calcium Carbonate/ Glycine (Tums) 500 mg BID PO 05/28/20 21:00 06/06/20 21:18 Lorazepam (Ativan) 2 mg QHS PO 05/28/20 21:00 05/28/20 22:01 DC 05/28/20 20:37 Al Hydroxide/Mg Hydroxide (Mylanta Plus Xs) 15 ml PRN AFTMEALHC PRN PO DYSPEPSIA 05/28/20 12:00 UNV Memantine (Namenda) 10 mg BID PO 05/28/20 21:00 05/28/20 21:57 DC Olanzapine (ZyPREXA ZYDIS) 2.5 mg PRN Q2HRS PRN PO PSYCHOSIS 05/28/20 12:00 05/28/20 21:57 DC Quetiapine Fumarate (SEROquel) 25 mg BID92 PO 05/28/20 14:00 06/03/20 16:18 DC 06/03/20 08:37 Quetiapine Fumarate (SEROquel) 50 mg BID92 PO 05/28/20 14:00 05/31/20 13:24 DC 05/31/20 08:28 Quetiapine Fumarate (SEROquel) 100 mg QHS PO 05/28/20 21:00 05/31/20 13:24 DC 05/30/20 21:50 Sertraline HCl (Zoloft) 100 mg DAILY PO 05/29/20 09:00 06/05/20 20:01 DC 06/05/20 08:16 Tizanidine HCl (Zanaflex) 4 mg PRN Q8HRS PRN PO MUSCLE SPASMS 05/28/20 12:00 06/02/20 03:23 Trazodone HCl (Desyrel) 100 mg PRN QHS PRN PO INSOMNIA, MAY REPEAT X1 05/28/20 12:00 06/04/20 20:46 Atorvastatin Calcium (Lipitor) 40 mg QHS PO 05/28/20 21:00 06/06/20 21:18 Magnesium Hydroxide (Milk Of Magnesia) 2,400 mg PRN QHS PRN PO 1ST CHOICE CONSTIPATION 05/28/20 12:45 Multi-Ingredient Ointment (Analgesic [place]) 1 wendy PRN QID PRN TP MUSCLE PAIN 05/28/20 12:45 Al Hydroxide/Mg Hydroxide (Mylanta Plus Xs) 15 ml PRN AFTMEALHC PRN PO DYSPEPSIA 05/28/20 12:30 Olanzapine (ZyPREXA ZYDIS) 5 mg PRN Q2HRS PRN PO PSYCHOSIS 05/28/20 22:00 06/04/20 11:05 Divalproex Sodium (Depakote Sprinkles) 125 mg TID@0900,1300,1700 PO 05/29/20 09:00 05/29/20 18:06 DC Lorazepam (Ativan) 1.5 mg QHS PO 05/29/20 21:00 05/31/20 21:01 DC 05/30/20 21:50 Lorazepam (Ativan) 1 mg QHS PO 06/01/20 21:00 06/03/20 21:01 DC 06/03/20 20:56 Lorazepam (Ativan) 0.5 mg QHS PO 06/04/20 21:00 06/06/20 21:01 DC 06/06/20 21:19 Vitamin D (Vitamin D3) 50,000 unit WEEKLY PO 05/29/20 16:00 05/29/20 17:50 DC Levothyroxine Sodium (Synthroid) 25 mcg DAILY06 PO 05/30/20 06:00 06/07/20 05:44 Vitamin D (Vitamin D3) 50,000 unit WEEKLY PO 05/30/20 09:00 06/06/20 08:05 Buspirone HCl (Buspar) 5 mg 0900,1700 PO 05/31/20 09:00 06/06/20 17:40 Quetiapine Fumarate (SEROquel) 50 mg QHS PO 05/31/20 21:00 06/06/20 21:18 Quetiapine Fumarate (SEROquel) 25 mg DAILY PO 06/04/20 09:00 06/04/20 17:34 DC 06/04/20 09:06 Quetiapine Fumarate (SEROquel) 12.5 mg 0900,1200,1500,1700 PO 06/05/20 09:00 06/06/20 17:40 Bupropion HCl (Wellbutrin) 75 mg 0900,1200 PO 06/06/20 09:00 06/06/20 12:42 Current Medications Medications (Trade) Dose Ordered Sig/Abdifatah Route PRN Reason Start Time Stop Time Status Last Admin Dose Admin Bupropion HCl (Wellbutrin) 75 mg 0900,1200 PO 06/06/20 09:00 06/06/20 12:42 I have reviewed the current psychotropics carefully including drug interactions. Risk benefit ratio favors no change other than as noted in my dictated progress note. Diagnosis: Problems: (1) Anxiety disorder, unspecified (2) Dementia, vascular, with depression (3) Dementia, vascular, with delusions (4) Dementia in Alzheimer's disease with depression (5) Dementia in Alzheimer's disease with delusions (6) Dementia of the Alzheimer's type with early onset with behavioral disturbance (7) Major neurocognitive disorder, due to vascular disease, with behavioral disturbance, mild NORMA AYALA MD Jun 07, 2020 08:06
[2020-06-07] MEDS: QUEtiapine 25 MG TABLET. PO SCH (08:15)
[2020-06-07] MEDS: buPROPion 75 MG TABLET PO SCH ×2 (08:15→13:22)
[2020-06-07] MEDS: busPIRone 5 MG TABLET. PO SCH (08:15)
[2020-06-07] MEDS: ASPIRIN CHEWABLE 81 MG TABLET. PO SCH (08:15)
[2020-06-07] MEDS: CALCIUM CARBONATE 500 MG TAB.CHEW PO SCH ×2 (08:16→20:51)
--- NOTE | 2020-06-07 10:19 | NUR ---
WEEKLY ACTIVITY THERAPY NOTE Date of Admission: 05/28/20 Date of AT Assessment: 05/30/20 Precipitating behaviors that initiated intake and admission: increased behaviors, agitated, wandering gabbed peers arm on 2 separate occasions, sundowning, impulsive, insomnia, some physical aggression. Goal aimed: to increase sensory stimulation Initial Goal: Pt. will participate in at least five individual Activity Therapy sessions before discharge. Weekly progress towards goal: on track 0/5 Group participation level: zero Weekly highlights: Behaviors observed: sleeps, withdrawn to his room/ bed Plan: no change to goal Beneficial adaptations:
[2020-06-07] MEDS: ACETAMINOPHEN 500 MG TABLET PO PRN (13:22)
[2020-06-07 16:04] VITALS: BP 154/96
[2020-06-07] MEDS: IV DEXTROSE 5% 1,000 ML IV SCH (19:00)
[2020-06-07] MEDS: ATORVASTATIN CALCIUM 20 MG TABLET PO SCH (20:51)
--- NOTE | 2020-06-07 21:05 | PDOC ---
Exam Note: Danielito Note: Please also refer to the separate dictated note~for this date of service dictated separately.~Patient seen individually. Discussed the patient with Nursing staff reviewed the chart.~Reviewed interim history and current functioning. Reviewed vital signs,~Labs/ Radiology~and current medications noted below. Continue current treatment with the changes noted in the dictated addendum note Assessment: Vital Signs/I&O: Vital Signs Date Time Temp Pulse Resp B/P (MAP) Pulse Ox O2 Delivery O2 Flow Rate FiO2 06/07/20 16:04 97.2 80 20 154/96 (115) 92 Room Air I & O 06/06/20 06/06/20 06/07/20 15:00 23:00 07:00 Intake Total 480 ml 120 ml Balance 480 ml 120 ml Labs: Laboratory Tests Test 06/07/20 06:21 White Blood Count 9.4 x10^3/uL (4.0-11.0) Red Blood Count 4.86 x10^6/uL (4.30-5.70) Hemoglobin 14.4 g/dL (13.0-17.5) Hematocrit 45.2 % (39.0-53.0) Mean Corpuscular Volume 93 fL (79-100) Mean Corpuscular Hemoglobin 30 pg (25-35) Mean Corpuscular Hemoglobin Concent 32 g/dL (31-37) Red Cell Distribution Width 13.7 % (11.5-14.5) Platelet Count 283 x10^3/uL (140-400) Neutrophils (%) (Auto) 65 % (31-73) Lymphocytes (%) (Auto) 22 % (24-48) L Monocytes (%) (Auto) 9 % (0-9) Eosinophils (%) (Auto) 3 % (0-3) Basophils (%) (Auto) 1 % (0-3) Neutrophils # (Auto) 6.2 x10^3uL (1.8-7.7) Lymphocytes # (Auto) 2.1 x10^3/uL (1.0-4.8) Monocytes # (Auto) 0.9 x10^3/uL (0.0-1.1) Eosinophils # (Auto) 0.3 x10^3/uL (0.0-0.7) Basophils # (Auto) 0.1 x10^3/uL (0.0-0.2) Sodium Level 157 mmol/L (136-145) H Potassium Level 4.5 mmol/L (3.5-5.1) Chloride Level 118 mmol/L (98-107) H Carbon Dioxide Level 30 mmol/L (21-32) Anion Gap 9 (6-14) Blood Urea Nitrogen 45 mg/dL (8-26) H Creatinine 1.7 mg/dL (0.7-1.3) H Estimated GFR (Cockcroft-Gault) 39.1 BUN/Creatinine Ratio 26 (6-20) H Glucose Level 104 mg/dL (70-99) H Calcium Level 10.2 mg/dL (8.5-10.1) H Total Bilirubin 0.4 mg/dL (0.2-1.0) Aspartate Amino Transferase (AST) 47 U/L (15-37) H Alanine Aminotransferase (ALT) 88 U/L (16-63) H Alkaline Phosphatase 122 U/L (46-116) H Total Protein 8.2 g/dL (6.4-8.2) Albumin 2.9 g/dL (3.4-5.0) L Albumin/Globulin Ratio 0.5 (1.0-1.7) L Current Medications: Meds: Laboratory Tests Test 06/07/20 06:21 White Blood Count 9.4 x10^3/uL Red Blood Count 4.86 x10^6/uL Hemoglobin 14.4 g/dL Hematocrit 45.2 % Mean Corpuscular Volume 93 fL Mean Corpuscular Hemoglobin 30 pg Mean Corpuscular Hemoglobin Concent 32 g/dL Red Cell Distribution Width 13.7 % Platelet Count 283 x10^3/uL Neutrophils (%) (Auto) 65 % Lymphocytes (%) (Auto) 22 % Monocytes (%) (Auto) 9 % Eosinophils (%) (Auto) 3 % Basophils (%) (Auto) 1 % Neutrophils # (Auto) 6.2 x10^3uL Lymphocytes # (Auto) 2.1 x10^3/uL Monocytes # (Auto) 0.9 x10^3/uL Eosinophils # (Auto) 0.3 x10^3/uL Basophils # (Auto) 0.1 x10^3/uL Sodium Level 157 mmol/L Potassium Level 4.5 mmol/L Chloride Level 118 mmol/L Carbon Dioxide Level 30 mmol/L Anion Gap 9 Blood Urea Nitrogen 45 mg/dL Creatinine 1.7 mg/dL Estimated GFR (Cockcroft-Gault) 39.1 BUN/Creatinine Ratio 26 Glucose Level 104 mg/dL Calcium Level 10.2 mg/dL Total Bilirubin 0.4 mg/dL Aspartate Amino Transf (AST/SGOT) 47 U/L Alanine Aminotransferase (ALT/SGPT) 88 U/L Alkaline Phosphatase 122 U/L Total Protein 8.2 g/dL Albumin 2.9 g/dL Albumin/Globulin Ratio 0.5 Current Medications Medications (Trade) Dose Ordered Sig/Abdifatah Route PRN Reason Start Time Stop Time Status Last Admin Dose Admin Acetaminophen (Tylenol) 500 mg PRN Q6HRS PRN PO pain or fever 05/28/20 12:00 06/07/20 13:22 Aspirin (Aspirin Chewable) 81 mg DAILY PO 05/29/20 09:00 06/07/20 08:15 Bisacodyl (Dulcolax Tab) 5 mg PRN DAILY PRN PO 2ND CHOICE CONSTIPATION 05/28/20 12:00 Calcium Carbonate/ Glycine (Tums) 500 mg BID PO 05/28/20 21:00 06/07/20 08:16 Lorazepam (Ativan) 2 mg QHS PO 05/28/20 21:00 05/28/20 22:01 DC 05/28/20 20:37 Al Hydroxide/Mg Hydroxide (Mylanta Plus Xs) 15 ml PRN AFTMEALHC PRN PO DYSPEPSIA 05/28/20 12:00 UNV Memantine (Namenda) 10 mg BID PO 05/28/20 21:00 05/28/20 21:57 DC Olanzapine (ZyPREXA ZYDIS) 2.5 mg PRN Q2HRS PRN PO PSYCHOSIS 05/28/20 12:00 05/28/20 21:57 DC Quetiapine Fumarate (SEROquel) 25 mg BID92 PO 05/28/20 14:00 06/03/20 16:18 DC 06/03/20 08:37 Quetiapine Fumarate (SEROquel) 50 mg BID92 PO 05/28/20 14:00 05/31/20 13:24 DC 05/31/20 08:28 Quetiapine Fumarate (SEROquel) 100 mg QHS PO 05/28/20 21:00 05/31/20 13:24 DC 05/30/20 21:50 Sertraline HCl (Zoloft) 100 mg DAILY PO 05/29/20 09:00 06/05/20 20:01 DC 06/05/20 08:16 Tizanidine HCl (Zanaflex) 4 mg PRN Q8HRS PRN PO MUSCLE SPASMS 05/28/20 12:00 06/02/20 03:23 Trazodone HCl (Desyrel) 100 mg PRN QHS PRN PO INSOMNIA, MAY REPEAT X1 05/28/20 12:00 06/07/20 11:49 DC 06/04/20 20:46 Atorvastatin Calcium (Lipitor) 40 mg QHS PO 05/28/20 21:00 06/06/20 21:18 Magnesium Hydroxide (Milk Of Magnesia) 2,400 mg PRN QHS PRN PO 1ST CHOICE CONSTIPATION 05/28/20 12:45 Multi-Ingredient Ointment (Analgesic [place]) 1 wendy PRN QID PRN TP MUSCLE PAIN 05/28/20 12:45 Al Hydroxide/Mg Hydroxide (Mylanta Plus Xs) 15 ml PRN AFTMEALHC PRN PO DYSPEPSIA 05/28/20 12:30 Olanzapine (ZyPREXA ZYDIS) 5 mg PRN Q2HRS PRN PO PSYCHOSIS 05/28/20 22:00 06/04/20 11:05 Divalproex Sodium (Depakote Sprinkles) 125 mg TID@0900,1300,1700 PO 05/29/20 09:00 05/29/20 18:06 DC Lorazepam (Ativan) 1.5 mg QHS PO 05/29/20 21:00 05/31/20 21:01 DC 05/30/20 21:50 Lorazepam (Ativan) 1 mg QHS PO 06/01/20 21:00 06/03/20 21:01 DC 06/03/20 20:56 Lorazepam (Ativan) 0.5 mg QHS PO 06/04/20 21:00 06/06/20 21:01 DC 06/06/20 21:19 Vitamin D (Vitamin D3) 50,000 unit WEEKLY PO 05/29/20 16:00 05/29/20 17:50 DC Levothyroxine Sodium (Synthroid) 25 mcg DAILY06 PO 05/30/20 06:00 06/07/20 05:44 Vitamin D (Vitamin D3) 50,000 unit WEEKLY PO 05/30/20 09:00 06/06/20 08:05 Buspirone HCl (Buspar) 5 mg 0900,1700 PO 05/31/20 09:00 06/07/20 11:49 DC 06/07/20 08:15 Quetiapine Fumarate (SEROquel) 50 mg QHS PO 05/31/20 21:00 06/07/20 11:49 DC 06/06/20 21:18 Quetiapine Fumarate (SEROquel) 25 mg DAILY PO 06/04/20 09:00 06/04/20 17:34 DC 06/04/20 09:06 Quetiapine Fumarate (SEROquel) 12.5 mg 0900,1200,1500,1700 PO 06/05/20 09:00 06/07/20 11:49 DC 06/07/20 08:15 Bupropion HCl (Wellbutrin) 75 mg 0900,1200 PO 06/06/20 09:00 06/07/20 13:22 Dextrose 1,000 ml @ 100 mls/hr Q10H IV 06/07/20 17:45 06/07/20 19:00 Current Medications Medications (Trade) Dose Ordered Sig/Abdfiatah Route PRN Reason Start Time Stop Time Status Last Admin Dose Admin Dextrose 1,000 ml @ 100 mls/hr Q10H IV 06/07/20 17:45 06/07/20 19:00 I have reviewed the current psychotropics carefully including drug interactions. Risk benefit ratio favors no change other than as noted in my dictated progress note. Diagnosis: Problems: (1) Anxiety disorder, unspecified (2) Dementia, vascular, with depression (3) Dementia, vascular, with delusions (4) Dementia in Alzheimer's disease with depression (5) Dementia in Alzheimer's disease with delusions (6) Dementia of the Alzheimer's type with early onset with behavioral disturbance (7) Major neurocognitive disorder, due to vascular disease, with behavioral disturbance, mild NORMA AYALA MD Jun 07, 2020 21:05
[2020-06-07 22:17] LABS: AMORPHOUS SEDIMENT,UR PRESENT /HPF; BACTERIA,URINE 0 /HPF (0-FEW); BILIRUBIN,URINE NEG (NEG); CLARITY,URINE HAZY; COLOR,URINE AMBER; GLUCOSE,URINE NEG (NEG); NITRITE,URINE NEG (NEG); SQUAMOUS EPITHELIAL CELL,UR OCC /LPF; UROBILINOGEN,URINE 0.2 mg/dL (0.2 mg/dL); WBC,URINE 0 /HPF (0-4)
--- NOTE | 2020-06-07 23:02 | NUR ---
Pt sleeping in bed this evening. Staff x5 assisted in obtaining pt's UA. Pt agitated and combative during straight cath. Pt currently has IV fluids infusing with mitts on d/t pt's restlessness.
[2020-06-08] MEDS: IV DEXTROSE 5% 1,000 ML IV SCH ×3 (04:35→23:46)
[2020-06-08] MEDS: LEVOTHYROXINE 25 MCG TABLET. PO SCH (05:07)
[2020-06-08 05:51] VITALS: BP 133/79
[2020-06-08 06:49] LABS: ALBUMIN 2.7 g/dL (3.4-5.0); ALBUMIN/GLOBULIN RATIO 0.5 (1.0-1.7); CALCIUM 9.2 mg/dL (8.5-10.1); CREATININE 1.6 mg/dL (0.7-1.3); GFR 41.9; POTASSIUM 3.8 mmol/L (3.5-5.1); TOTAL BILIRUBIN 0.4 mg/dL (0.2-1.0); TOTAL PROTEIN 7.7 g/dL (6.4-8.2)
[2020-06-08] MEDS: ASPIRIN CHEWABLE 81 MG TABLET. PO SCH (09:00)
[2020-06-08] MEDS: buPROPion 75 MG TABLET PO SCH ×2 (09:00→12:00)
[2020-06-08] MEDS: CALCIUM CARBONATE 500 MG TAB.CHEW PO SCH ×2 (09:00→21:00)
--- NOTE | 2020-06-08 09:58 | TX PLAN ---
Interdisciplinary Tx Plan Admission Information May 28, 2020 at 10:40 Legal Status (on Admission): Voluntary DPOA/Guardian Name: Janee Rodarte Contact Other Contact Name: Ro Other Contact Verified Code Status: DNR Allergies: Coded Allergies: No Known Drug Allergies (Unverified , 05/26/20) Diagnoses Primary Diagnosis: (1) Anxiety disorder, unspecified (2) Dementia, vascular, with depression (3) Dementia, vascular, with delusions (4) Dementia in Alzheimer's disease with depression (5) Dementia in Alzheimer's disease with delusions (6) Dementia of the Alzheimer's type with early onset with behavioral disturbance (7) Major neurocognitive disorder, due to vascular disease, with behavioral disturbance, mild Reasons for Admission: Aggressive, Agitated, Sig. Change Sleep, Angry, Combative, Confusion/Disoriented Problem in Patient's Words: Pt has had to have a 1:1 for lack of sleep. He is active at night and doesn't sleep. The most sleep recently that he has gotten has been about four hours. Ambien has been tried and maybe some Lorazepam. He, also, has been getting into other patient rooms. Finally, he has been agitated. Additional Admission Comments: Per intake record, pt has increased behaviors of agitation, wandering, grabbed a peers arm on two seperate occasions, sundowning, impulsive, insomnia, some physical aggression. Problems Active Problems: Aggression, agitation, restless, confusion, lack of sleep, wandering Inactive Problems: None noted at this time. Pt Strengths/Limitations Ability for Miller: Poor Cognitive Functioning/Ability: Poor Communication Skills/Ability: Poor Financial Resources: Good Insight/Judgement: Poor Intellectual Ability: Fair Physical Health: Fair Social Skills: Poor Stability in Family: Good Stability in School/Work: Good Verbal Skills: Fair Discharge Criteria Discharge Criteria: No need for close observ., Able to meet health needs, Adequate arrangements @DC, Verbal commit med comply, Improved behavior Other Discharge Comments: None Preliminary Discharge Plan Preliminary DC Plan: Memory Care Special Precautions Special Precautions: Agitation/Assault Fall Risk: Moderate Initial D/C Plan Pt will return to [facility] once stable. Identified Discharge Needs: None noted at this time. Currently Utilized Resources Currently Utilized Resources/P: PCP is Dr. Leung DPOA is dtr, [facility] Community Resources: None noted at this time. Identified Problems/Hx/Goals Objectives/Short-Term Goals Short Term Goals: Control abnormal behavior, Dec. Aggression, Dec. Hallucination/Delus, Dec. Outbursts, Medication Stabilization, Monitor Med Effects, Prevent Deterioration Short Term Goals in Patient's: Dtr would like to see pt eliminate aggression and be compliant with medications. Interventions/Frequency Staff Interventions/Frequency&: Psychiatry to assess pt three times per week for medication management. Nursing to assess pt behaviors, monitor medications, and complete 15 minute checks daily. Social work to see pt at least two times weekly to aid in return to placement. Activities to encourage pt to participate in group activities daily. 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 Education: Medical [employer] Community Follow-up PCP-Dr. Leung Community Provider/Family Inpu: Pt Janee velasquez will participate in weekly treatment planning meetings. Treatment Plan Explained Patient/Loan Administrator had this treatment plan explained to him/her as indicated by the signature below and has been given the opportunity to ask questions and make suggestions: Date: Patient/Loan Administrator Signature: Status Update Update Pt eating approximately 25% of his meals and averaging about 5 hours of sleep. Pt has been combative with care d/t to confusion. Occasionally, pt will feed himself and other times needs help. Needs assistance with ADLs and toileting. Pt will plan be to have an x-ray as it appears that he may be experiencing some discomfort or pain. Andrea/Janee BRUSH, participated in this treatment team meeting and reported that pt has previously had pain in the middle of his back. Pt has been reaching out grabbing in the air for things that aren't there. Pt has not been able to participate in group activities, d/t confusion and agitation. Activity therapist will continue to try to engage. Medications will be adjusted in an attempt to try to not be so sedating. This treatment plan was reviewed on 06/07/20 and entered today, on 06/08/20. HUEY PETERSb 12, 2021 09:58
--- NOTE | 2020-06-08 11:02 | NUR ---
Pt has been present in front of the nurse station since 0700. He has remained in the broda chair and has been mostly asleep aside from the few occasions of crying out. Even while sleeping he trembles and shakes, his limbs remain stiff and difficult to move by staff. At times he will drosser onto his L ribs and make crying sounds. Today he had a CT of the head (without contrast) and xray of the L ribs. Readings/findings are pending. He has IVF Dextrose 5% running at 100 mL/hr via 22 jhoana in the R forearm. IV site assessed; dressing CDI, IV able to be flushed however no blood return. No signs of infection or infiltration at IV site. He has mitts fastened onto his hands to prevent intentional/unintentional self removal of the IV; mitts remain secure and circulation to the hands/skin integrity have not been impacted. Morning PO meds were held d/t pt being in deep state of sleep. He has been absent of violent behaviors so far this shift. He has been resistant to having his mouth moistened. He did not consume much for breakfast aside from an Ensure which required multiple direct prompts from staff to physically suck onto the straw. He has not engaged or interacted with staff so far this shift. Will pass onto the next shift.
--- NOTE | 2020-06-08 15:26 | RAD ---
XR RIBS 2 VIEWS LT Indication: Reason: fall with left sided pain / Spl. Instructions: / History: FINDINGS: No acute displaced rib fracture is seen. Cardiac silhouette is enlarged. Lungs are suboptimally evaluated on this exam. IMPRESSION: No acute displaced rib fracture is seen. MTDD
--- NOTE | 2020-06-08 15:28 | RAD ---
CT HEAD/BRAIN WO Indication: Reason: AMS / Spl. Instructions: / History: TECHNIQUE: Head CT was performed without intravenous contrast. One or more of the following dose reduction techniques were utilized: *Automated exposure control (AEC) *Adjustment of mA and/or kV according to patient size *Use of iterative reconstruction technique *CT scan done according to ALARA, or ALARA/IMAGE GENTLY FINDINGS: The ventricles and sulci are prominent consistent with cerebral volume loss. Patchy ill-defined low attenuation areas in the subcortical and periventricular white matter bilaterally are consistent with microvascular disease. There is no evidence of acute intracranial hemorrhage, extra-axial collection, mass effect, midline shift, or acute territorial infarct. No lesion of the skull base or the calvarium is seen. The visualized paranasal sinuses, mastoid air cells and orbits are normal in appearance. IMPRESSION: No evidence for acute intracranial abnormality. Volume loss and microvascular disease. MTDD
[2020-06-08 16:56] VITALS: BP 138/88
--- NOTE | 2020-06-08 18:00 | NUR ---
Spoke with dtr and pt PCP Dr Leung at great length regarding current condition. Verbalized understanding. Will continue to keep dtr updated. Dr Leung stated he was available if needed.
[2020-06-08] MEDS: ATORVASTATIN CALCIUM 20 MG TABLET PO SCH (21:00)
[2020-06-09 01:15] LABS: CALCIUM PTH 9.8 mg/dL (8.6-10.2); CREATININE PTH 1.45 mg/dL (0.76-1.27); PTH INTACT 33 pg/mL (15-65)
--- NOTE | 2020-06-09 01:58 | NUR ---
Nursing Note The patient was located in his room laying bed this shift. The patient is mostly non verbal and does not respond appropriately to questions by this nurse. The patient is currently receiving IV fluid dextrose 5%@100ml/hr. The iv site appears normal without swelling, redness or irritation. the patient has had episodes of increased agitation this shift and required PRN Zyprexa per PRN order.
[2020-06-09 05:53] VITALS: BP 158/84
[2020-06-09] MEDS: LEVOTHYROXINE 25 MCG TABLET. PO SCH (05:55)
[2020-06-09 08:02] LABS: CALCIUM 9.2 mg/dL (8.5-10.1); CREATININE 1.5 mg/dL (0.7-1.3); GFR 45.1
[2020-06-09] MEDS: ASPIRIN CHEWABLE 81 MG TABLET. PO SCH (08:22)
[2020-06-09] MEDS: buPROPion 75 MG TABLET PO SCH ×2 (08:23→12:00)
[2020-06-09] MEDS: CALCIUM CARBONATE 500 MG TAB.CHEW PO SCH ×2 (08:23→19:32)
[2020-06-09] MEDS: IV DEXTROSE 5% 1,000 ML IV SCH ×2 (09:45→19:28)
[2020-06-09 15:47] VITALS: BP 119/75
--- NOTE | 2020-06-09 18:43 | NUR ---
Pt up in bed for meals. Has been more awake today but remains restless at times. Ate 100 % lunch fed by staff. Ate ensure and yogurt for supper. Dr Salcedo saw pt and a new order for BMP in am.
[2020-06-09] MEDS: ATORVASTATIN CALCIUM 20 MG TABLET PO SCH (19:32)
--- NOTE | 2020-06-09 21:21 | PDOC ---
Exam Note: Danielito Note: Late entry for 06/08/2020. Please also refer to the separate dictated note~for this date of service dictated separately.~Patient seen individually. Discussed the patient with Nursing staff reviewed the chart.~Reviewed interim history and current functioning. Reviewed vital signs,~Labs/ Radiology~and current medic ations noted below. Continue current treatment with the changes noted in the dictated addendum note Assessment: Vital Signs/I&O: Vital Signs Date Time Temp Pulse Resp B/P (MAP) Pulse Ox O2 Delivery O2 Flow Rate FiO2 06/09/20 15:47 97.7 91 20 119/75 (90) 99 06/09/20 05:53 Room Air I & O 0 06/08/20 06/08/20 06/09/20 15:00 23:00 07:00 Intake Total 600 ml 120 ml 2700 ml Balance 600 ml 120 ml 2700 ml Labs: Laboratory Tests Test 06/09/20 06:00 06/09/20 07:14 Coronavirus (PCR) Not detected (Not Detected) Sodium Level 148 mmol/L (136-145) H Potassium Level 4.0 mmol/L (3.5-5.1) Chloride Level 111 mmol/L (98-107) H Carbon Dioxide Level 28 mmol/L (21-32) Anion Gap 9 (6-14) Blood Urea Nitrogen 35 mg/dL (8-26) H Creatinine 1.5 mg/dL (0.7-1.3) H Estimated GFR (Cockcroft-Gault) 45.1 Glucose Level 93 mg/dL (70-99) Calcium Level 9.2 mg/dL (8.5-10.1) Current Medications: I have reviewed the current psychotropics carefully including drug interactions. Risk benefit ratio favors no change other than as noted in my dictated progress note. Diagnosis: Problems: (1) Anxiety disorder, unspecified (2) Dementia, vascular, with depression (3) Dementia, vascular, with delusions (4) Dementia in Alzheimer's disease with depression (5) Dementia in Alzheimer's disease with delusions (6) Dementia of the Alzheimer's type with early onset with behavioral disturbance (7) Major neurocognitive disorder, due to vascular disease, with behavioral disturbance, mild NORMA AYALA MD Jun 09, 2020 21:21
--- NOTE | 2020-06-09 21:22 | PDOC ---
Exam Note: Danielito Note: Please also refer to the separate dictated note~for this date of service dictated separately.~Patient seen individually. Discussed the patient with Nursing staff reviewed the chart.~Reviewed interim history and current functioning. Reviewed vital signs,~Labs/ Radiology~and current medications noted below. Continue current treatment with the changes noted in the dictated addendum note Assessment: Vital Signs/I&O: Vital Signs Date Time Temp Pulse Resp B/P (MAP) Pulse Ox O2 Delivery O2 Flow Rate FiO2 06/09/20 15:47 97.7 91 20 119/75 (90) 99 06/09/20 05:53 Room Air I & O 06/08/20 06/08/20 06/09/20 15:00 23:00 07:00 Intake Total 600 ml 120 ml 2700 ml Balance 600 ml 120 ml 2700 ml Labs: Laboratory Tests Test 06/09/20 06:00 06/09/20 07:14 Coronavirus (PCR) Not detected (Not Detected) Sodium Level 148 mmol/L (136-145) H Potassium Level 4.0 mmol/L (3.5-5.1) Chloride Level 111 mmol/L (98-107) H Carbon Dioxide Level 28 mmol/L (21-32) Anion Gap 9 (6-14) Blood Urea Nitrogen 35 mg/dL (8-26) H Creatinine 1.5 mg/dL (0.7-1.3) H Estimated GFR (Cockcroft-Gault) 45.1 Glucose Level 93 mg/dL (70-99) Calcium Level 9.2 mg/dL (8.5-10.1) Current Medications: I have reviewed the current psychotropics carefully including drug interactions. Risk benefit ratio favors no change other than as noted in my dictated progress note. Diagnosis: Problems: (1) Anxiety disorder, unspecified (2) Dementia, vascular, with depression (3) Dementia, vascular, with delusions (4) Dementia in Alzheimer's disease with depression (5) Dementia in Alzheimer's disease with delusions (6) Dementia of the Alzheimer's type with early onset with behavioral disturbance (7) Major neurocognitive disorder, due to vascular disease, with behavioral disturbance, mild NORMA AYALA MD Jun 09, 2020 21:22
--- NOTE | 2020-06-10 03:10 | NUR ---
Nursing Note The patient was located in his room for his assessment and medication. The patient was non verbal for most interactions although several times the patient attempted to converse with this nurse. The patient continues to receive IV Dextrose 5%@100ml/hr. IV site was normal in appearance with no redness, irritation or swelling. The patient has had a restless night sleeping off and on. the patient is currently awake.
[2020-06-10] MEDS: IV DEXTROSE 5% 1,000 ML IV SCH ×2 (05:04→15:45)
[2020-06-10] MEDS: LEVOTHYROXINE 25 MCG TABLET. PO SCH (05:21)
[2020-06-10 06:27] VITALS: BP 146/88
[2020-06-10] MEDS: CALCIUM CARBONATE 500 MG TAB.CHEW PO SCH ×2 (08:08→19:02)
[2020-06-10] MEDS: buPROPion 75 MG TABLET PO SCH ×2 (08:11→11:07)
[2020-06-10] MEDS: ASPIRIN CHEWABLE 81 MG TABLET. PO SCH (08:11)
[2020-06-10 10:17] LABS: ALBUMIN 2.3 g/dL (3.4-5.0); ALBUMIN/GLOBULIN RATIO 0.5 (1.0-1.7); CALCIUM 8.6 mg/dL (8.5-10.1); CREATININE 1.4 mg/dL (0.7-1.3); GFR 48.9; POTASSIUM 3.7 mmol/L (3.5-5.1); TOTAL BILIRUBIN 0.5 mg/dL (0.2-1.0); TOTAL PROTEIN 7.1 g/dL (6.4-8.2)
[2020-06-10 15:39] VITALS: BP 117/64
--- NOTE | 2020-06-10 17:25 | RAD ---
EXAM: CT OF THE CHEST, ABDOMEN AND PELVIS WITHOUT CONTRAST. HISTORY: Fall. Chest/abdominal pain. TECHNIQUE: Computed tomography of the chest, abdomen and pelvis was performed without intravenous con trast. One or more of the following individualized dose reduction techniques were utilized for this e xamination: 1. Automated exposure control. 2. Adjustment of the mA and/or kV according to patient size. 3. Use of iterative reconstruction technique. COMPARISON: None. FINDINGS: Bone windows reveal no suspicious lesions. There are no pathologically enlarged mediastinal or axillary lymph nodes. There is no pleural or franklyn cardial effusion. The heart is not enlarged. Coronary atherosclerotic calcifications are noted. There is a moderate hiatal hernia. Lung windows demonstrate dependent atelectasis bilaterally. There is respiratory motion artifact. Sma ll calcified pleural plaques are noted on the left. The liver, spleen, pancreas, adrenal glands and left kidney are unremarkable without contrast. A cyst anteriorly in the right kidney appears benign and measures 2.7 cm. The gallbladder is surgically abs ent. There are no pathologically enlarged lymph nodes. The appendix is surgically absent. The prostate is moderately enlarged. There is moderate diffuse bladder wall thickening. Sigmoid diverticulosis is mod erate. There is no small bowel obstruction. IMPRESSION: 1. No cause for pain is identified. 2. Moderate hiatal hernia. Electronically signed by: Bobo Ruth MD (06/10/2020 5:23 PM) [facility]
[2020-06-10] MEDS: ATORVASTATIN CALCIUM 20 MG TABLET PO SCH (19:03)
--- NOTE | 2020-06-10 19:31 | PN ---
DATE: 06/10/2020 SUBJECTIVE: The patient is a 80-year-old male patient who was referred from [facility] by his primary care physician and psychiatrist with diagnosis of major neurocognitive disorder, Alzheimer, vascular with delusion, depression, [facility] with significant behavioral problems. He was admitted to [address] [place] [address], was screened for COVID-19 that turned out to be negative and therefore he was transferred [facility] psychiatric stabilization. He apparently was wandering, grabbed the peer on the arm on 2 separate occasions, confused, agitated, delusional with increasing agitation and aggression. This seemed to be worsened with sundowning, very impulsive, has marked insomnia and despite adjustment of his psychotropic medication, he continued with this behavior that is unmanageable. He was admitted to this unit on 05/28/2020 and the patient has been very lethargic, markedly dehydrated. His serum sodium has steadily risen up to 157 mEq per liter. His kidney function has also worsened and therefore we started him on D5W for the last 72 hours and his serum sodium and kidney function has steadily improved. His serum sodium today is 140, potassium 3.7, chloride 104, bicarbonate 28, anion gap of 8, BUN 30, creatinine 1.4. The patient is now more awake and interactive, although he is confused; however, he continued to complain of severe pain on the left side of his chest. We actually did a chest x-ray before, which showed no acute cardiopulmonary disease evident, has mild prominence of the soft tissues in the inferior mediastinum, which may represent tortuous aorta or hiatal hernia and we did actually rib views on the left side, which showed no acute displaced rib fracture seen as he continued to have this exquisite pain that he basically becomes very agitated and restless as soon as I touch his left side of the chest. I did inspect that area to see if there are any scars or previous shingles; however, there was none. We asked the patient whether he has ever had any shingles before, but he said he was not forthcoming with any answer. PHYSICAL EXAMINATION: GENERAL: When I examined him this afternoon, he looked well and was resting slightly propped up in his recliner, in no apparent distress. There was no pallor, jaundice, cyanosis or thyromegaly. No jugular venous distention. No lower limb edema. VITAL SIGNS: His heart rate was 74, blood pressure was 146/88, temperature was 98.2, respiratory rate 22, and oxygen saturation was 99%. HEAD, EYES, EARS, NOSE AND THROAT: Showed normocephalic, atraumatic. NECK: Supple. HEART: Normal first and second heart sounds. No gallop, rub or murmur. CHEST: Clear to auscultation. No crepitation or rhonchi. ABDOMEN: Distended, soft, nontender. NEUROLOGIC: He is demented, but without any obvious lateralizing sign. On palpating his right side of the chest or his back, that did not elicit any severe pain; however, the moment you touch his left side of his chest, it elicits severe exquisite pain. The patient describes cries or screams because of the severity of the pain. There are no obvious shingles or scars of previous episode of shingles and the rib views were unremarkable. The chest x-ray was unremarkable. PLAN: My plan is to arrange for him to have a CT scan of the chest, abdomen and pelvis without contrast given his impaired kidney function and if that did not provide us an answer, I would also arrange for him to have; however, a total body bone scan. Meanwhile, we could start him on Lidoderm patch or perhaps Cymbalta as the best medication for neuropathic pain. GIULIA LIMON MD DR: CHIOMA/jun JOB#: [id number] / [id number]
--- NOTE | 2020-06-10 20:57 | PDOC ---
Exam Note: Danielito Note: Please also refer to the separate dictated note~for this date of service dictated separately.~Patient seen individually. Discussed the patient with Nursing staff reviewed the chart.~Reviewed interim history and current functioning. Reviewed vital signs,~Labs/ Radiology~and current medications noted below. Continue current treatment with the changes noted in the dictated addendum note Assessment: Vital Signs/I&O: Vital Signs Date Time Temp Pulse Resp B/P (MAP) Pulse Ox O2 Delivery O2 Flow Rate FiO2 06/10/20 15:39 99.1 91 20 117/64 (81) 94 06/09/20 05:53 Room Air I & O 06/09/20 06/09/20 06/10/20 15:00 23:00 07:00 Intake Total 240 ml 1885 ml Balance 240 ml 1885 ml Labs: Laboratory Tests Test 06/10/20 10:00 Sodium Level 140 mmol/L (136-145) Potassium Level 3.7 mmol/L (3.5-5.1) Chloride Level 104 mmol/L (98-107) Carbon Dioxide Level 28 mmol/L (21-32) Anion Gap 8 (6-14) Blood Urea Nitrogen 30 mg/dL (8-26) H Creatinine 1.4 mg/dL (0.7-1.3) H Estimated GFR (Cockcroft-Gault) 48.9 BUN/Creatinine Ratio 21 (6-20) H Glucose Level 97 mg/dL (70-99) Calcium Level 8.6 mg/dL (8.5-10.1) Total Bilirubin 0.5 mg/dL (0.2-1.0) Aspartate Amino Transferase (AST) 33 U/L (15-37) Alanine Aminotransferase (ALT) 58 U/L (16-63) Alkaline Phosphatase 113 U/L (46-116) Total Protein 7.1 g/dL (6.4-8.2) Albumin 2.3 g/dL (3.4-5.0) L Albumin/Globulin Ratio 0.5 (1.0-1.7) L Current Medications: I have reviewed the current psychotropics carefully including drug interactions. Risk benefit ratio favors no change other than as noted in my dictated progress note. Diagnosis: Problems: (1) Anxiety disorder, unspecified (2) Dementia, vascular, with depression (3) Dementia, vascular, with delusions (4) Dementia in Alzheimer's disease with depression (5) Dementia in Alzheimer's disease with delusions (6) Dementia of the Alzheimer's type with early onset with behavioral disturbance (7) Major neurocognitive disorder, due to vascular disease, with behavioral disturbance, mild NORMA AYALA MD Jun 10, 2020 20:57
--- NOTE | 2020-06-11 01:27 | NUR ---
Patient located outside the [facility] on assumption of care, dozing in a Broda chair. 22 gauge in left hand patent, running D5 at 100mL/hr. No redness, tenderness, or irritation noted at site. Staff assist of 3 required to transfer patient from chair to bed. He is very resistant to moving and changing position, guarding his left flank area, grimacing, and yelling out. Once repositioned, patient settled down. He is intermittently sleeping or picking at the air. He continues to wear mitts for safety. PRN Zydis administered sublingually for restlessness at 0045. Moderate effect. Patient appears to be sleeping comfortably at present time. Will continue to monitor.
[2020-06-11] MEDS: IV DEXTROSE 5% 1,000 ML IV SCH ×2 (01:45→11:45)
[2020-06-11] MEDS: LEVOTHYROXINE 25 MCG TABLET. PO SCH (05:15)
[2020-06-11 06:32] VITALS: BP 137/83
--- NOTE | 2020-06-11 07:16 | PDOC ---
Exam Note: Danielito Note: This note is a late entry for 06/07/2020 covers elements not covered in my initial note. Subjective: The patient was seen face to face in the morning of 06/07/2020 for a treatment team meeting with Rosie Mejia, Payton Lechuga and Christina (executive secretary social welfare), Maisha Capone, activity therapy and Karen SWENSON, discussed and reviewed the patients history of progressive dementia. The patients daughter Tierra was also present for the meeting. He slept 8 hours previous night. 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 As the daughter explained while at [facility]. He was confused, agitated, not sleeping well at night. Since being here, he has been quite sedated despite reduction in his Seroquel. We did add BuSpar but that should not have any sedation or at least not to a significant extent to explain this. It could be the change in environment that could be impacting this. Later in the day I did talk to Dr. Leung, the [facility] and Dr. Singh information was very detailed and helpful. We will be checking labs and medically the patient is being followed by Dr. Salcedo/Dr. Knight and if he is dehydrated, he may need rehydration which may explain some of the sedation. We will also consult Dr. Hernandez, Neurology. At times the patient is being combative with cares despite being sedated. He was more awake in the morning, little restless. Review of Systems: No CV, , pulmonary, eye, ENT system symptoms on review. Reliability poor. Mental Status Exam: The patient is oriented to himself. Insight and judgment, recent and remote memory, attention and concentration, fund of knowledge is poor consistent with his diagnosis. Laboratory Data: Reviewed. Impression: Major neurocognitive disorder Alzheimer vascular with delusion, depression, behavioral disturbance. Anxiety disorder unspecified. Impulse control disorder unspecified. Rule out dehydration and oversedation. Plan: After all the above discussions including with Dr. Leung, we opted additionally to do a CT head if the patient can cooperate with this to make sure there is no acute lesion to account for the sedation. We will stop the Seroquel, trazodone, BuSpar, not use the Zyprexa. Ativan has been discontinued. We will make further adjustments as clinically indicated. Assessment: Vital Signs/I&O: Vital Signs Date Time Temp Pulse Resp B/P (MAP) Pulse Ox O2 Delivery O2 Flow Rate FiO2 06/11/20 06:32 97.9 77 22 137/83 (101) 95 Room Air I & O 06/10/20 06/10/20 06/11/20 15:00 23:00 07:00 Intake Total 480 ml 380 ml 0 ml Balance 480 ml 380 ml 0 ml Labs: Laboratory Tests Test 06/10/20 10:00 Sodium Level 140 mmol/L (136-145) Potassium Level 3.7 mmol/L (3.5-5.1) Chloride Level 104 mmol/L (98-107) Carbon Dioxide Level 28 mmol/L (21-32) Anion Gap 8 (6-14) Blood Urea Nitrogen 30 mg/dL (8-26) H Creatinine 1.4 mg/dL (0.7-1.3) H Estimated GFR (Cockcroft-Gault) 48.9 BUN/Creatinine Ratio 21 (6-20) H Glucose Level 97 mg/dL (70-99) Calcium Level 8.6 mg/dL (8.5-10.1) Total Bilirubin 0.5 mg/dL (0.2-1.0) Aspartate Amino Transferase (AST) 33 U/L (15-37) Alanine Aminotransferase (ALT) 58 U/L (16-63) Alkaline Phosphatase 113 U/L (46-116) Total Protein 7.1 g/dL (6.4-8.2) Albumin 2.3 g/dL (3.4-5.0) L Albumin/Globulin Ratio 0.5 (1.0-1.7) L Current Medications: Meds: Laboratory Tests Test 06/10/20 10:00 Sodium Level 140 mmol/L Potassium Level 3.7 mmol/L Chloride Level 104 mmol/L Carbon Dioxide Level 28 mmol/L Anion Gap 8 Blood Urea Nitrogen 30 mg/dL Creatinine 1.4 mg/dL Estimated GFR (Cockcroft-Gault) 48.9 BUN/Creatinine Ratio 21 Glucose Level 97 mg/dL Calcium Level 8.6 mg/dL Total Bilirubin 0.5 mg/dL Aspartate Amino Transf (AST/SGOT) 33 U/L Alanine Aminotransferase (ALT/SGPT) 58 U/L Alkaline Phosphatase 113 U/L Total Protein 7.1 g/dL Albumin 2.3 g/dL Albumin/Globulin Ratio 0.5 Current Medications Medications (Trade) Dose Ordered Sig/Abdifatah Route PRN Reason Start Time Stop Time Status Last Admin Dose Admin Acetaminophen (Tylenol) 500 mg PRN Q6HRS PRN PO pain or fever 05/28/20 12:00 06/07/20 13:22 Aspirin (Aspirin Chewable) 81 mg DAILY PO 05/29/20 09:00 06/10/20 08:11 Bisacodyl (Dulcolax Tab) 5 mg PRN DAILY PRN PO 2ND CHOICE CONSTIPATION 05/28/20 12:00 Calcium Carbonate/ Glycine (Tums) 500 mg BID PO 05/28/20 21:00 06/10/20 19:02 Lorazepam (Ativan) 2 mg QHS PO 05/28/20 21:00 05/28/20 22:01 DC 05/28/20 20:37 Al Hydroxide/Mg Hydroxide (Mylanta Plus Xs) 15 ml PRN AFTMEALHC PRN PO DYSPEPSIA 05/28/20 12:00 UNV Memantine (Namenda) 10 mg BID PO 05/28/20 21:00 05/28/20 21:57 DC Olanzapine (ZyPREXA ZYDIS) 2.5 mg PRN Q2HRS PRN PO PSYCHOSIS 05/28/20 12:00 05/28/20 21:57 DC Quetiapine Fumarate (SEROquel) 25 mg BID92 PO 05/28/20 14:00 06/03/20 16:18 DC 06/03/20 08:37 Quetiapine Fumarate (SEROquel) 50 mg BID92 PO 05/28/20 14:00 05/31/20 13:24 DC 05/31/20 08:28 Quetiapine Fumarate (SEROquel) 100 mg QHS PO 05/28/20 21:00 05/31/20 13:24 DC 05/30/20 21:50 Sertraline HCl (Zoloft) 100 mg DAILY PO 05/29/20 09:00 06/05/20 20:01 DC 06/05/20 08:16 Tizanidine HCl (Zanaflex) 4 mg PRN Q8HRS PRN PO MUSCLE SPASMS 05/28/20 12:00 06/02/20 03:23 Trazodone HCl (Desyrel) 100 mg PRN QHS PRN PO INSOMNIA, MAY REPEAT X1 05/28/20 12:00 06/07/20 11:49 DC 06/04/20 20:46 Atorvastatin Calcium (Lipitor) 40 mg QHS PO 05/28/20 21:00 06/10/20 19:03 Magnesium Hydroxide (Milk Of Magnesia) 2,400 mg PRN QHS PRN PO 1ST CHOICE CONSTIPATION 05/28/20 12:45 Multi-Ingredient Ointment (Analgesic [place]) 1 wendy PRN QID PRN TP MUSCLE PAIN 05/28/20 12:45 Al Hydroxide/Mg Hydroxide (Mylanta Plus Xs) 15 ml PRN AFTMEALHC PRN PO DYSPEPSIA 05/28/20 12:30 Olanzapine (ZyPREXA ZYDIS) 5 mg PRN Q2HRS PRN PO PSYCHOSIS 05/28/20 22:00 06/11/20 00:27 Divalproex Sodium (Depakote Sprinkles) 125 mg TID@0900,1300,1700 PO 05/29/20 09:00 05/29/20 18:06 DC Lorazepam (Ativan) 1.5 mg QHS PO 05/29/20 21:00 05/31/20 21:01 DC 05/30/20 21:50 Lorazepam (Ativan) 1 mg QHS PO 06/01/20 21:00 06/03/20 21:01 DC 06/03/20 20:56 Lorazepam (Ativan) 0.5 mg QHS PO 06/04/20 21:00 06/06/20 21:01 DC 06/06/20 21:19 Vitamin D (Vitamin D3) 50,000 unit WEEKLY PO 05/29/20 16:00 05/29/20 17:50 DC Levothyroxine Sodium (Synthroid) 25 mcg DAILY06 PO 05/30/20 06:00 06/11/20 05:15 Vitamin D (Vitamin D3) 50,000 unit WEEKLY PO 05/30/20 09:00 06/06/20 08:05 Buspirone HCl (Buspar) 5 mg 0900,1700 PO 05/31/20 09:00 06/07/20 11:49 DC 06/07/20 08:15 Quetiapine Fumarate (SEROquel) 50 mg QHS PO 05/31/20 21:00 06/07/20 11:49 DC 06/06/20 21:18 Quetiapine Fumarate (SEROquel) 25 mg DAILY PO 06/04/20 09:00 06/04/20 17:34 DC 06/04/20 09:06 Quetiapine Fumarate (SEROquel) 12.5 mg 0900,1200,1500,1700 PO 06/05/20 09:00 06/07/20 11:49 DC 06/07/20 08:15 Bupropion HCl (Wellbutrin) 75 mg 0900,1200 PO 06/06/20 09:00 06/10/20 11:07 Dextrose 1,000 ml @ 100 mls/hr Q10H IV 06/07/20 17:45 06/11/20 01:45 I have reviewed the current psychotropics carefully including drug interactions. Risk benefit ratio favors no change other than as noted in my dictated progress note. Diagnosis: Problems: (1) Anxiety disorder, unspecified (2) Dementia, vascular, with depression (3) Dementia, vascular, with delusions (4) Dementia in Alzheimer's disease with depression (5) Dementia in Alzheimer's disease with delusions (6) Dementia of the Alzheimer's type with early onset with behavioral disturbance (7) Major neurocognitive disorder, due to vascular disease, with behavioral disturbance, mild NORMA AYALA MD Jun 11, 2020 07:16
--- NOTE | 2020-06-11 07:48 | PDOC ---
Exam Note: Danielito Note: This note is a late entry for 06/08/2020 covers elements not covered in my initial note. Subjective: The patient was seen face to face in the evening of 06/08/2020 with Abena SWENSON, discussed and reviewed the chart. The patient slept 7 hours previous night. Overall the patient remains sedated but less so than before. CT head shows volume loss and microvascular disease. The patients labs shows dehydration and Dr. Salcedo has him on IV fluids. At times he is a little less sedated. Abena SWENSON did discuss the patients progress with the daughter reportedly. Review of Systems: No CV, , pulmonary, eye, ENT system symptoms on review. Mental Status Exam: The patient is oriented to himself. Insight and judgment, recent and remote memory, attention and concentration, fund of knowledge is poor consistent with his diagnosis. Laboratory Data: Reviewed. Impression: Major neurocognitive disorder Alzheimer vascular with delusion, depression, behavioral disturbance. Anxiety disorder unspecified. Impulse control disorder unspecified. Plan: No change from initial note. Assessment: Vital Signs/I&O: Vital Signs Date Time Temp Pulse Resp B/P (MAP) Pulse Ox O2 Delivery O2 Flow Rate FiO2 06/11/20 06:32 97.9 77 22 137/83 (101) 95 Room Air I & O 06/10/20 06/10/20 06/11/20 15:00 23:00 07:00 Intake Total 480 ml 380 ml 0 ml Balance 480 ml 380 ml 0 ml Labs: Laboratory Tests Test 06/10/20 10:00 Sodium Level 140 mmol/L (136-145) Potassium Level 3.7 mmol/L (3.5-5.1) Chloride Level 104 mmol/L (98-107) Carbon Dioxide Level 28 mmol/L (21-32) Anion Gap 8 (6-14) Blood Urea Nitrogen 30 mg/dL (8-26) H Creatinine 1.4 mg/dL (0.7-1.3) H Estimated GFR (Cockcroft-Gault) 48.9 BUN/Creatinine Ratio 21 (6-20) H Glucose Level 97 mg/dL (70-99) Calcium Level 8.6 mg/dL (8.5-10.1) Total Bilirubin 0.5 mg/dL (0.2-1.0) Aspartate Amino Transferase (AST) 33 U/L (15-37) Alanine Aminotransferase (ALT) 58 U/L (16-63) Alkaline Phosphatase 113 U/L (46-116) Total Protein 7.1 g/dL (6.4-8.2) Albumin 2.3 g/dL (3.4-5.0) L Albumin/Globulin Ratio 0.5 (1.0-1.7) L Current Medications: Meds: Laboratory Tests Test 06/10/20 10:00 Sodium Level 140 mmol/L Potassium Level 3.7 mmol/L Chloride Level 104 mmol/L Carbon Dioxide Level 28 mmol/L Anion Gap 8 Blood Urea Nitrogen 30 mg/dL Creatinine 1.4 mg/dL Estimated GFR (Cockcroft-Gault) 48.9 BUN/Creatinine Ratio 21 Glucose Level 97 mg/dL Calcium Level 8.6 mg/dL Total Bilirubin 0.5 mg/dL Aspartate Amino Transf (AST/SGOT) 33 U/L Alanine Aminotransferase (ALT/SGPT) 58 U/L Alkaline Phosphatase 113 U/L Total Protein 7.1 g/dL Albumin 2.3 g/dL Albumin/Globulin Ratio 0.5 Current Medications Medications (Trade) Dose Ordered Sig/Abdifatah Route PRN Reason Start Time Stop Time Status Last Admin Dose Admin Acetaminophen (Tylenol) 500 mg PRN Q6HRS PRN PO pain or fever 05/28/20 12:00 06/07/20 13:22 Aspirin (Aspirin Chewable) 81 mg DAILY PO 05/29/20 09:00 06/10/20 08:11 Bisacodyl (Dulcolax Tab) 5 mg PRN DAILY PRN PO 2ND CHOICE CONSTIPATION 05/28/20 12:00 Calcium Carbonate/ Glycine (Tums) 500 mg BID PO 05/28/20 21:00 06/10/20 19:02 Lorazepam (Ativan) 2 mg QHS PO 05/28/20 21:00 05/28/20 22:01 DC 05/28/20 20:37 Al Hydroxide/Mg Hydroxide (Mylanta Plus Xs) 15 ml PRN AFTMEALHC PRN PO DYSPEPSIA 05/28/20 12:00 UNV Memantine (Namenda) 10 mg BID PO 05/28/20 21:00 05/28/20 21:57 DC Olanzapine (ZyPREXA ZYDIS) 2.5 mg PRN Q2HRS PRN PO PSYCHOSIS 05/28/20 12:00 05/28/20 21:57 DC Quetiapine Fumarate (SEROquel) 25 mg BID92 PO 05/28/20 14:00 06/03/20 16:18 DC 06/03/20 08:37 Quetiapine Fumarate (SEROquel) 50 mg BID92 PO 05/28/20 14:00 05/31/20 13:24 DC 05/31/20 08:28 Quetiapine Fumarate (SEROquel) 100 mg QHS PO 05/28/20 21:00 05/31/20 13:24 DC 05/30/20 21:50 Sertraline HCl (Zoloft) 100 mg DAILY PO 05/29/20 09:00 06/05/20 20:01 DC 06/05/20 08:16 Tizanidine HCl (Zanaflex) 4 mg PRN Q8HRS PRN PO MUSCLE SPASMS 05/28/20 12:00 06/02/20 03:23 Trazodone HCl (Desyrel) 100 mg PRN QHS PRN PO INSOMNIA, MAY REPEAT X1 05/28/20 12:00 06/07/20 11:49 DC 06/04/20 20:46 Atorvastatin Calcium (Lipitor) 40 mg QHS PO 05/28/20 21:00 06/10/20 19:03 Magnesium Hydroxide (Milk Of Magnesia) 2,400 mg PRN QHS PRN PO 1ST CHOICE CONSTIPATION 05/28/20 12:45 Multi-Ingredient Ointment (Analgesic [place]) 1 wendy PRN QID PRN TP MUSCLE PAIN 05/28/20 12:45 Al Hydroxide/Mg Hydroxide (Mylanta Plus Xs) 15 ml PRN AFTMEALHC PRN PO DYSPEPSIA 05/28/20 12:30 Olanzapine (ZyPREXA ZYDIS) 5 mg PRN Q2HRS PRN PO PSYCHOSIS 05/28/20 22:00 06/11/20 00:27 Divalproex Sodium (Depakote Sprinkles) 125 mg TID@0900,1300,1700 PO 05/29/20 09:00 05/29/20 18:06 DC Lorazepam (Ativan) 1.5 mg QHS PO 05/29/20 21:00 05/31/20 21:01 DC 05/30/20 21:50 Lorazepam (Ativan) 1 mg QHS PO 06/01/20 21:00 06/03/20 21:01 DC 06/03/20 20:56 Lorazepam (Ativan) 0.5 mg QHS PO 06/04/20 21:00 06/06/20 21:01 DC 06/06/20 21:19 Vitamin D (Vitamin D3) 50,000 unit WEEKLY PO 05/29/20 16:00 05/29/20 17:50 DC Levothyroxine Sodium (Synthroid) 25 mcg DAILY06 PO 05/30/20 06:00 06/11/20 05:15 Vitamin D (Vitamin D3) 50,000 unit WEEKLY PO 05/30/20 09:00 06/06/20 08:05 Buspirone HCl (Buspar) 5 mg 0900,1700 PO 05/31/20 09:00 06/07/20 11:49 DC 06/07/20 08:15 Quetiapine Fumarate (SEROquel) 50 mg QHS PO 05/31/20 21:00 06/07/20 11:49 DC 06/06/20 21:18 Quetiapine Fumarate (SEROquel) 25 mg DAILY PO 06/04/20 09:00 06/04/20 17:34 DC 06/04/20 09:06 Quetiapine Fumarate (SEROquel) 12.5 mg 0900,1200,1500,1700 PO 06/05/20 09:00 06/07/20 11:49 DC 06/07/20 08:15 Bupropion HCl (Wellbutrin) 75 mg 0900,1200 PO 06/06/20 09:00 06/10/20 11:07 Dextrose 1,000 ml @ 100 mls/hr Q10H IV 06/07/20 17:45 06/11/20 01:45 I have reviewed the current psychotropics carefully including drug interactions. Risk benefit ratio favors no change other than as noted in my dictated progress note. Diagnosis: Problems: (1) Anxiety disorder, unspecified (2) Dementia, vascular, with depression (3) Dementia, vascular, with delusions (4) Dementia in Alzheimer's disease with depression (5) Dementia in Alzheimer's disease with delusions (6) Dementia of the Alzheimer's type with early onset with behavioral disturbance (7) Major neurocognitive disorder, due to vascular disease, with behavioral disturbance, mild NORMA AYALA MD Jun 11, 2020 07:48
--- NOTE | 2020-06-11 08:17 | PDOC ---
Exam Note: Danielito Note: This note is a late entry for 06/09/2020 covers elements not covered in my initial note. Subjective: The patient was seen face to face in the evening of 06/09/2020 with Abena SWENSON, discussed and reviewed the chart. The patient slept 4-1/4 hours previous night. He has been more awake at lunchtime and nursing aid Kailyn fed him lunch and he ate reasonably well. He is somewhat restless after lunch. Abena SWENSON reportedly talked with Dr. Leung today before as well to update him on the patients progress, seek advice on any specific interventions Dr. Leung would recommend to incorporate that as part of the patients treatment plan. Review of Systems: No CV, , pulmonary, eye, ENT system symptoms on review. Mental Status Exam: The patient is oriented to himself. Insight and judgment, recent and remote memory, attention and concentration, fund of knowledge is poor consistent with his diagnosis. Laboratory Data: Reviewed. Impression: Major neurocognitive disorder Alzheimer vascular with delusion, depression, behavioral disturbance. Anxiety disorder unspecified. Impulse control disorder unspecified. Plan: Continue the IV fluids per Dr. Salcedo. Maintain him off all psychotropics for now. Make further adjustments as clinically indicated. Assessment: Vital Signs/I&O: Vital Signs Date Time Temp Pulse Resp B/P (MAP) Pulse Ox O2 Delivery O2 Flow Rate FiO2 06/11/20 06:32 97.9 77 22 137/83 (101) 95 Room Air I & O 06/10/20 06/10/20 06/11/20 15:00 23:00 07:00 Intake Total 480 ml 380 ml 0 ml Balance 480 ml 380 ml 0 ml Labs: Laboratory Tests Test 06/10/20 10:00 Sodium Level 140 mmol/L (136-145) Potassium Level 3.7 mmol/L (3.5-5.1) Chloride Level 104 mmol/L (98-107) Carbon Dioxide Level 28 mmol/L (21-32) Anion Gap 8 (6-14) Blood Urea Nitrogen 30 mg/dL (8-26) H Creatinine 1.4 mg/dL (0.7-1.3) H Estimated GFR (Cockcroft-Gault) 48.9 BUN/Creatinine Ratio 21 (6-20) H Glucose Level 97 mg/dL (70-99) Calcium Level 8.6 mg/dL (8.5-10.1) Total Bilirubin 0.5 mg/dL (0.2-1.0) Aspartate Amino Transferase (AST) 33 U/L (15-37) Alanine Aminotransferase (ALT) 58 U/L (16-63) Alkaline Phosphatase 113 U/L (46-116) Total Protein 7.1 g/dL (6.4-8.2) Albumin 2.3 g/dL (3.4-5.0) L Albumin/Globulin Ratio 0.5 (1.0-1.7) L Current Medications: Meds: Laboratory Tests Test 06/10/20 10:00 Sodium Level 140 mmol/L Potassium Level 3.7 mmol/L Chloride Level 104 mmol/L Carbon Dioxide Level 28 mmol/L Anion Gap 8 Blood Urea Nitrogen 30 mg/dL Creatinine 1.4 mg/dL Estimated GFR (Cockcroft-Gault) 48.9 BUN/Creatinine Ratio 21 Glucose Level 97 mg/dL Calcium Level 8.6 mg/dL Total Bilirubin 0.5 mg/dL Aspartate Amino Transf (AST/SGOT) 33 U/L Alanine Aminotransferase (ALT/SGPT) 58 U/L Alkaline Phosphatase 113 U/L Total Protein 7.1 g/dL Albumin 2.3 g/dL Albumin/Globulin Ratio 0.5 Current Medications Medications (Trade) Dose Ordered Sig/Abdifatah Route PRN Reason Start Time Stop Time Status Last Admin Dose Admin Acetaminophen (Tylenol) 500 mg PRN Q6HRS PRN PO pain or fever 05/28/20 12:00 06/07/20 13:22 Aspirin (Aspirin Chewable) 81 mg DAILY PO 05/29/20 09:00 06/10/20 08:11 Bisacodyl (Dulcolax Tab) 5 mg PRN DAILY PRN PO 2ND CHOICE CONSTIPATION 05/28/20 12:00 Calcium Carbonate/ Glycine (Tums) 500 mg BID PO 05/28/20 21:00 06/10/20 19:02 Lorazepam (Ativan) 2 mg QHS PO 05/28/20 21:00 05/28/20 22:01 DC 05/28/20 20:37 Al Hydroxide/Mg Hydroxide (Mylanta Plus Xs) 15 ml PRN AFTMEALHC PRN PO DYSPEPSIA 05/28/20 12:00 UNV Memantine (Namenda) 10 mg BID PO 05/28/20 21:00 05/28/20 21:57 DC Olanzapine (ZyPREXA ZYDIS) 2.5 mg PRN Q2HRS PRN PO PSYCHOSIS 05/28/20 12:00 05/28/20 21:57 DC Quetiapine Fumarate (SEROquel) 25 mg BID92 PO 05/28/20 14:00 06/03/20 16:18 DC 06/03/20 08:37 Quetiapine Fumarate (SEROquel) 50 mg BID92 PO 05/28/20 14:00 05/31/20 13:24 DC 05/31/20 08:28 Quetiapine Fumarate (SEROquel) 100 mg QHS PO 05/28/20 21:00 05/31/20 13:24 DC 05/30/20 21:50 Sertraline HCl (Zoloft) 100 mg DAILY PO 05/29/20 09:00 06/05/20 20:01 DC 06/05/20 08:16 Tizanidine HCl (Zanaflex) 4 mg PRN Q8HRS PRN PO MUSCLE SPASMS 05/28/20 12:00 06/02/20 03:23 Trazodone HCl (Desyrel) 100 mg PRN QHS PRN PO INSOMNIA, MAY REPEAT X1 05/28/20 12:00 06/07/20 11:49 DC 06/04/20 20:46 Atorvastatin Calcium (Lipitor) 40 mg QHS PO 05/28/20 21:00 06/10/20 19:03 Magnesium Hydroxide (Milk Of Magnesia) 2,400 mg PRN QHS PRN PO 1ST CHOICE CONSTIPATION 05/28/20 12:45 Multi-Ingredient Ointment (Analgesic [place]) 1 wendy PRN QID PRN TP MUSCLE PAIN 05/28/20 12:45 Al Hydroxide/Mg Hydroxide (Mylanta Plus Xs) 15 ml PRN AFTMEALHC PRN PO DYSPEPSIA 05/28/20 12:30 Olanzapine (ZyPREXA ZYDIS) 5 mg PRN Q2HRS PRN PO PSYCHOSIS 05/28/20 22:00 06/11/20 00:27 Divalproex Sodium (Depakote Sprinkles) 125 mg TID@0900,1300,1700 PO 05/29/20 09:00 05/29/20 18:06 DC Lorazepam (Ativan) 1.5 mg QHS PO 05/29/20 21:00 05/31/20 21:01 DC 05/30/20 21:50 Lorazepam (Ativan) 1 mg QHS PO 06/01/20 21:00 06/03/20 21:01 DC 06/03/20 20:56 Lorazepam (Ativan) 0.5 mg QHS PO 06/04/20 21:00 06/06/20 21:01 DC 06/06/20 21:19 Vitamin D (Vitamin D3) 50,000 unit WEEKLY PO 05/29/20 16:00 05/29/20 17:50 DC Levothyroxine Sodium (Synthroid) 25 mcg DAILY06 PO 05/30/20 06:00 06/11/20 05:15 Vitamin D (Vitamin D3) 50,000 unit WEEKLY PO 05/30/20 09:00 06/06/20 08:05 Buspirone HCl (Buspar) 5 mg 0900,1700 PO 05/31/20 09:00 06/07/20 11:49 DC 06/07/20 08:15 Quetiapine Fumarate (SEROquel) 50 mg QHS PO 05/31/20 21:00 06/07/20 11:49 DC 06/06/20 21:18 Quetiapine Fumarate (SEROquel) 25 mg DAILY PO 06/04/20 09:00 06/04/20 17:34 DC 06/04/20 09:06 Quetiapine Fumarate (SEROquel) 12.5 mg 0900,1200,1500,1700 PO 06/05/20 09:00 06/07/20 11:49 DC 06/07/20 08:15 Bupropion HCl (Wellbutrin) 75 mg 0900,1200 PO 06/06/20 09:00 06/10/20 11:07 Dextrose 1,000 ml @ 100 mls/hr Q10H IV 06/07/20 17:45 06/11/20 01:45 I have reviewed the current psychotropics carefully including drug interactions. Risk benefit ratio favors no change other than as noted in my dictated progress note. Diagnosis: Problems: (1) Anxiety disorder, unspecified (2) Dementia, vascular, with depression (3) Dementia, vascular, with delusions (4) Dementia in Alzheimer's disease with depression (5) Dementia in Alzheimer's disease with delusions (6) Dementia of the Alzheimer's type with early onset with behavioral disturbance (7) Major neurocognitive disorder, due to vascular disease, with behavioral disturbance, mild NORMA AYALA MD Jun 11, 2020 08:17
--- NOTE | 2020-06-11 08:40 | PDOC ---
Exam Note: Danielito Note: This note is a late entry for 06/10/2020 covers elements not covered in my initial note. Subjective: The patient was seen face to face in the evening of 06/10/2020 with Abena SWENSON, discussed and reviewed the chart. The patient slept 9-3/4 hours previous night. Overall the patient has been little more awake today. Nursing staff assisted him in feeding lunch but after that he was sedated once again. He remains on IV fluids. Additionally per nursing report, he has had some left- sided pain. No fracture on x-ray but CT chest and abdomen are being pursued by Dr. Salcedo. The patient is not forthcoming today because of his confusion but he guards his left side has been worked up and possible post-herpetic neuralgia is nothing has determined. Review of Systems: No CV, , pulmonary, eye, ENT system symptoms on review. Mental Status Exam: The patient is oriented to himself. Insight and judgment, recent and remote memory, attention and concentration, fund of knowledge is poor consistent with his diagnosis. Laboratory Data: Reviewed. Impression: Major neurocognitive disorder Alzheimer vascular with delusion, depression, behavioral disturbance. Anxiety disorder unspecified. Impulse con trol disorder unspecified. Plan: Given the patients chronic pain, Dr. Salcedo wandered whether Cymbalta could be used. We will defer to Dr. Salcedo and if Cymbalta is started, Wellbutrin could be stopped. Continue IV hydration. Maintain rest of the psychotropics unchanged for now and we will stop all his sedating psychotropics. Assessment: Vital Signs/I&O: Vital Signs Date Time Temp Pulse Resp B/P (MAP) Pulse Ox O2 Delivery O2 Flow Rate FiO2 06/11/20 06:32 97.9 77 22 137/83 (101) 95 Room Air I & O 06/10/20 06/10/20 06/11/20 15:00 23:00 07:00 Intake Total 480 ml 380 ml 0 ml Balance 480 ml 380 ml 0 ml Labs: Laboratory Tests Test 06/10/20 10:00 Sodium Level 140 mmol/L (136-145) Potassium Level 3.7 mmol/L (3.5-5.1) Chloride Level 104 mmol/L (98-107) Carbon Dioxide Level 28 mmol/L (21-32) Anion Gap 8 (6-14) Blood Urea Nitrogen 30 mg/dL (8-26) H Creatinine 1.4 mg/dL (0.7-1.3) H Estimated GFR (Cockcroft-Gault) 48.9 BUN/Creatinine Ratio 21 (6-20) H Glucose Level 97 mg/dL (70-99) Calcium Level 8.6 mg/dL (8.5-10.1) Total Bilirubin 0.5 mg/dL (0.2-1.0) Aspartate Amino Transferase (AST) 33 U/L (15-37) Alanine Aminotransferase (ALT) 58 U/L (16-63) Alkaline Phosphatase 113 U/L (46-116) Total Protein 7.1 g/dL (6.4-8.2) Albumin 2.3 g/dL (3.4-5.0) L Albumin/Globulin Ratio 0.5 (1.0-1.7) L Current Medications: Meds: Laboratory Tests Test 06/10/20 10:00 Sodium Level 140 mmol/L Potassium Level 3.7 mmol/L Chloride Level 104 mmol/L Carbon Dioxide Level 28 mmol/L Anion Gap 8 Blood Urea Nitrogen 30 mg/dL Creatinine 1.4 mg/dL Estimated GFR (Cockcroft-Gault) 48.9 BUN/Creatinine Ratio 21 Glucose Level 97 mg/dL Calcium Level 8.6 mg/dL Total Bilirubin 0.5 mg/dL Aspartate Amino Transf (AST/SGOT) 33 U/L Alanine Aminotransferase (ALT/SGPT) 58 U/L Alkaline Phosphatase 113 U/L Total Protein 7.1 g/dL Albumin 2.3 g/dL Albumin/Globulin Ratio 0.5 Current Medications Medications (Trade) Dose Ordered Sig/Abdifatah Route PRN Reason Start Time Stop Time Status Last Admin Dose Admin Acetaminophen (Tylenol) 500 mg PRN Q6HRS PRN PO pain or fever 05/28/20 12:00 06/07/20 13:22 Aspirin (Aspirin Chewable) 81 mg DAILY PO 05/29/20 09:00 06/10/20 08:11 Bisacodyl (Dulcolax Tab) 5 mg PRN DAILY PRN PO 2ND CHOICE CONSTIPATION 05/28/20 12:00 Calcium Carbonate/ Glycine (Tums) 500 mg BID PO 05/28/20 21:00 06/10/20 19:02 Lorazepam (Ativan) 2 mg QHS PO 05/28/20 21:00 05/28/20 22:01 DC 05/28/20 20:37 Al Hydroxide/Mg Hydroxide (Mylanta Plus Xs) 15 ml PRN AFTMEALHC PRN PO DYSPEPSIA 05/28/20 12:00 UNV Memantine (Namenda) 10 mg BID PO 05/28/20 21:00 05/28/20 21:57 DC Olanzapine (ZyPREXA ZYDIS) 2.5 mg PRN Q2HRS PRN PO PSYCHOSIS 05/28/20 12:00 05/28/20 21:57 DC Quetiapine Fumarate (SEROquel) 25 mg BID92 PO 05/28/20 14:00 06/03/20 16:18 DC 06/03/20 08:37 Quetiapine Fumarate (SEROquel) 50 mg BID92 PO 05/28/20 14:00 05/31/20 13:24 DC 05/31/20 08:28 Quetiapine Fumarate (SEROquel) 100 mg QHS PO 05/28/20 21:00 05/31/20 13:24 DC 05/30/20 21:50 Sertraline HCl (Zoloft) 100 mg DAILY PO 05/29/20 09:00 06/05/20 20:01 DC 06/05/20 08:16 Tizanidine HCl (Zanaflex) 4 mg PRN Q8HRS PRN PO MUSCLE SPASMS 05/28/20 12:00 06/02/20 03:23 Trazodone HCl (Desyrel) 100 mg PRN QHS PRN PO INSOMNIA, MAY REPEAT X1 05/28/20 12:00 06/07/20 11:49 DC 06/04/20 20:46 Atorvastatin Calcium (Lipitor) 40 mg QHS PO 05/28/20 21:00 06/10/20 19:03 Magnesium Hydroxide (Milk Of Magnesia) 2,400 mg PRN QHS PRN PO 1ST CHOICE CONSTIPATION 05/28/20 12:45 Multi-Ingredient Ointment (Analgesic [place]) 1 wendy PRN QID PRN TP MUSCLE PAIN 05/28/20 12:45 Al Hydroxide/Mg Hydroxide (Mylanta Plus Xs) 15 ml PRN AFTMEALHC PRN PO DYSPEPSIA 05/28/20 12:30 Olanzapine (ZyPREXA ZYDIS) 5 mg PRN Q2HRS PRN PO PSYCHOSIS 05/28/20 22:00 06/11/20 00:27 Divalproex Sodium (Depakote Sprinkles) 125 mg TID@0900,1300,1700 PO 05/29/20 09:00 05/29/20 18:06 DC Lorazepam (Ativan) 1.5 mg QHS PO 05/29/20 21:00 05/31/20 21:01 DC 05/30/20 21:50 Lorazepam (Ativan) 1 mg QHS PO 06/01/20 21:00 06/03/20 21:01 DC 06/03/20 20:56 Lorazepam (Ativan) 0.5 mg QHS PO 06/04/20 21:00 06/06/20 21:01 DC 06/06/20 21:19 Vitamin D (Vitamin D3) 50,000 unit WEEKLY PO 05/29/20 16:00 05/29/20 17:50 DC Levothyroxine Sodium (Synthroid) 25 mcg DAILY06 PO 05/30/20 06:00 06/11/20 05:15 Vitamin D (Vitamin D3) 50,000 unit WEEKLY PO 05/30/20 09:00 06/06/20 08:05 Buspirone HCl (Buspar) 5 mg 0900,1700 PO 05/31/20 09:00 06/07/20 11:49 DC 06/07/20 08:15 Quetiapine Fumarate (SEROquel) 50 mg QHS PO 05/31/20 21:00 06/07/20 11:49 DC 06/06/20 21:18 Quetiapine Fumarate (SEROquel) 25 mg DAILY PO 06/04/20 09:00 06/04/20 17:34 DC 06/04/20 09:06 Quetiapine Fumarate (SEROquel) 12.5 mg 0900,1200,1500,1700 PO 06/05/20 09:00 06/07/20 11:49 DC 06/07/20 08:15 Bupropion HCl (Wellbutrin) 75 mg 0900,1200 PO 06/06/20 09:00 06/10/20 11:07 Dextrose 1,000 ml @ 100 mls/hr Q10H IV 06/07/20 17:45 06/11/20 01:45 I have reviewed the current psychotropics carefully including drug interactions. Risk benefit ratio favors no change other than as noted in my dictated progress note. Diagnosis: Problems: (1) Anxiety disorder, unspecified (2) Dementia, vascular, with depression (3) Dementia, vascular, with delusions (4) Dementia in Alzheimer's disease with depression (5) Dementia in Alzheimer's disease with delusions (6) Dementia of the Alzheimer's type with early onset with behavioral dist urbance (7) Major neurocognitive disorder, due to vascular disease, with behavioral disturbance, mild NORMA AYALA MD Jun 11, 2020 08:40
[2020-06-11] MEDS: buPROPion 75 MG TABLET PO SCH ×2 (09:00→14:05)
[2020-06-11] MEDS: ASPIRIN CHEWABLE 81 MG TABLET. PO SCH (09:00)
[2020-06-11] MEDS: CALCIUM CARBONATE 500 MG TAB.CHEW PO SCH ×2 (09:00→21:33)
--- NOTE | 2020-06-11 12:07 | NUR ---
See downtime med rec for am medication administration.
[2020-06-11 16:13] VITALS: BP 134/80
--- NOTE | 2020-06-11 17:12 | NUR ---
Pt has been in bed for the entire shift. He has has brief periods of being awake and would go back to sleep. During awake periods he was non-verbal with staff. He is complaint with medications in applesauce. His IV in L hand has been d/c and a new IV 24 g in L FA has been started by this nurse after 2 attempts. D5W currently infusing at 100 mL/hr. Pt currently has a mitt on the R hand to prevent intentional/accidental self removal of IV. Pt tolerated insertion poorly; he required multiple staff members to hold his arm/hand to prevent him from interfering or interrupting process. Will pass to the next shift.
--- NOTE | 2020-06-11 18:13 | NUR ---
While assessing applicable IV sites on pt's bilat FA this nurse noticed pt's R FA to be red, warm to touch, and hard to palpation. Dr Salcedo notified, orders given for Rocephin 1 G IM now one time for possible cellulitis.
[2020-06-11] MEDS ORDERED: cefTRIAXone IM 1 GM VIAL IM ONE (18:30)
--- NOTE | 2020-06-11 21:08 | PDOC ---
Exam Note: Danielito Note: Please also refer to the separate dictated note~for this date of service dictated separately.~Patient seen individually. Discussed the patient with Nursing staff reviewed the chart.~Reviewed interim history and current functioning. Reviewed vital signs,~Labs/ Radiology~and current medications noted below. Continue current treatment with the changes noted in the dictated addendum note Assessment: Vital Signs/I&O: Vital Signs Date Time Temp Pulse Resp B/P (MAP) Pulse Ox O2 Delivery O2 Flow Rate FiO2 06/11/20 16:13 98.4 76 16 134/80 (98) 91 06/11/20 06:32 Room Air I & O 06/10/20 06/10/20 06/11/20 15:00 23:00 07:00 Intake Total 480 ml 380 ml 0 ml Balance 480 ml 380 ml 0 ml Current Medications: Meds: Current Medications Medications (Trade) Dose Ordered Sig/Abdifatah Route PRN Reason Start Time Stop Time Status Last Admin Dose Admin Acetaminophen (Tylenol) 500 mg PRN Q6HRS PRN PO pain or fever 05/28/20 12:00 06/07/20 13:22 Aspirin (Aspirin Chewable) 81 mg DAILY PO 05/29/20 09:00 06/10/20 08:11 Bisacodyl (Dulcolax Tab) 5 mg PRN DAILY PRN PO 2ND CHOICE CONSTIPATION 05/28/20 12:00 Calcium Carbonate/ Glycine (Tums) 500 mg BID PO 05/28/20 21:00 06/10/20 19:02 Lorazepam (Ativan) 2 mg QHS PO 05/28/20 21:00 05/28/20 22:01 DC 05/28/20 20:37 Al Hydroxide/Mg Hydroxide (Mylanta Plus Xs) 15 ml PRN AFTMEALHC PRN PO DYSPEPSIA 05/28/20 12:00 UNV Memantine (Namenda) 10 mg BID PO 05/28/20 21:00 05/28/20 21:57 DC Olanzapine (ZyPREXA ZYDIS) 2.5 mg PRN Q2HRS PRN PO PSYCHOSIS 05/28/20 12:00 05/28/20 21:57 DC Quetiapine Fumarate (SEROquel) 25 mg BID92 PO 05/28/20 14:00 06/03/20 16:18 DC 06/03/20 08:37 Quetiapine Fumarate (SEROquel) 50 mg BID92 PO 05/28/20 14:00 05/31/20 13:24 DC 05/31/20 08:28 Quetiapine Fumarate (SEROquel) 100 mg QHS PO 05/28/20 21:00 05/31/20 13:24 DC 05/30/20 21:50 Sertraline HCl (Zoloft) 100 mg DAILY PO 05/29/20 09:00 06/05/20 20:01 DC 06/05/20 08:16 Tizanidine HCl (Zanaflex) 4 mg PRN Q8HRS PRN PO MUSCLE SPASMS 05/28/20 12:00 06/02/20 03:23 Trazodone HCl (Desyrel) 100 mg PRN QHS PRN PO INSOMNIA, MAY REPEAT X1 05/28/20 12:00 06/07/20 11:49 DC 06/04/20 20:46 Atorvastatin Calcium (Lipitor) 40 mg QHS PO 05/28/20 21:00 06/10/20 19:03 Magnesium Hydroxide (Milk Of Magnesia) 2,400 mg PRN QHS PRN PO 1ST CHOICE CONSTIPATION 05/28/20 12:45 Multi-Ingredient Ointment (Analgesic [place]) 1 wendy PRN QID PRN TP MUSCLE PAIN 05/28/20 12:45 Al Hydroxide/Mg Hydroxide (Mylanta Plus Xs) 15 ml PRN AFTMEALHC PRN PO DYSPEPSIA 05/28/20 12:30 Olanzapine (ZyPREXA ZYDIS) 5 mg PRN Q2HRS PRN PO PSYCHOSIS 05/28/20 22:00 06/11/20 00:27 Divalproex Sodium (Depakote Sprinkles) 125 mg TID@0900,1300,1700 PO 05/29/20 09:00 05/29/20 18:06 DC Lorazepam (Ativan) 1.5 mg QHS PO 05/29/20 21:00 05/31/20 21:01 DC 05/30/20 21:50 Lorazepam (Ativan) 1 mg QHS PO 06/01/20 21:00 06/03/20 21:01 DC 06/03/20 20:56 Lorazepam (Ativan) 0.5 mg QHS PO 06/04/20 21:00 06/06/20 21:01 DC 06/06/20 21:19 Vitamin D (Vitamin D3) 50,000 unit WEEKLY PO 05/29/20 16:00 05/29/20 17:50 DC Levothyroxine Sodium (Synthroid) 25 mcg DAILY06 PO 05/30/20 06:00 06/11/20 05:15 Vitamin D (Vitamin D3) 50,000 unit WEEKLY PO 05/30/20 09:00 06/06/20 08:05 Buspirone HCl (Buspar) 5 mg 0900,1700 PO 05/31/20 09:00 06/07/20 11:49 DC 06/07/20 08:15 Quetiapine Fumarate (SEROquel) 50 mg QHS PO 05/31/20 21:00 06/07/20 11:49 DC 06/06/20 21:18 Quetiapine Fumarate (SEROquel) 25 mg DAILY PO 06/04/20 09:00 06/04/20 17:34 DC 06/04/20 09:06 Quetiapine Fumarate (SEROquel) 12.5 mg 0900,1200,1500,1700 PO 06/05/20 09:00 06/07/20 11:49 DC 06/07/20 08:15 Bupropion HCl (Wellbutrin) 75 mg 0900,1200 PO 06/06/20 09:00 06/11/20 17:25 DC 06/11/20 14:05 Dextrose 1,000 ml @ 100 mls/hr Q10H IV 06/07/20 17:45 06/11/20 11:45 Ceftriaxone Sodium (Rocephin Im) 1 gm 1X ONCE IM 06/11/20 18:30 06/11/20 18:31 DC 06/11/20 18:30 Current Medications Medications (Trade) Dose Ordered Sig/Abdifatah Route PRN Reason Start Time Stop Time Status Last Admin Dose Admin Ceftriaxone Sodium (Rocephin Im) 1 gm 1X ONCE IM 06/11/20 18:30 06/11/20 18:31 DC 06/11/20 18:30 I have reviewed the current psychotropics carefully including drug interactions. Risk benefit ratio favors no change other than as noted in my dictated progress note. Diagnosis: Problems: (1) Anxiety disorder, unspecified (2) Dementia, vascular, with depression (3) Dementia, vascular, with delusions (4) Dementia in Alzheimer's disease with depression (5) Dementia in Alzheimer's disease with delusions (6) Dementia of the Alzheimer's type with early onset with behavioral disturbance (7) Major neurocognitive disorder, due to vascular disease, with behavioral d isturbance, mild NORMA AYALA MD Jun 11, 2020 21:08
[2020-06-11] MEDS: ATORVASTATIN CALCIUM 20 MG TABLET PO SCH (21:33)
--- NOTE | 2020-06-11 23:30 | NUR ---
Patient in bed, IV fluids infusing. Patient answers to name but cannot provide answers to any questions. Patient is calm and drowsy at this time.
[2020-06-12] MEDS: IV DEXTROSE 5% 1,000 ML IV SCH ×2 (01:12→13:45)
[2020-06-12] MEDS: LEVOTHYROXINE 25 MCG TABLET. PO SCH (05:20)
[2020-06-12 06:02] VITALS: BP 148/77
[2020-06-12 06:20] LABS: HEMOGLOBIN 12.1 g/dL (13.0-17.5); RED BLOOD COUNT 4.13 x10^6/uL (4.30-5.70); RED CELL DISTRIBUTION WIDTH 13.2 % (11.5-14.5); WHITE BLOOD COUNT 12.8 x10^3/uL (4.0-11.0)
[2020-06-12] MEDS: ASPIRIN CHEWABLE 81 MG TABLET. PO SCH (09:00)
[2020-06-12] MEDS: CALCIUM CARBONATE 500 MG TAB.CHEW PO SCH (09:00)
--- NOTE | 2020-06-12 12:56 | NUR ---
In Christina Zavala(patient's assigned SW) absence this worker contacted Janee, daughter/POA, to discuss comfort care/hospice as Hiren's psychotropic medications have been discontinued and his condition continues to decline. Hiren has been on IV fluids since last week, is incontinent, and needing support with all adl's. Janee expressed frustration that Hiren had been ambulatory and continent prior to his admission and does not know "what the hell have you done to my Dad." Janee agreed that she would like to discuss Hiren's medical condition with imaging science professor. ANASTACIA notified nurse rn case management of this and provided contact number for Janee to be reached at.
[2020-06-12] MEDS: ACETAMINOPHEN 500 MG TABLET PO PRN (13:45)
--- NOTE | 2020-06-12 15:07 | NUR ---
Pt has been in bed all day, he has been mostly asleep and difficult to arouse. When awake he will reach out towards unobservable objects. Pt displays wincing and grimicing when touched, unsure if this is d/t pain or an agitation response. PRN Acetaminophen administered d/t possible pain and discomfort. Cellulitis still observable in the pt's R FA. D5W infusing at 100 mL/hr in pt's L FA. Pt is complaint with medications in applesauce. Janee, Daughter, notified of possible infection and ABT on 06/11/20. She requested pictures of R FA. This nurse discussed request with Interim DON who stated/recommended that [facility] can do facetime between pt and daughter...but cannot send pictures via email/text d/t security reasons. Information passed to Janee who verbalized understanding. Zoom meeting facilitated by this nurse with pt and daughter. This nurse also received a phone call from pt's PCP, Dr Leung, requesting information on pt's status. At the time of this writing pt has been ordered to be transferred to [facility].
[2020-06-12] MEDS ORDERED: CHOL500021 PO (15:38)
[2020-06-12] MEDS ORDERED: LEVO25TA4 PO (15:38)
[2020-06-12] MEDS ORDERED: WATER IV (15:40)
[2020-06-12] MEDS ORDERED: DEXTROSE 5% IV (15:40)
[2020-06-12] MEDS: ATORVASTATIN CALCIUM 20 MG TABLET PO SCH (16:12)
[2020-06-12 16:23] VITALS: BP 136/79
--- NOTE | 2020-06-12 16:52 | NUR ---
Transition Record was faxed to follow-up provider with the following elements: Reason for admission, procedures, tests, principal diagnosis, pending studies, patient instructions, 17/11 contact information for unit, phone number to obtain pending test results, plan for follow-up care, physician follow-up, advanced directive information, and medication list with dose, duration and instructions. This information was included in the following documents: History and physical, lab results, study results, progress notes, social work planning form, DC instruction form, patient visit summary, and medication reconciliation form. Date & time record faxed: 06/12/20 [id number] Record faxed to: [facility], [facility] Record discussed with/ report given to: Tatum SWENSON
--- NOTE | 2020-06-12 21:40 | PDOC ---
Exam Note: Danielito Note: Please also refer to the separate dictated note~for this date of service dictated separately.~Patient seen individually. Discussed the patient with Nursing staff reviewed the chart.~Reviewed interim history and current functioning. Reviewed vital signs,~Labs/ Radiology~and current medications noted below. Continue current treatment with the changes noted in the dictated addendum note Assessment: Vital Signs/I&O: Vital Signs Date Time Temp Pulse Resp B/P (MAP) Pulse Ox O2 Delivery O2 Flow Rate FiO2 06/12/20 16:23 98.7 83 14 136/79 (98) 92 06/12/20 06:02 Room Air I & O 06/11/20 06/11/20 06/12/20 15:00 23:00 07:00 Intake Total 480 ml 240 ml 0 ml Balance 480 ml 240 ml 0 ml Labs: Laboratory Tests Test 06/12/20 06:07 White Blood Count 12.8 x10^3/uL (4.0-11.0) H Red Blood Count 4.13 x10^6/uL (4.30-5.70) L Hemoglobin 12.1 g/dL (13.0-17.5) L Hematocrit 37.0 % (39.0-53.0) L Mean Corpuscular Volume 90 fL (79-100) Mean Corpuscular Hemoglobin 29 pg (25-35) Mean Corpuscular Hemoglobin Concent 33 g/dL (31-37) Red Cell Distribution Width 13.2 % (11.5-14.5) Platelet Count 274 x10^3/uL (140-400) Current Medications: Meds: Laboratory Tests Test 06/12/20 06:07 White Blood Count 12.8 x10^3/uL Red Blood Count 4.13 x10^6/uL Hemoglobin 12.1 g/dL Hematocrit 37.0 % Mean Corpuscular Volume 90 fL Mean Corpuscular Hemoglobin 29 pg Mean Corpuscular Hemoglobin Concent 33 g/dL Red Cell Distribution Width 13.2 % Platelet Count 274 x10^3/uL Current Medications Medications (Trade) Dose Ordered Sig/Abdifatah Route PRN Reason Start Time Stop Time Status Last Admin Dose Admin Acetaminophen (Tylenol) 500 mg PRN Q6HRS PRN PO pain or fever 05/28/20 12:00 06/12/20 17:23 DC 06/12/20 13:45 Aspirin (Aspirin Chewable) 81 mg DAILY PO 05/29/20 09:00 06/12/20 17:23 DC 06/12/20 09:00 Bisacodyl (Dulcolax Tab) 5 mg PRN DAILY PRN PO 2ND CHOICE CONSTIPATION 05/28/20 12:00 06/12/20 17:23 DC Calcium Carbonate/ Glycine (Tums) 500 mg BID PO 05/28/20 21:00 06/12/20 17:23 DC 06/12/20 09:00 Lorazepam (Ativan) 2 mg QHS PO 05/28/20 21:00 05/28/20 22:01 DC 05/28/20 20:37 Al Hydroxide/Mg Hydroxide (Mylanta Plus Xs) 15 ml PRN AFTMEALHC PRN PO DYSPEPSIA 05/28/20 12:00 UNV Memantine (Namenda) 10 mg BID PO 05/28/20 21:00 05/28/20 21:57 DC Olanzapine (ZyPREXA ZYDIS) 2.5 mg PRN Q2HRS PRN PO PSYCHOSIS 05/28/20 12:00 05/28/20 21:57 DC Quetiapine Fumarate (SEROquel) 25 mg BID92 PO 05/28/20 14:00 06/03/20 16:18 DC 06/03/20 08:37 Quetiapine Fumarate (SEROquel) 50 mg BID92 PO 05/28/20 14:00 05/31/20 13:24 DC 05/31/20 08:28 Quetiapine Fumarate (SEROquel) 100 mg QHS PO 05/28/20 21:00 05/31/20 13:24 DC 05/30/20 21:50 Sertraline HCl (Zoloft) 100 mg DAILY PO 05/29/20 09:00 06/05/20 20:01 DC 06/05/20 08:16 Tizanidine HCl (Zanaflex) 4 mg PRN Q8HRS PRN PO MUSCLE SPASMS 05/28/20 12:00 06/12/20 17:23 DC 06/02/20 03:23 Trazodone HCl (Desyrel) 100 mg PRN QHS PRN PO INSOMNIA, MAY REPEAT X1 05/28/20 12:00 06/07/20 11:49 DC 06/04/20 20:46 Atorvastatin Calcium (Lipitor) 40 mg QHS PO 05/28/20 21:00 06/12/20 17:23 DC 06/12/20 16:12 Magnesium Hydroxide (Milk Of Magnesia) 2,400 mg PRN QHS PRN PO 1ST CHOICE CONSTIPATION 05/28/20 12:45 06/12/20 17:23 DC Multi-Ingredient Ointment (Analgesic [place]) 1 wendy PRN QID PRN TP MUSCLE PAIN 05/28/20 12:45 06/12/20 17:23 DC Al Hydroxide/Mg Hydroxide (Mylanta Plus Xs) 15 ml PRN AFTMEALHC PRN PO DYSPEPSIA 05/28/20 12:30 06/12/20 17:23 DC Olanzapine (ZyPREXA ZYDIS) 5 mg PRN Q2HRS PRN PO PSYCHOSIS 05/28/20 22:00 06/12/20 17:23 DC 06/11/20 00:27 Divalproex Sodium (Depakote Sprinkles) 125 mg TID@0900,1300,1700 PO 05/29/20 09:00 05/29/20 18:06 DC Lorazepam (Ativan) 1.5 mg QHS PO 05/29/20 21:00 05/31/20 21:01 DC 05/30/20 21:50 Lorazepam (Ativan) 1 mg QHS PO 06/01/20 21:00 06/03/20 21:01 DC 06/03/20 20:56 Lorazepam (Ativan) 0.5 mg QHS PO 06/04/20 21:00 06/06/20 21:01 DC 06/06/20 21:19 Vitamin D (Vitamin D3) 50,000 unit WEEKLY PO 05/29/20 16:00 05/29/20 17:50 DC Levothyroxine Sodium (Synthroid) 25 mcg DAILY06 PO 05/30/20 06:00 06/12/20 17:23 DC 06/12/20 05:20 Vitamin D (Vitamin D3) 50,000 unit WEEKLY PO 05/30/20 09:00 06/12/20 17:23 DC 06/06/20 08:05 Buspirone HCl (Buspar) 5 mg 0900,1700 PO 05/31/20 09:00 06/07/20 11:49 DC 06/07/20 08:15 Quetiapine Fumarate (SEROquel) 50 mg QHS PO 05/31/20 21:00 06/07/20 11:49 DC 06/06/20 21:18 Quetiapine Fumarate (SEROquel) 25 mg DAILY PO 06/04/20 09:00 06/04/20 17:34 DC 06/04/20 09:06 Quetiapine Fumarate (SEROquel) 12.5 mg 0900,1200,1500,1700 PO 06/05/20 09:00 06/07/20 11:49 DC 06/07/20 08:15 Bupropion HCl (Wellbutrin) 75 mg 0900,1200 PO 06/06/20 09:00 06/11/20 17:25 DC 06/11/20 14:05 Dextrose 1,000 ml @ 100 mls/hr Q10H IV 06/07/20 17:45 06/12/20 17:23 DC 06/12/20 13:45 Ceftriaxone Sodium (Rocephin Im) 1 gm 1X ONCE IM 06/11/20 18:30 06/11/20 18:31 DC 06/11/20 18:30 I have reviewed the current psychotropics carefully including drug interactions. Risk benefit ratio favors no change other than as noted in my dictated progress note. Diagnosis: Problems: (1) Anxiety disorder, unspecified (2) Dementia, vascular, with depression (3) Dementia, vascular, with delusions (4) Dementia in Alzheimer's disease with depression (5) Dementia in Alzheimer's disease with delusions (6) Dementia of the Alzheimer's type with early onset with behavioral disturbance (7) Major neurocognitive disorder, due to vascular disease, with behavioral disturbance, mild NORMA AYALA MD Jun 12, 2020 21:40
--- NOTE | 2020-06-12 21:40 | PDOC ---
Exam Note: Danielito Note: This note is a late entry for 06/11/2020 covers elements not covered in my initial note. Subjective: The patient was seen face to face in the evening of 06/11/2020 with Kate SWENSON, discussed and reviewed the chart. The patient slept 5 hours previous night. He still remains sedated, very confused, crying out and seems to be in pain at times. CT was unremarkable. Hospice consult is being requested per Dr. Salcedo and he remains on IV fluids. Review of Systems: No CV, , pulmonary, eye, ENT system symptoms on review. Reliability poor. Mental Status Exam: The patient is oriented to himself. Insight and judgment, recent and remote memory, attention and concentration, fund of knowledge is poor consistent with his diagnosis. Laboratory Data: Reviewed. Impression: Major neurocognitive disorder Alzheimer vascular with delusion, depression, behavioral disturbance. Anxiety disorder unspecified. Impulse control disorder unspecified. Plan: No change from initial note. Assessment: Vital Signs/I&O: Vital Signs Date Time Temp Pulse Resp B/P (MAP) Pulse Ox O2 Delivery O2 Flow Rate FiO2 06/12/20 16:23 98.7 83 14 136/79 (98) 92 06/12/20 06:02 Room Air I & O 06/11/20 06/11/20 06/12/20 15:00 23:00 07:00 Intake Total 480 ml 240 ml 0 ml Balance 480 ml 240 ml 0 ml Labs: Laboratory Tests Test 06/12/20 06:07 White Blood Count 12.8 x10^3/uL (4.0-11.0) H Red Blood Count 4.13 x10^6/uL (4.30-5.70) L Hemoglobin 12.1 g/dL (13.0-17.5) L Hematocrit 37.0 % (39.0-53.0) L Mean Corpuscular Volume 90 fL (79-100) Mean Corpuscular Hemoglobin 29 pg (25-35) Mean Corpuscular Hemoglobin Concent 33 g/dL (31-37) Red Cell Distribution Width 13.2 % (11.5-14.5) Platelet Count 274 x10^3/uL (140-400) Current Medications: Meds: Laboratory Tests Test 06/12/20 06:07 White Blood Count 12.8 x10^3/uL Red Blood Count 4.13 x10^6/uL Hemoglobin 12.1 g/dL Hematocrit 37.0 % Mean Corpuscular Volume 90 fL Mean Corpuscular Hemoglobin 29 pg Mean Corpuscular Hemoglobin Concent 33 g/dL Red Cell Distribution Width 13.2 % Platelet Count 274 x10^3/uL Current Medications Medications (Trade) Dose Ordered Sig/Abdifatah Route PRN Reason Start Time Stop Time Status Last Admin Dose Admin Acetaminophen (Tylenol) 500 mg PRN Q6HRS PRN PO pain or fever 05/28/20 12:00 06/12/20 17:23 DC 06/12/20 13:45 Aspirin (Aspirin Chewable) 81 mg DAILY PO 05/29/20 09:00 06/12/20 17:23 DC 06/12/20 09:00 Bisacodyl (Dulcolax Tab) 5 mg PRN DAILY PRN PO 2ND CHOICE CONSTIPATION 05/28/20 12:00 06/12/20 17:23 DC Calcium Carbonate/ Glycine (Tums) 500 mg BID PO 05/28/20 21:00 06/12/20 17:23 DC 06/12/20 09:00 Lorazepam (Ativan) 2 mg QHS PO 05/28/20 21:00 05/28/20 22:01 DC 05/28/20 20:37 Al Hydroxide/Mg Hydroxide (Mylanta Plus Xs) 15 ml PRN AFTMEALHC PRN PO DYSPEPSIA 05/28/20 12:00 UNV Memantine (Namenda) 10 mg BID PO 05/28/20 21:00 05/28/20 21:57 DC Olanzapine (ZyPREXA ZYDIS) 2.5 mg PRN Q2HRS PRN PO PSYCHOSIS 05/28/20 12:00 05/28/20 21:57 DC Quetiapine Fumarate (SEROquel) 25 mg BID92 PO 05/28/20 14:00 06/03/20 16:18 DC 06/03/20 08:37 Quetiapine Fumarate (SEROquel) 50 mg BID92 PO 05/28/20 14:00 05/31/20 13:24 DC 05/31/20 08:28 Quetiapine Fumarate (SEROquel) 100 mg QHS PO 05/28/20 21:00 05/31/20 13:24 DC 05/30/20 21:50 Sertraline HCl (Zoloft) 100 mg DAILY PO 05/29/20 09:00 06/05/20 20:01 DC 06/05/20 08:16 Tizanidine HCl (Zanaflex) 4 mg PRN Q8HRS PRN PO MUSCLE SPASMS 05/28/20 12:00 06/12/20 17:23 DC 06/02/20 03:23 Trazodone HCl (Desyrel) 100 mg PRN QHS PRN PO INSOMNIA, MAY REPEAT X1 05/28/20 12:00 06/07/20 11:49 DC 06/04/20 20:46 Atorvastatin Calcium (Lipitor) 40 mg QHS PO 05/28/20 21:00 06/12/20 17:23 DC 06/12/20 16:12 Magnesium Hydroxide (Milk Of Magnesia) 2,400 mg PRN QHS PRN PO 1ST CHOICE CONSTIPATION 05/28/20 12:45 06/12/20 17:23 DC Multi-Ingredient Ointment (Analgesic [place]) 1 wendy PRN QID PRN TP MUSCLE PAIN 05/28/20 12:45 06/12/20 17:23 DC Al Hydroxide/Mg Hydroxide (Mylanta Plus Xs) 15 ml PRN AFTMEALHC PRN PO DYSPEPSIA 05/28/20 12:30 06/12/20 17:23 DC Olanzapine (ZyPREXA ZYDIS) 5 mg PRN Q2HRS PRN PO PSYCHOSIS 05/28/20 22:00 06/12/20 17:23 DC 06/11/20 00:27 Divalproex Sodium (Depakote Sprinkles) 125 mg TID@0900,1300,1700 PO 05/29/20 09:00 05/29/20 18:06 DC Lorazepam (Ativan) 1.5 mg QHS PO 05/29/20 21:00 05/31/20 21:01 DC 05/30/20 21:50 Lorazepam (Ativan) 1 mg QHS PO 06/01/20 21:00 06/03/20 21:01 DC 06/03/20 20:56 Lorazepam (Ativan) 0.5 mg QHS PO 06/04/20 21:00 06/06/20 21:01 DC 06/06/20 21:19 Vitamin D (Vitamin D3) 50,000 unit WEEKLY PO 05/29/20 16:00 05/29/20 17:50 DC Levothyroxine Sodium (Synthroid) 25 mcg DAILY06 PO 05/30/20 06:00 06/12/20 17:23 DC 06/12/20 05:20 Vitamin D (Vitamin D3) 50,000 unit WEEKLY PO 05/30/20 09:00 06/12/20 17:23 DC 06/06/20 08:05 Buspirone HCl (Buspar) 5 mg 0900,1700 PO 05/31/20 09:00 06/07/20 11:49 DC 06/07/20 08:15 Quetiapine Fumarate (SEROquel) 50 mg QHS PO 05/31/20 21:00 06/07/20 11:49 DC 06/06/20 21:18 Quetiapine Fumarate (SEROquel) 25 mg DAILY PO 06/04/20 09:00 06/04/20 17:34 DC 06/04/20 09:06 Quetiapine Fumarate (SEROquel) 12.5 mg 0900,1200,1500,1700 PO 06/05/20 09:00 06/07/20 11:49 DC 06/07/20 08:15 Bupropion HCl (Wellbutrin) 75 mg 0900,1200 PO 06/06/20 09:00 06/11/20 17:25 DC 06/11/20 14:05 Dextrose 1,000 ml @ 100 mls/hr Q10H IV 06/07/20 17:45 06/12/20 17:23 DC 06/12/20 13:45 Ceftriaxone Sodium (Rocephin Im) 1 gm 1X ONCE IM 06/11/20 18:30 06/11/20 18:31 DC 06/11/20 18:30 I have reviewed the current psychotropics carefully including drug interactions. Risk benefit ratio favors no change other than as noted in my dictated progress note. Diagnosis: Problems: (1) Anxiety disorder, unspecified (2) Dementia, vascular, with depression (3) Dementia, vascular, with delusions (4) Dementia in Alzheimer's disease with depression (5) Dementia in Alzheimer's disease with delusions (6) Dementia of the Alzheimer's type with early onset with behavioral disturbance (7) Major neurocognitive disorder, due to vascular disease, with behavioral disturbance, mild NORMA AYALA MD Jun 12, 2020 21:40
[2020-06-13 04:16] LABS: ALBUMIN/GLOBULIN RATIO 0.4 (1.0-1.7); CALCIUM 8.5 mg/dL (8.5-10.1); CREATININE 1.3 mg/dL (0.7-1.3); GFR 53.3; TOTAL BILIRUBIN 0.4 mg/dL (0.2-1.0); TOTAL PROTEIN 6.7 g/dL (6.4-8.2)
[2020-06-13 04:17] LABS: POTASSIUM 3.7 mmol/L (3.5-5.1)
--- NOTE | 2020-06-19 12:02 | DS ---
DATE OF DISCHARGE: 06/12/2020 DISCHARGE SUMMARY\PSYCHIATRIC PROGRESS NOTE The patient was admitted 05/26/[address] [place] [address] on referral from [facility] and transitioned to [facility] on 05/28/2020 after he was found to be COVID negative. 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 While at the [facility], he was agitated, wandering, grabbed at peers. He was sundowning and impulsive, was having marked insomnia, physical aggression. Behaviors were deemed dangerous, unmanageable, had failed outpatient psychiatric interventions with Dr. Massey, his primary care physician at the facility and then referred to us for psychiatric stabilization. Once the COVID screen was negative on [address] [place] [address]. He was transitioned to our unit. SIGNIFICANT FINDINGS AND CLINICAL COURSE: Following admission, the patient was seen daily individually by myself from a psychiatric standpoint, medical followup with Dr. Salcedo/Dr. Knight. The patient remained extremely confused, initially anxious, restless and then appeared more sedated. His oral intake was consequently poor. Psychotropic medication adjustments had been made at the [facility] to control his behaviors and given his sedation on our unit in fact, we had reduced his psychotropics and ultimately stopped all of them, but the sedation withdrawal persisted. He was on IV fluids for dehydration per Dr. Salcedo/Dr. Knight and then on 06/12/2020, decision was made to transition him to [address] [place] [address] Medical/Surgical floor at the facility; however, after discussion with the daughter and Dr. Massey, his primary care physician, arrangements were made to transition him reportedly to [facility] at the suggestion of the family. He intermittently was grabbing at things, but the main concern was his ongoing sedation. He was starting to eat a little bit better with nursing assistance for the last day or two of his stay on our unit. He also had developed cellulitis of his arm from the IV pricks with a plan for this to be treated on antibiotics per Dr. Salcedo but then as noted, he was transitioned to [facility]. REVIEW OF SYSTEMS: Prior to discharge, no CV, , pulmonary, eye, ENT system symptoms on review. Reliability poor. MENTAL STATUS EXAM: Oriented to himself. Insight, judgment, recent and remote memory, attention, concentration, fund of knowledge poor, consistent with his diagnosis. FINAL DIAGNOSES: Major neurocognitive disorder, Alzheimer's, vascular with delusion, depression, behavioral disturbance. Sedation. Rest diagnosis unchanged from admission. DISCHARGE MEDICATIONS: Essentially all of the patient's psychotropics had been stopped well prior to his discharge. He just remains on Zyprexa p.r.n., but this had not been used given his ongoing sedation. CONDITION AT DISCHARGE: He was still confused, but sedation was a little better. DISCHARGE INSTRUCTIONS: Psychiatric and medical followup at [facility] and with Dr. Salcedo while he is on . Time for discharge day management greater than 30 minutes. I met with Dr. Salcedo to discuss the patient's progress prior to his discharge on 06/12/2020. MAN Kadie AYALA MD DR: BRAVO/jun JOB#: [id number] / [id number]
== END 2020-06-12 17:22 | disposition short-term general hospital (02) | DRG 57 ==
LOC: GEROPSY 10:40
PROVIDERS: ADMIT Psychiatry & Neurology Psychiatry; ATTEND Psychiatry & Neurology Psychiatry
DX: G30.9 Alzheimer's disease, unspecified (principal); F01.51 Vascular dementia, unspecified severity, with behavioral disturbance; N18.30 Chronic kidney disease, stage 3 unspecified; F31.60 Bipolar disorder, current episode mixed, unspecified; F02.81 Dementia in other diseases classified elsewhere, unspecified severity, with behavioral disturbance; F41.9 Anxiety disorder, unspecified; E55.9 Vitamin D deficiency, unspecified; E78.5 Hyperlipidemia, unspecified; E86.0 Dehydration; F42.9 Obsessive-compulsive disorder, unspecified; F63.9 Impulse disorder, unspecified; G47.00 Insomnia, unspecified; I12.9 Hypertensive chronic kidney disease with stage 1 through stage 4 chronic kidney disease, or unspecified chronic kidney disease; I48.91 Unspecified atrial fibrillation; K22.70 Barrett's esophagus without dysplasia; Z66 Do not resuscitate; Z79.899 Other long term (current) drug therapy; Z80.1 Family history of malignant neoplasm of trachea, bronchus and lung; Z85.828 Personal history of other malignant neoplasm of skin; Z86.19 Personal history of other infectious and parasitic diseases; G89.29 Other chronic pain; Z20.822 Contact with and (suspected) exposure to COVID-19
CPT/HCPCS: 36415; 70450; 71045; 71100; 71250; 74176; 80048; 80053; 80164; 81001; 83970; 84100; 85025; 85027; J0696; U0003; 97116; 97530

== ENCOUNTER 2020-06-12 15:00 | Inpatient (IN) | payer MEDICARE ==
[~2020-06-12] VITALS: Ht 172.7 cm; Wt 76.6 kg
[~2020-06-12 15:00] MED LIST changes: +MAG-115 PO; +MAGN24003 PO; +METH28OI2 TP; +OLAN5TAB99 PO; +TRAZ-125 PO
[2020-06-12] MEDS ORDERED: CHOL500021 PO (15:38)
[2020-06-12] MEDS ORDERED: LEVO25TA4 PO (15:38)
[2020-06-12] MEDS ORDERED: WATER IV (15:40)
[2020-06-12] MEDS ORDERED: DEXTROSE 5% IV (15:40)
--- NOTE | 2020-06-12 18:05 | NUR ---
ADMISSION-PT ARRIVES VIA BED FROM [facility] FOR ADMISSION FOR CELLULITIS OF (R) ARM. HE IS ASLEEP, WAKING ONLY DURING SLIDE TRANSFER FROM BED TO BED. NO O2 NEEDED BY PT, 24 (L) FA WITH D5W AT THIS TIME. PT C/O NAUSEA, SMALL AMOUNT OF BROWN EMESIS NOTED. DR LIMON ON FLOOR, ASSESSES PATIENT ET ENTERS ORDERS.
--- NOTE | 2020-06-12 18:11 | NUR ---
PT IS NOT RESPONSIVE TO QUESTIONS. FAMILY HISTORY, DATE OF FLU VAX, PREFERRED PHARMACY ALL UNOBTAINABLE AT THIS TIME.
[2020-06-12 18:26] VITALS: BP 189/97
[2020-06-12 18:37] LABS: CALCIUM 8.8 mg/dL (8.5-10.1); CREATININE 1.3 mg/dL (0.7-1.3); GFR 53.3; POTASSIUM 3.9 mmol/L (3.5-5.1)
[2020-06-12 18:42] LABS: ALBUMIN 2.2 g/dL (3.4-5.0); ALBUMIN/GLOBULIN RATIO 0.4 (1.0-1.7); TOTAL BILIRUBIN 0.3 mg/dL (0.2-1.0); TOTAL PROTEIN 7.1 g/dL (6.4-8.2)
--- NOTE | 2020-06-12 18:56 | HP ---
ADMIT DATE: 06/12/2020 HISTORY OF PRESENT ILLNESS: The patient is a 80-year-old male patient apparently a resident at [facility] in [place], who was admitted to [address] [place] [address] on 05/27/2020 on account of worsening agitation, wandering, grabbed peers arms on 2 separate occasions, ing, impulsive, has severe insomnia and some physical aggression, apparently an attempt to treat him with increase in his Seroquel and Ambien for insomnia and the sitter at bedtime to decrease wandering without much improvement and therefore, he was admitted to [address] [place] [address] and screened for coronavirus and once it was negative, he was [facility] for [facility] psychiatric stabilization. Initially when he arrived to [address] [place] [address], he was apparently extremely aggressive, combative, impulsive; however, he was demented and does not give any useful information. He was [facility] to [facility] and he was seen by the psychiatrist and who apparently adjusted his psychotropic medication and I saw him upstairs as he was very lethargic and in fact, his serum sodium has progressively risen from 140 to 146 and I saw him when his serum sodium was 157. His BUN and creatinine was high. He has poor oral intake and therefore, I did start him on D5W and he has been on D5W since 06/07/2020. His kidney function, serum creatinine has steadily improved, in fact, his most recent serum sodium was 140, potassium 3.7, chloride 104, bicarbonate 28, anion gap of 8, BUN was 130 and creatinine 1.4 and his white cell count was slightly elevated at 12.8; hemoglobin 12; hematocrit 37; MCV 90 and platelet count 274,000. As I saw him yesterday and he has cellulitis of his right upper extremity and basically, the patient continued to be demented, although he is now slightly more awake, he was on pureed diet, takes about 25% of his meals, although he spent most of time in bed, sleeping. He swallowed his medications crushed in applesauce. I spoke with his daughter and she stated that he has been ambulatory. He has been able to feed himself and he was also continent and has never used a previous before when he move to [facility] and his mental status or mobility has dramatically worsened, although Dr. Muñoz has basically took him off of all his psychotropic medication given that he had developed cellulitis and they continued to require IV fluid. A decision was made to transfer him to [address] [place] [address] continue to start him on IV antibiotic. Continue with IV fluid and I spoke with his daughter, Dr. Raymundo, in-house physician at [facility] and the plan was to arrange for him to be transferred to [facility] inpatient psychiatric unit to be seen by the psychiatrist and also the other behavioral medical director as needed. PAST MEDICAL HISTORY: Significant for chronic stage 3 kidney disease, atrial fibrillation, hypertension, Barrera's esophagus, hyperlipidemia and chronic pain syndrome. He does have severe pain in his left sided chest that is exquisitely tender. He has never had any herpetic blisters or herpes zoster rash. I did actually x-ray in that area and did a CT scan. I actually also asked his daughter whether he has had shingles before because the way he grimaces when that area touched on the left side of the chest consistent probably with some form of postherpetic neuralgia. His daughter apparently was not aware, but she will talk to his primary care physician. PAST SURGICAL HISTORY: Significant for cholecystectomy and skin cancer excision. FAMILY HISTORY: Both parents are because of lung cancer. SOCIAL HISTORY: He does not smoke. He drinks 1-2 drinks of alcohol per day. He was previously in an independent living facility. 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 ALLERGIES: He has no known drug allergies. MEDICATIONS: He is currently on following medications: He is on D5W at 100 mL per hour. He is on vitamin D 50,000 units once a week, levothyroxine 25 mcg once a day, aspirin 81 mg once a day, olanzapine 5 mg every 2 hours as needed, atorvastatin 40 mg at bedtime, calcium carbonate 500 mg twice a day, magnesium hydroxide for milk of magnesia 30 mL p.o. daily p.r.n. for constipation, Mylanta 15 mL after meals and as needed, tizanidine 4 mg every 8 hours, bisacodyl for Dulcolax tablet 5 mg daily and acetaminophen 500 mg every 6 hours. PHYSICAL EXAMINATION: GENERAL: When I saw him today, he was resting slightly propped up in bed, in no apparent distress. He is more awake, but he was very confused and probably hallucinating. There was no pallor, jaundice, cyanosis or thyromegaly. No jugular venous distention. No lower limb edema. VITAL SIGNS: His heart rate was 83, blood pressure was 136/79, temperature was 98.7, respiratory rate was 14 and oxygen saturation was 92% on room air. HEAD, EYES, EARS, NOSE AND THROAT: Showed normocephalic, atraumatic. NECK: Supple. HEART: Showed normal first and second heart sounds. No gallop, rub or murmur. CHEST: Clear to auscultation. No crepitation or rhonchi. ABDOMEN: Distended, soft, nontender. No guarding or rigidity. No organomegaly. All hernial orifice intact. Bowel sounds normal. NEUROLOGIC: He is awake, alert, but very confused, but all his cranial nerves are intact. EXTREMITIES: He moves extremities spontaneously, although he is mostly bedbound. He has mittens in both hands as he continued to pull out his IV lines. LABORATORY DATA: As of this morning, his white cell count was 12,800; hemoglobin 12; hematocrit 37; MCV 90 and platelet count 274,000 with normal manual differential. His chemistry is still pending at the time of this dictation. The latest lab work on 06/10/2020 showed a serum sodium 140, potassium 3.7, chloride 104, bicarbonate 28, anion gap of 8, BUN 30, creatinine 1.4, estimated GFR was 48 mL per minute. His glucose was 97, calcium was 8.6, phosphorus was 4. His albumin was 2.3. Total protein was 7.1. His estimated GFR was 45 mL per minute. His intact PTH was 33, calcium was 9.8. ASSESSMENT AND PLAN: In summary, this is a 80-year-old male patient, who was a resident at [facility], who was originally admitted on 05/27/2020 on account of increased agitation at the assisted with significant behavioral problems. He apparently had increased agitation in the assisted. He was wondering to other residents, grabbing peers arm in 2 separate occasions, confused, agitated, delusional and increasing aggression and seemed to worsen with sundowning, very impulsive, has marked insomnia and despite adjustment of his psychotropic medication including increasing Seroquel and Ambien without much improvement and therefore, he was admitted to [facility] after screening for COVID-19 and that turned out to be negative. Over the course of his [facility] apparently, he became more and more lethargic and mobility has improved and despite his intake was poor despite withdrawal, most of his psychotropic medications and intensive treatment with IV fluid. He remained mostly lethargic, although he seemed to be much better today in terms he is more awake, alert. According to the nursing staff, he is on a pureed diet, nectar thickened liquids and he has been eating about 25% of his meal. Unfortunately, he developed a right forearm cellulitis and therefore he was transferred to [address] [place] [address] to start him on IV vancomycin. Continue with IV fluid. I have consulted our family preservation caseworker with a plan to transfer him to [facility] to be evaluated by psychiatrist there also other behavioral medical director that might need to assist with his management. Meanwhile, we will continue with all his medication here, continued with the pureed diet and nectar thickened liquid. Continue with IV fluid. I did order stat CMP to see if to make sure that his electrolytes and kidney function remains within acceptable range. GIULIA LIMON MD DR: CHIOMA/jun JOB#: [id number] / [id number]
[2020-06-12] MEDS ORDERED: VANCOMYCIN 2 GM in IV NORMAL SALINE 500ML 500 ML IV ONE (19:00)
[2020-06-12 19:40] VITALS: BP 141/82
--- NOTE | 2020-06-12 21:24 | NUR ---
called in patient's daughter Janee Rodarte and explained the PICC line to her since Dr Salcedo ordering PICC for a course of antbx for cellulitis in order to get consent. Daughter stated she does not want her father to get a PICC line at [place], rather to just keep IV and wear mitts fo avoid pulling line and then finish treatment at [facility].
[2020-06-12] MEDS: VANCOMYCIN PER PHARMACY MC PRN (21:37)
--- NOTE | 2020-06-12 21:39 | NUR ---
Pharmacy Vancomycin Dosing Note S:Consulted to monitor and dose vancomycin started 06/12/20. O:SARAH BETH REYES is a 80 year old M with Cellulitis, . Height: 5 feet, 8 inches Weight: 80.1 kg [place] Body Weight: 68.40 Adjusted Body Weight: 73.08 Dosing Weight: Actual Other Antibiotics: None LABS: Last BUN: 30 Last Creatinine: 1.5 Creatinine Clearance: 47.63 Last WBC: 12.8 Vancomycin Dosing: Loading Dose: 2000 mg x1 Dosing Weight: Actual Target Trough: 10-20 A: Based on: Actual weight, renal function, and indication P: 1. Begin Vancomycin 1250 mg IV q24h 2. Follow up Trough level on 06/14/20 at 2130 3. Pharmacy will continue to monitor, follow and adjust therapy as needed. LARISSA SWANN, 06/12/20 [id number]
[2020-06-12 22:41] VITALS: BP 146/69
[2020-06-13 05:02] VITALS: BP 157/82
[2020-06-13] MEDS ORDERED: ACETAMINOPHEN 500 MG TABLET PO PRN (05:15)
[2020-06-13] MEDS ORDERED: tiZANidine 4 MG TABLET. PO PRN (05:15)
[2020-06-13] MEDS ORDERED: BISACODYL TAB 5 MG TABLET.DR. PO PRN (05:15)
[2020-06-13] MEDS ORDERED: MAG HYDROX/AL HYDROX/SIMETH 30 ML ORAL.SUSP PO PRN (05:15)
[2020-06-13] MEDS ORDERED: MAGNESIUM HYDROXIDE 2,400 MG/30 ML ORAL.SUSP. PO PRN (05:30)
[2020-06-13] MEDS: LEVOTHYROXINE 25 MCG TABLET. PO SCH (06:00)
--- NOTE | 2020-06-13 08:21 | PN ---
DATE: 06/13/2020 ATTENDING PHYSICIAN: Dr. Salcedo. SUBJECTIVE: Profoundly confused. 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 OBJECTIVE FINDINGS: VITAL SIGNS: Blood pressure this morning 146/69, temperature 97.8 degrees Fahrenheit, oxygen saturation 91%, pulse is 80 and regular. HEENT: Head is without trauma. Pupils are reactive. Sclerae nonicteric. Oropharynx clear. NECK: Supple. LUNGS: He is exquisitely tender when I lay the stethoscope on the left side of the chest, shallow respirations. CARDIOVASCULAR: Showed regular heart tones. No gallops. ABDOMEN: Soft, no guarding, no tympany. EXTREMITIES: Without edema. NEUROLOGIC: Profoundly demented. He required mittens to prevent pulling IVs out. There was report of cellulitis of the arm that has since improved. SKIN: Warm and dry. LABORATORY DATA: I examined his chemistry panel, his electrolytes within normal range. Creatinine 1.3. Transaminases were fairly normal. ASSESSMENT: 1. 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 He has severe left-sided chest pain. Exquisitely tender, he could have early herpes zoster and post-herpetic neuralgia. 2. Barrera esophagitis. 3. Hypertension. 4. Profound dementia. 5. Chronic kidney disease, stage 3. 6. Paroxysmal atrial fibrillation. PLAN: 1. Pain control. 2. Diet as tolerated. 3. D[facility]. We are in the process of making that happen. ABHISHEK CALRSON MD DR: VINCENT/jun JOB#: [id number] / [id number]
[2020-06-13] MEDS: ASPIRIN CHEWABLE 81 MG TABLET. PO SCH (08:33)
[2020-06-13] MEDS: CALCIUM CARBONATE 500 MG TAB.CHEW PO SCH ×2 (08:34→21:45)
[2020-06-13 10:50] VITALS: BP 160/66
--- NOTE | 2020-06-13 11:44 | NUR ---
At approximately 0930, ANASTACIA was notified by nursing that pt dtr/DPOA, Janee, wanted pt transferred to [facility] psychiatric unit. ANASTACIA contacted [facility] to inquire about availability and if they could take a pt with an IV. ANASTACIA informed that there were no current beds available and they could not take patients with IVs. ANASTACIA then informed Janee of such and addressed if she would like for [facility] to attempt to transfer to [facility] through the medical side as pt appears to be having more medical complexities as opposed to psychiatric complexities. Janee was adamant that she wanted pt transferred to [facility] and was agreeable to send pt for medical treatment. Janee was pretty insistent that the transfer happen today. ANASTACIA stated that this information would be shared with the nurse insurance case manager here at [facility] and a transfer would be pursued today and that it would depend on if [facility] had availability. ANASTACIA reported this conversation to nurse insurance case manager who was going to reach out to [facility] to pursue the transfer. Around 1045, ANASTACIA was then notified by nurse insurance case manager that [facility] does not have any bed available to take the patient. ANASTACIA then contacted Janee, to relay this information and inquire how she wanted to proceed. ANASTACIA explained that since pt was on IV antibiotics, that course of treatment could be finished here at [facility] or possibly be transferred back to [facility] to complete the treatment there. Janee stated that she had talked to Dr. Leung, the facility doctor about that already, and Dr. Leung had reported to her that he didn't believe that they could accommodate that at the facility. Janee reported that she would get back in contact with Dr. Leung to help her determine what to do and that she would contact ANASTACIA back to follow up. ANASTACIA awaiting call.
[2020-06-13 14:47] VITALS: BP 135/85
[2020-06-13] MEDS ORDERED: CHOLECALCIFEROL (VITAMIN D3) 50,000 UNIT CAPSULE PO SCH (16:00)
--- NOTE | 2020-06-13 16:14 | NUR ---
ANASTACIA received call back from pt dtr/DPCLAIRE, Janee, who stated that she had been in contact with pt doctor from the facility, Dr. Leung, who per Janee's report stated that he would try to get pt into [facility] since [facility] couldn't take pt. Janee gave permission for this to happen. She, also, requested that [facility] be tried again tomorrow for pt admittance. Janee, further, stated that she spoke with Dr. Leung about pt having a PICC line and after talking with Dr. Leung, she was giving permission for pt to have a PICC line. Following the call with Janee, ANASTACIA contacted pt nurse to inform that Janee was giving permission for pt to have a PICC line. Nurse informed ANASTACIA that there currently isn't any certified staff working to do the PICC line and that pt seemed to be doing well with the regular IV at this time. ANASTACIA then contacted Janee back to inform her of such. Janee stated that she understood the circumstances and if he needed the PICC line in the future, she was agreeable to it. ANASTACIA stated to Janee that she would be back in contact with her tomorrow. Janee agreeable and expressed wanting to know if pt ended up needing the PICC line. ANASTACIA agreeable to let her know.
[2020-06-13 20:05] VITALS: BP 172/80
[2020-06-13] MEDS ORDERED: ATORVASTATIN CALCIUM 20 MG TABLET PO SCH (21:00)
[2020-06-13] MEDS: VANCOMYCIN 1.25 GM in IV NORMAL SALINE 250ML 250 ML IV SCH (22:15)
[2020-06-13 22:24] VITALS: BP 166/79
[2020-06-14 05:19] VITALS: BP 169/67
[2020-06-14] MEDS: LEVOTHYROXINE 25 MCG TABLET. PO SCH (06:21)
--- NOTE | 2020-06-14 09:19 | PN ---
DATE: 06/14/2020 ATTENDING PHYSICIAN: Dr. Salcedo. SUBJECTIVE: No response. He remains bedridden, complete 24-hour care, profoundly demented. OBJECTIVE FINDINGS: VITAL SIGNS: Blood pressure this morning is 169/67, pulse 82 and regular, temperature 98.0 degrees Fahrenheit, oxygen saturation 98% on room air. HEENT: Head is without trauma. Pupils are reactive. Sclerae nonicteric. Oropharynx is clear. NECK: Supple, no bruits. LUNGS: Shallow respirations. CARDIOVASCULAR: Showed distant heart tones. No gallops. ABDOMEN: Soft, no guarding. EXTREMITIES: Showed trace edema. NEUROLOGIC: Profoundly confused and bedridden, nonverbal this morning. ASSESSMENT: 1. A 80-year-old gentleman with profound behavioral issues and dementia. 2. Barrera's esophagitis. 3. Hypertension. 4. Chronic kidney disease, stage 3. 5. Paroxysmal atrial fibrillation. 6. Possible early herpes zoster. PLAN: 1. Pain control. 2. Meds simplified. 3. Diet as tolerated. 4. We are still discussing placement inpatient psychiatric care at [facility] is not an option as they are full and have a waiting list of 3 patients ahead of him. ABHISHEK CARLSON MD DR: VINCENT/jun JOB#: [id number] / [id number]
[2020-06-14] MEDS: CALCIUM CARBONATE 500 MG TAB.CHEW PO SCH ×2 (09:33→21:31)
[2020-06-14] MEDS: LACTOBACILLUS RHAMNOSUS GG 1 CAPSULE. PO SCH ×2 (09:33→21:31)
[2020-06-14] MEDS: ASPIRIN CHEWABLE 81 MG TABLET. PO SCH (09:33)
[2020-06-14 10:46] VITALS: BP 121/90
[2020-06-14 14:37] VITALS: BP 145/69
--- NOTE | 2020-06-14 16:18 | NUR ---
ANASTACIA followed up with nurse rn case mgr regarding pt transfer to [facility] or [facility]. ANASTACIA informed that neither of those hospitals can take pt at this time. ANASTACIA followed up with call to pt dtr/DPOA Janee to inform Janee of such. Janee aware that pt's psychotropic medications were stopped. Janee did state that it was her impression that Dr. Muñoz would still continue to follow pt even though he was on the medical floor and that, "he wasn't just forgotten about." ANASTACIA reassured Janee that it would be addressed with Dr. Muñoz her desires for him to continue to follow while he was on the medical floor. ANASTACIA communicated to Janee that pt status seems to not have changed even after discontinuing psychotropic medication. Janee reassured that nurse rn case mgr would reach back out to [facility] and tomorrow to see if any bed availability. ANASTACIA agreeable to contact Janee tomorrow with updates. Janee appreciative.
[2020-06-14 19:54] VITALS: BP 109/72
--- NOTE | 2020-06-14 22:08 | PDOC ---
Exam Note: Danielito Note: Please also refer to the separate dictated note~for this date of service dictated separately.~Patient seen individually. Discussed the patient with Nursing staff reviewed the chart.~Reviewed interim history and current functioning. Reviewed vital signs,~Labs/ Radiology~and current medications noted below. Continue current treatment with the changes noted in the dictated addendum note Assessment: Vital Signs/I&O: Vital Signs Date Time Temp Pulse Resp B/P (MAP) Pulse Ox O2 Delivery O2 Flow Rate FiO2 06/14/20 19:54 97.8 72 24 109/72 (84) 92 Room Air I & O 06/13/20 06/13/20 06/14/20 14:59 22:59 06:59 Intake Total 360 ml 310 ml Balance 360 ml 310 ml Current Medications: Meds: Current Medications Medications (Trade) Dose Ordered Sig/Abdifatah Route PRN Reason Start Time Stop Time Status Last Admin Dose Admin Lactobacillus Rhamnosus (Culturelle) 1 cap BID PO 06/14/20 09:00 06/14/20 21:31 I have reviewed the current psychotropics carefully including drug interactions. Risk benefit ratio favors no change other than as noted in my dictated progress note. Diagnosis: Problems: (1) Anxiety disorder, unspecified (2) Dementia, vascular, with depression (3) Dementia, vascular, with delusions (4) Dementia in Alzheimer's disease with depression (5) Dementia in Alzheimer's disease with delusions (6) Dementia of the Alzheimer's type with early onset with behavioral disturban ce (7) Major neurocognitive disorder, due to vascular disease, with behavioral disturbance, mild NORMA AYALA MD Jun 14, 2020 22:08
[2020-06-14 22:21] VITALS: BP 110/70
[2020-06-14 22:48] LABS: VANC TR 10.5 mcg/mL (10.0-20.0)
[2020-06-14] MEDS: VANCOMYCIN PER PHARMACY MC PRN ×2 (23:05→23:06)
--- NOTE | 2020-06-14 23:07 | NUR ---
Pharmacy Vancomycin Dosing Note S:Consulted to monitor and dose vancomycin started 06/12/20. O:SARAH BETH REYES is a 80 year old M with Cellulitis, . Height: 5 feet, 8 inches Weight: 80.1 kg [place] Body Weight: 68.40 Adjusted Body Weight: 73.08 Dosing Weight: Actual Other Antibiotics: LABS: Last BUN: 28 Last Creatinine: 1.3 Creatinine Clearance: 47.63 Last WBC: 12.8 Last Procalcitonin: Tmax (past 24 hours): Microbiology: I/O: 670/- 6 VOIDS Drug Levels: Last Trough level: 10.5 on 06/14/20 at 2208 Last dose given at Vancomycin Dosing: Loading Dose: Dosing Weight: Actual Target Trough: 10-20 A: Based on: P: 1. 06/14/20 2300 Continue Vancomycin 1250 mg IV q24h 2. Follow up Trough level in 5 to 7 days as needed 3. Pharmacy will continue to monitor, follow and adjust therapy as needed. KAL ALBRIGHT RPH, 06/14/202306 Signed: 06/14/20 at 2309 by KAL ALBRIGHT RPH PHA
[2020-06-14] MEDS: VANCOMYCIN 1.25 GM in IV NORMAL SALINE 250ML 250 ML IV SCH (23:15)
[2020-06-15 05:41] VITALS: BP 133/51
[2020-06-15] MEDS: LEVOTHYROXINE 25 MCG TABLET. PO SCH (05:43)
[2020-06-15] MEDS: LACTOBACILLUS RHAMNOSUS GG 1 CAPSULE. PO SCH ×2 (08:00→22:07)
[2020-06-15] MEDS: ASPIRIN CHEWABLE 81 MG TABLET. PO SCH (08:00)
[2020-06-15] MEDS: CALCIUM CARBONATE 500 MG TAB.CHEW PO SCH ×2 (08:00→22:07)
--- NOTE | 2020-06-15 08:34 | PDOC ---
Exam Note: Danielito Note: This note is a late entry for 06/14/2020 covers elements not covered in my initial note. Subjective: The patient was seen for psychiatric consultation requested by Dr. Salcedo on 06/14/2020. Discussed with nursing staff, reviewed the chart. Previously I received a call from the nursing staff indicating the patient was getting agitated with cares, otherwise, confused. He has meds on his hands and medically seems to be stabilizing. He remains confused, somewhat sedated but less so than before. His Zyprexa has been discontinued p.r.n. per Dr. Salcedo. Review of Systems: Ambulation impaired. No CV, , pulmonary, eye, ENT system symptoms on review. Reliability poor. Mental Status Exam: The patient is oriented to himself. He was lying in bed. I met with him after discussing with the nursing staff. Insight and judgment, recent and remote memory, attention and concentration, fund of knowledge poor consistent with his diagnosis. Laboratory Data: Reviewed. Impression: Major neurocognitive disorder Alzheimer vascular with delusion, depression, behavioral disturbance. Anxiety disorder unspecified. Impulse control disorder unspecified. Plan: We will avoid any psychotropics for now since most of these are sedating and we are trying to avoid sedation for him. We will reassess if agitation resurfaces and consider very low dose of Seroquel or Zyprexa p.r.n. if needed. Assessment: Vital Signs/I&O: Vital Signs Date Time Temp Pulse Resp B/P (MAP) Pulse Ox O2 Delivery O2 Flow Rate FiO2 06/15/20 08:02 Room Air 06/15/20 05:41 97.7 83 24 133/51 (78) 93 I & O 06/14/20 06/14/20 06/15/20 15:00 23:00 07:00 Intake Total 175 ml 100 ml 300 ml Balance 175 ml 100 ml 300 ml Labs: Laboratory Tests Test 06/14/20 22:08 Vancomycin Level Trough 10.5 mcg/mL (10.0-20.0) Vancomycin Last Dose Date 06/13/2020 Vancomycin Last Dose Time 2200 Current Medications: Meds: Laboratory Tests Test 06/14/20 22:08 Vancomycin Level Trough 10.5 mcg/mL Vancomycin Last Dose Date 06/13/2020 Vancomycin Last Dose Time 2200 Current Medications Medications (Trade) Dose Ordered Sig/Abdifatah Route PRN Reason Start Time Stop Time Status Last Admin Dose Admin Vancomycin HCl (Vanco Per Pharmacy) 1 each PRN DAILY PRN MC SEE COMMENTS 06/12/20 18:00 06/14/20 23:06 Vancomycin HCl 2 gm/Sodium Chloride 500 ml @ 250 mls/hr 1X ONCE IV 06/12/20 19:00 06/12/20 20:59 DC 06/12/20 22:00 Vancomycin HCl 1.25 gm/Sodium Chloride 250 ml @ 167 mls/hr Q24H IV 06/13/20 22:00 06/14/20 23:15 Vancomycin HCl (Vancomycin Trough Level) 1 each 1X ONCE MC 06/14/20 21:30 06/14/20 21:31 DC Acetaminophen (Tylenol) 500 mg PRN Q6HRS PRN PO pain or fever 06/13/20 05:15 Aspirin (Aspirin Chewable) 81 mg DAILY PO 06/13/20 09:00 06/14/20 09:33 Bisacodyl (Dulcolax Tab) 5 mg PRN DAILY PRN PO CONSTIPATION 06/13/20 05:15 Calcium Carbonate/ Glycine (Tums) 500 mg BID PO 06/13/20 09:00 06/14/20 21:31 Vitamin D (Vitamin D3) 50,000 unit QWE PO 06/13/20 16:00 06/14/20 09:08 DC Levothyroxine Sodium (Synthroid) 25 mcg DAILY06 PO 06/13/20 06:00 06/15/20 05:43 Al Hydroxide/Mg Hydroxide (Mylanta Plus Xs) 15 ml PRN AFTMEALHC PRN PO DYSPEPSIA 06/13/20 05:15 Tizanidine HCl (Zanaflex) 4 mg PRN Q8HRS PRN PO MUSCLE SPASMS 06/13/20 05:15 06/14/20 09:08 DC Atorvastatin Calcium (Lipitor) 40 mg QHS PO 06/13/20 21:00 06/14/20 09:08 DC 06/13/20 21:45 Magnesium Hydroxide (Milk Of Magnesia) 2,400 mg PRN QHS PRN PO CONSTIPATION 06/13/20 05:30 06/14/20 09:08 DC Lactobacillus Rhamnosus (Culturelle) 1 cap BID PO 06/14/20 09:00 06/14/20 21:31 Current Medications Medications (Trade) Dose Ordered Sig/Abdifatah Route PRN Reason Start Time Stop Time Status Last Admin Dose Admin Lactobacillus Rhamnosus (Culturelle) 1 cap BID PO 06/14/20 09:00 06/14/20 21:31 I have reviewed the current psychotropics carefully including drug interactions. Risk benefit ratio favors no change other than as noted in my dictated progress note. Diagnosis: Problems: (1) Anxiety disorder, unspecified (2) Dementia, vascular, with depression (3) Dementia, vascular, with delusions (4) Dementia in Alzheimer's disease with depression (5) Dementia in Alzheimer's disease with delusions (6) Dementia of the Alzheimer's type with early onset with behavioral disturbance (7) Major neurocognitive disorder, due to vascular disease, with behavioral disturbance, mild NORMA AYALA MD Jun 15, 2020 08:34
[2020-06-15 10:14] VITALS: BP 156/79
--- NOTE | 2020-06-15 11:48 | NUR ---
ANASTACIA spoke with Ro from [facility] to provide update. SW agreeable to talk with Ro again early next week.
[2020-06-15 14:32] VITALS: BP 128/71
--- NOTE | 2020-06-15 20:05 | PN ---
DATE: 06/15/2020 ATTENDING PHYSICIAN: Dr. Salcedo. SUBJECTIVE: He remains quite confused. He is bedridden. He is not aware of place or time. OBJECTIVE FINDINGS: VITAL SIGNS: Blood pressure today is 156/79, pulse 77 and regular, temperature 96.8 degrees Fahrenheit, oxygen saturation 91% on room air. HEENT: Head is without trauma. Pupils are reactive. Sclerae nonicteric. Oropharynx is clear. No stridor. NECK: Supple. No stridor or bruits. LUNGS: Shallow respirations, but good breath sounds. CARDIOVASCULAR: Showed distant heart tones. No gallops. ABDOMEN: Soft, no guarding, no rebound tenderness. EXTREMITIES: Show trace edema. I examined the area of cellulitis in the volar surface of the right forearm, it is improving. NEUROLOGIC: Profoundly confused and bedridden. ASSESSMENT: A 80-year-old gentleman with: 1. Profound behavior issues and dementia. 2. Dehydration, rehydrated. 3. Chronic kidney disease, stage 3. 4. Paroxysmal atrial fibrillation. 5. Essential hypertension. 6. Barrera's esophagitis. PLAN: 1. Psychiatric meds has been stopped. 2. Meds have been simplified. 3. Diet as tolerated. 4. Follow up CBC and chemistry panel today. 5. I discussed the case with Dr. Leung, his physician, at his [facility]. He is still recommending transfer to a higher level of care such as [facility] or [facility]. We tried to attempt that yesterday, no beds were available. ABHISHEK CARLSON MD DR: VINCENT/jun JOB#: [id number] / [id number]
[2020-06-15 20:39] VITALS: BP 134/87
[2020-06-15] MEDS: VANCOMYCIN 1.25 GM in IV NORMAL SALINE 250ML 250 ML IV SCH (22:08)
--- NOTE | 2020-06-16 02:24 | NUR ---
Nursing note: Pt responds to name, unable to verbalize needs. Pt combative with brief changes and personal hygiene cares, continually fidgeting with mitts throughout shift. VSS
[2020-06-16] MEDS: LEVOTHYROXINE 25 MCG TABLET. PO SCH (05:00)
[2020-06-16 05:51] VITALS: BP 161/90
[2020-06-16] MEDS: LACTOBACILLUS RHAMNOSUS GG 1 CAPSULE. PO SCH ×2 (08:24→20:53)
[2020-06-16] MEDS: ASPIRIN CHEWABLE 81 MG TABLET. PO SCH (08:24)
[2020-06-16] MEDS: CALCIUM CARBONATE 500 MG TAB.CHEW PO SCH ×2 (08:24→20:53)
[2020-06-16 09:35] LABS: BASO # 0.1 x10^3/uL (0.0-0.2); BASO % 1 % (0-3); EOS # 0.2 x10^3/uL (0.0-0.7); EOS % 2 % (0-3); HEMATOCRIT 38.5 % (39.0-53.0); HEMOGLOBIN 12.5 g/dL (13.0-17.5); LYMPH # 1.8 x10^3/uL (1.0-4.8); LYMPH % 18 % (24-48); MEAN CORPUSCULAR HEMOGLOBIN 29 pg (25-35); MEAN CORPUSCULAR HGB CONC 33 g/dL (31-37); MEAN CORPUSCULAR VOLUME 90 fL (79-100); MONO # 0.8 x10^3/uL (0.0-1.1); MONO % 8 % (0-9); NEUT # 7.2 x10^3uL (1.8-7.7); NEUT % 72 % (31-73); PLATELET COUNT 379 x10^3/uL (140-400); RED BLOOD COUNT 4.29 x10^6/uL (4.30-5.70); RED CELL DISTRIBUTION WIDTH 13.5 % (11.5-14.5)
[2020-06-16 09:51] LABS: ALBUMIN 2.1 g/dL (3.4-5.0); ALBUMIN/GLOBULIN RATIO 0.4 (1.0-1.7); CALCIUM 9.1 mg/dL (8.5-10.1); CREATININE 1.3 mg/dL (0.7-1.3); GFR 53.3; POTASSIUM 3.4 mmol/L (3.5-5.1); TOTAL BILIRUBIN 0.3 mg/dL (0.2-1.0)
--- NOTE | 2020-06-16 10:36 | PN ---
DATE: 06/16/2020 ATTENDING PHYSICIAN: Dr. Salcedo. SUBJECTIVE: Profoundly confused, completely bedridden and not aware of person and time. OBJECTIVE FINDINGS: VITAL SIGNS: Blood pressure today is 161/90, pulse 84 and regular, temperature 98.3 degrees Fahrenheit, oxygen saturation is 97% on room air. HEENT: Head is without trauma. Pupils are reactive. Sclerae are nonicteric. Oropharynx is clear. No lesions. NECK: Supple. No stridor. LUNGS: Shallow respirations. CARDIOVASCULAR: Showed regular heart tones. No gallops. ABDOMEN: Soft, scaphoid, nontender. EXTREMITIES: Without edema. NEUROLOGIC: Profoundly confused. SKIN: Warm and dry. LABORATORY DATA: CBC and chemistry panel have been ordered and is pending at this time. ASSESSMENT: 1. A 80-year-old gentleman with profound dementia and behavioral issues. 2. Dehydration, rehydrated. 3. Chronic kidney disease stage 3. 4. Paroxysmal atrial fibrillation. 5. Essential hypertension. 6. Barrera's esophagitis. PLAN: 1. Follow up chemistries. 2. Diet as tolerated. 3. Meds simplified. 4. Unfortunately, the daughter's expectation is fairly unrealistic regarding his prognosis, we are ____. The facility from where he came from will not take him back and we have been trying to get him to a higher level of care without any success. ABHISHEK CARLSON MD DR: VINCENT/jun JOB#: [id number] / [id number]
[2020-06-16 12:23] VITALS: BP 142/85
[2020-06-16 19:54] VITALS: BP 149/84
[2020-06-16] MEDS: VANCOMYCIN 1.25 GM in IV NORMAL SALINE 250ML 250 ML IV SCH (21:56)
[2020-06-16 23:04] VITALS: BP 110/69
[2020-06-17 06:11] VITALS: BP 128/79
[2020-06-17] MEDS: LEVOTHYROXINE 25 MCG TABLET. PO SCH (06:39)
[2020-06-17] MEDS: CALCIUM CARBONATE 500 MG TAB.CHEW PO SCH ×2 (08:22→21:38)
[2020-06-17] MEDS: LACTOBACILLUS RHAMNOSUS GG 1 CAPSULE. PO SCH ×2 (08:22→21:38)
[2020-06-17] MEDS: ASPIRIN CHEWABLE 81 MG TABLET. PO SCH (08:22)
[2020-06-17 09:50] LABS: CALCIUM 9.1 mg/dL (8.5-10.1); CREATININE 1.3 mg/dL (0.7-1.3); POTASSIUM 3.8 mmol/L (3.5-5.1)
[2020-06-17 09:51] LABS: GFR 53.3
[2020-06-17 11:05] VITALS: BP 126/77
--- NOTE | 2020-06-17 11:30 | PN ---
DATE: 06/17/2020 ATTENDING PHYSICIAN: Dr. Salcedo. SUBJECTIVE: Profoundly confused and not too agitated. He still has the mittens on. OBJECTIVE FINDINGS: VITAL SIGNS: Blood pressure this morning is 128/79 mmHg, pulse is 71 and regular, temperature 98.2 degrees Fahrenheit, oxygen saturation are 96% on room air. HEENT: Head is without trauma. Pupils are reactive. Sclerae are nonicteric. The oropharynx remains clear. NECK: Supple, no bruits identified. LUNGS: Good breath sounds. CARDIOVASCULAR: Showed regular heart tones. No gallops. ABDOMEN: Soft. EXTREMITIES: Without edema. NEUROLOGIC FINDINGS: Profound confusion, bedridden, 24-hour care. SKIN: Warm and dry. PERTINENT LABORATORY STUDIES: From yesterday, the hemoglobin is stable at 12.5 g/dL with a white count of 10,000. Electrolytes showed a sodium of 141 mEq, potassium replaced to 3.8 mEq, creatinine stable at 1.3 mg/dL, nonfasting blood sugar 112. ASSESSMENT: 1. A 80-year-old gentleman with profound dementia and behavioral issues. 2. Dehydration, rehydrated. 3. Chronic kidney disease, improved. 4. Paroxysmal atrial fibrillation. 5. Essential hypertension. 6. Barrera's esophagitis. PLAN: 1. Continue meds as ordered. 2. Diet as tolerated. 3. We are working for placement. He is fairly stable and may be able to go [facility]. ABHISHEK CARLSON MD DR: VINCENT/jun JOB#: [id number] / [id number]
[2020-06-17] MEDS: VANCOMYCIN PER PHARMACY MC PRN (12:27)
[2020-06-17 18:52] VITALS: BP 143/77
[2020-06-17] MEDS: VANCOMYCIN 1.25 GM in IV NORMAL SALINE 250ML 250 ML IV SCH (21:38)
[2020-06-18 06:01] VITALS: BP 136/89
[2020-06-18] MEDS: LEVOTHYROXINE 25 MCG TABLET. PO SCH (06:06)
[2020-06-18 06:14] LABS: CALCIUM 9.2 mg/dL (8.5-10.1); CREATININE 1.5 mg/dL (0.7-1.3); GFR 45.1; POTASSIUM 3.7 mmol/L (3.5-5.1)
[2020-06-18] MEDS: LACTOBACILLUS RHAMNOSUS GG 1 CAPSULE. PO SCH ×2 (07:42→21:26)
[2020-06-18] MEDS: ASPIRIN CHEWABLE 81 MG TABLET. PO SCH (07:42)
[2020-06-18] MEDS: CALCIUM CARBONATE 500 MG TAB.CHEW PO SCH ×2 (08:25→21:26)
--- NOTE | 2020-06-18 10:11 | NUR ---
NSG NOTE; BEHAVIORS PT CONT TO BE CALM IN THE BED. MORE COOPERATIVE WITH CARES. NEEDS TO BE FED AND EATS WELL WITHOUT COUGH WEARS MITTS TO PREVENT HIM FROM PULLING OUT HIS IV SITE. CONTINUES TO BE INCONTINENT OF BOWEL AND BLADDER BUT CALMER WHEN WE CHANGE HIS BRIEF. DOES STARTLE EASILY AND RESPONDS BETTER WHEN TALKING TO HIM I ENTER THE ROOM
[2020-06-18 10:33] VITALS: BP 122/88
[2020-06-18] MEDS: IV DEXTROSE 5% 1,000 ML IV SCH (10:57)
--- NOTE | 2020-06-18 11:23 | PN ---
DATE: 06/18/2020 ATTENDING PHYSICIAN: Dr. Sacledo. SUBJECTIVE: The patient remains confused, nonverbal. He is delirious. He still has mittens on to avoid pulling IVs out. OBJECTIVE FINDINGS: VITAL SIGNS: Today, blood pressure is 122/88 mmHg, temperature 98.1 degrees Fahrenheit, pulse 94 and regular, oxygen saturation 100% on room air. HEENT: Head is without trauma. Pupils are reactive. Oropharynx clear. NECK: Supple. Mucous membranes are a bit dry. LUNGS: Shallow respirations. CARDIOVASCULAR: Showed regular heart tones. ABDOMEN: Soft. EXTREMITIES: Without edema. NEUROLOGIC: Focally intact, but the patient is profoundly demented. PERTINENT LABORATORY STUDIES: Reviewed today. His sodium is up to 148 mEq per liter, concomitant rise in chloride of 111, creatinine is slightly high at 1.5 mg/dL with a BUN of 31 mg/dL, potassium is 3.7 mEq. ASSESSMENT: 1. 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 2. Dehydration and free water deficit from inability to adequately take enough fluids. 3. Chronic kidney disease. 4. Paroxysmal atrial fibrillation. 5. Essential hypertension. 6. History of Barrera's esophagitis. 7. Hypernatremia due to free water deficit. PLAN: 1. Restart D5W today. 2. Serial chemistries. 3. Diet as tolerated. 4. He is not ready for discharge from the medical floor today. ABHISHEK CARLSON MD DR: VINCENT/jun JOB#: [id number] / [id number]
[2020-06-18 19:05] VITALS: BP 129/78
[2020-06-18 21:52] LABS: VANC TR 15.5 mcg/mL (10.0-20.0)
--- NOTE | 2020-06-18 21:52 | PDOC ---
Exam Note: Danielito Note: Please also refer to the separate dictated note~for this date of service dictated separately.~Patient seen individually. Discussed the patient with Nursing staff reviewed the chart.~Reviewed interim history and current functioning. Reviewed vital signs,~Labs/ Radiology~and current medications noted below. Continue current treatment with the changes noted in the dictated addendum note Assessment: Vital Signs/I&O: Vital Signs Date Time Temp Pulse Resp B/P (MAP) Pulse Ox O2 Delivery O2 Flow Rate FiO2 06/18/20 20:36 Room Air 06/18/20 19:05 97.7 97 16 129/78 (95) 91 I & O 06/17/20 06/17/20 06/18/20 15:00 23:00 07:00 Intake Total 690 ml 0 ml 400 ml Balance 690 ml 0 ml 400 ml Labs: Laboratory Tests Test 06/18/20 05:44 Sodium Level 148 mmol/L (136-145) H Potassium Level 3.7 mmol/L (3.5-5.1) Chloride Level 111 mmol/L (98-107) H Carbon Dioxide Level 26 mmol/L (21-32) Anion Gap 11 (6-14) Blood Urea Nitrogen 31 mg/dL (8-26) H Creatinine 1.5 mg/dL (0.7-1.3) H Estimated GFR (Cockcroft-Gault) 45.1 Glucose Level 88 mg/dL (70-99) Calcium Level 9.2 mg/dL (8.5-10.1) Current Medications: Meds: Current Medications Medications (Trade) Dose Ordered Sig/Abdifatah Route PRN Reason Start Time Stop Time Status Last Admin Dose Admin Dextrose 1,000 ml @ 75 mls/hr [id number] IV 06/18/20 11:00 06/18/20 10:57 I have reviewed the current psychotropics carefully including drug interactions. Risk benefit ratio favors no change other than as noted in my dictated progress note. Diagnosis: Problems: (1) Anxiety disorder, unspecified (2) Dementia, vascular, with depression (3) Dementia, vascular, with delusions (4) Dementia in Alzheimer's disease with depression (5) Dementia in Alzheimer's disease with delusions (6) Dementia of the Alzheimer's type with early onset with behavioral disturbance (7) Major neurocognitive disorder, due to vascular disease, with behavioral disturbance, mild NORMA AYALA MDb 22, 2021 21:52
[2020-06-18] MEDS: VANCOMYCIN 1.25 GM in IV NORMAL SALINE 250ML 250 ML IV SCH (22:03)
[2020-06-18] MEDS: VANCOMYCIN PER PHARMACY MC PRN (22:17)
--- NOTE | 2020-06-18 22:19 | NUR ---
Pharmacy Vancomycin Dosing Note S:Consulted to monitor and dose vancomycin started 06/12/20. O:SARAH BETH REYES is a 80 year old M with cellulitis. Height: 5 feet, 8 inches Weight: 77.1 kg [place] Body Weight: 68.40 Adjusted Body Weight: 71.88 Dosing Weight: Actual LABS: Last BUN: 31 Last Creatinine: 1.5 Creatinine Clearance: 38.6 Last WBC: 10.0 I/O: 480/- 4 VOIDS Drug Levels: Last Trough level: 15.5 on 06/18/20 at 2130 Last dose given 06/17 at 2200 Vancomycin Dosing: Loading Dose: 2000 mg x1 Dosing Weight: Actual Target Trough: 10-20 A: Based on: Patient's kidney function declined in last 24 hours. Collecting serial chemistries, will keep dose and interval the same for now and monitor kidney function. Follow-up trough in three days unless change in kidney function. P: 1. Continue Vancomycin 1250 mg IV q24h 2. Follow up Trough level on 06/21/20 at 2130 3. Pharmacy will continue to monitor, follow and adjust therapy as needed. SHANELLE KIM, 06/18/20 [id number]
[2020-06-19] MEDS: IV DEXTROSE 5% 1,000 ML IV SCH ×2 (01:59→13:40)
[2020-06-19 05:43] VITALS: BP 154/81
[2020-06-19] MEDS: LEVOTHYROXINE 25 MCG TABLET. PO SCH (06:17)
[2020-06-19 06:40] LABS: CALCIUM 8.8 mg/dL (8.5-10.1); CREATININE 1.3 mg/dL (0.7-1.3); GFR 53.3; POTASSIUM 3.2 mmol/L (3.5-5.1)
--- NOTE | 2020-06-19 08:24 | PDOC ---
Exam Note: Danielito Note: This note is a late entry for 06/16/2020 covers elements not covered in my initial note. Subjective: The patient was seen on rounds in the evening of 06/16/2020. Discussed with nursing staff, reviewed the chart. Overall the patient remains confused, withdrawn, gets agitated during cares but rest of the time is quite redirectable. He is much less sedated per nursing report. Review of Systems: The patient is unable to answer. He does have mittens on his hands, anxious, as I met with him. No CV, , pulmonary, eye, ENT system symptoms on review. Mental Status Exam: The patient is oriented perhaps to himself. Insight and judgment, recent and remote memory, attention and concentration, fund of knowledge is poor consistent with his diagnosis. Laboratory Data: Reviewed. Impression: Major neurocognitive disorder Alzheimer vascular with delusion, depression, behavioral disturbance. Anxiety disorder unspecified. Impulse control disorder unspecified. Plan: We will avoid all antipsychotics for now. No further changes for now. Assessment: Vital Signs/I&O: Vital Signs Date Time Temp Pulse Resp B/P (MAP) Pulse Ox O2 Delivery O2 Flow Rate FiO2 06/19/20 05:43 97.6 72 20 154/81 (105) 92 Room Air I & O 06/18/20 06/18/20 06/19/20 14:59 22:59 06:59 Intake Total 480 ml 1300 ml Balance 480 ml 1300 ml Labs: Laboratory Tests Test 06/18/20 21:30 06/19/20 05:52 Vancomycin Level Trough 15.5 mcg/mL (10.0-20.0) Vancomycin Last Dose Date 06/17/20 Vancomycin Last Dose Time 2200 Sodium Level 145 mmol/L (136-145) Potassium Level 3.2 mmol/L (3.5-5.1) L Chloride Level 109 mmol/L (98-107) H Carbon Dioxide Level 26 mmol/L (21-32) Anion Gap 10 (6-14) Blood Urea Nitrogen 30 mg/dL (8-26) H Creatinine 1.3 mg/dL (0.7-1.3) Estimated GFR (Cockcroft-Gault) 53.3 Glucose Level 86 mg/dL (70-99) Calcium Level 8.8 mg/dL (8.5-10.1) Current Medications: Meds: Laboratory Tests Test 06/18/20 21:30 06/19/20 05:52 Vancomycin Level Trough 15.5 mcg/mL Vancomycin Last Dose Date 06/17/20 Vancomycin Last Dose Time 2200 Sodium Level 145 mmol/L Potassium Level 3.2 mmol/L Chloride Level 109 mmol/L Carbon Dioxide Level 26 mmol/L Anion Gap 10 Blood Urea Nitrogen 30 mg/dL Creatinine 1.3 mg/dL Estimated GFR (Cockcroft-Gault) 53.3 Glucose Level 86 mg/dL Calcium Level 8.8 mg/dL Current Medications Medications (Trade) Dose Ordered Sig/Abdifatah Route PRN Reason Start Time Stop Time Status Last Admin Dose Admin Vancomycin HCl (Vanco Per Pharmacy) 1 each PRN DAILY PRN MC SEE COMMENTS 06/12/20 18:00 06/18/20 22:17 Vancomycin HCl 2 gm/Sodium Chloride 500 ml @ 250 mls/hr 1X ONCE IV 06/12/20 19:00 06/12/20 20:59 DC 06/12/20 22:00 Vancomycin HCl 1.25 gm/Sodium Chloride 250 ml @ 167 mls/hr Q24H IV 06/13/20 22:00 06/18/20 22:03 Vancomycin HCl (Vancomycin Trough Level) 1 each 1X ONCE MC 06/14/20 21:30 06/14/20 21:31 DC Acetaminophen (Tylenol) 500 mg PRN Q6HRS PRN PO pain or fever 06/13/20 05:15 06/16/20 20:53 Aspirin (Aspirin Chewable) 81 mg DAILY PO 06/13/20 09:00 06/18/20 07:42 Bisacodyl (Dulcolax Tab) 5 mg PRN DAILY PRN PO CONSTIPATION 06/13/20 05:15 Calcium Carbonate/ Glycine (Tums) 500 mg BID PO 06/13/20 09:00 06/18/20 21:26 Vitamin D (Vitamin D3) 50,000 unit QWE PO 06/13/20 16:00 06/14/20 09:08 DC Levothyroxine Sodium (Synthroid) 25 mcg DAILY06 PO 06/13/20 06:00 06/19/20 06:17 Al Hydroxide/Mg Hydroxide (Mylanta Plus Xs) 15 ml PRN AFTMEALHC PRN PO DYSPEPSIA 06/13/20 05:15 Tizanidine HCl (Zanaflex) 4 mg PRN Q8HRS PRN PO MUSCLE SPASMS 06/13/20 05:15 06/14/20 09:08 DC Atorvastatin Calcium (Lipitor) 40 mg QHS PO 06/13/20 21:00 06/14/20 09:08 DC 06/13/20 21:45 Magnesium Hydroxide (Milk Of Magnesia) 2,400 mg PRN QHS PRN PO CONSTIPATION 06/13/20 05:30 06/14/20 09:08 DC Lactobacillus Rhamnosus (Culturelle) 1 cap BID PO 06/14/20 09:00 06/18/20 21:26 Vancomycin HCl (Vancomycin Trough Level) 1 each 1X ONCE MC 06/18/20 21:30 06/18/20 21:31 DC 06/18/20 21:30 Dextrose 1,000 ml @ 75 mls/hr [id number] IV 06/18/20 11:00 06/19/20 01:59 Vancomycin HCl (Vancomycin Trough Level) 1 each 1X ONCE 06/21/20 21:30 06/21/20 21:31 Current Medications Medications (Trade) Dose Ordered Sig/Abdifatah Route PRN Reason Start Time Stop Time Status Last Admin Dose Admin Vancomycin HCl (Vancomycin Trough Level) 1 each 1X ONCE 06/18/20 21:30 06/18/20 21:31 DC 06/18/20 21:30 Dextrose 1,000 ml @ 75 mls/hr [id number] IV 06/18/20 11:00 06/19/20 01:59 I have reviewed the current psychotropics carefully including drug interactions. Risk benefit ratio favors no change other than as noted in my dictated progress note. Diagnosis: Problems: (1) Anxiety disorder, unspecified (2) Dementia, vascular, with depression (3) Dementia, vascular, with delusions (4) Dementia in Alzheimer's disease with depression (5) Dementia in Alzheimer's disease with delusions (6) Dementia of the Alzheimer's type with early onset with behavioral disturbance (7) Major neurocognitive disorder, due to vascular disease, with behavioral disturbance, mild NORMA AYALA MD Jun 19, 2020 08:24
[2020-06-19] MEDS: ASPIRIN CHEWABLE 81 MG TABLET. PO SCH (08:43)
[2020-06-19] MEDS: LACTOBACILLUS RHAMNOSUS GG 1 CAPSULE. PO SCH ×2 (08:43→22:06)
[2020-06-19] MEDS: CALCIUM CARBONATE 500 MG TAB.CHEW PO SCH ×2 (08:43→22:06)
--- NOTE | 2020-06-19 10:55 | NUR ---
PATIENT IS AWAKE IN A BED UPON ASSESSMENT , CALM AND COOPERATIVE WITH ADLS , MEDS CRUSHED IN PUDDING, COMPLIANT WITH MEDS. PATIENT REQUIRES ASSIST WITH FEEDING, PATIENT IS CONFUSED, STAFF INFORM AND INSTRUCT PATIENT ABOUT PROCEDURES AND CARE NEEDED TO BE PERFORMED.
--- NOTE | 2020-06-19 12:43 | PN ---
DATE: 06/19/2020 ATTENDING PHYSICIAN: Dr. Salcedo. SUBJECTIVE: The patient is confused, but he is cooperative this morning. With nurse's aide, he ate all of his lunch. OBJECTIVE FINDINGS: VITAL SIGNS: Blood pressure today is 154/81, pulse 72 and regular. He is afebrile. Oxygen saturation 92% on room air. HEENT: Head is without trauma. Pupils are reactive. Sclerae nonicteric. Oropharynx is clear. NECK: Supple. LUNGS: Good breath sounds. CARDIOVASCULAR: Showed regular heart tones. No gallops. ABDOMEN: Soft. EXTREMITIES: Without edema. NEUROLOGIC: Pleasantly confused, requires total care. LABORATORY DATA: Sodium is down to 145 mEq per liter from 148, creatinine is improved from 1.5 to 1.3, BUN is 30 and potassium 3.2 mEq. ASSESSMENT: 1. 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 2. Dehydration and free water deficit, improved. 3. Chronic kidney disease. 4. Paroxysmal atrial fibrillation. 5. Essential hypertension. 6. Hypernatremia. PLAN: 1. Continue D5W. 2. Serial chemistry. 3. Diet as tolerated. 4. Await placement. ABHISHEK CARLSON MD DR: VINCENT/jun JOB#: [id number] / [id number]
[2020-06-19 14:43] VITALS: BP 127/72
[2020-06-19 19:35] VITALS: BP 130/78
[2020-06-19] MEDS: VANCOMYCIN 1.25 GM in IV NORMAL SALINE 250ML 250 ML IV SCH (22:06)
[2020-06-20 05:25] VITALS: BP 125/68
[2020-06-20] MEDS: LEVOTHYROXINE 25 MCG TABLET. PO SCH (06:00)
[2020-06-20 06:32] LABS: CREATININE 1.3 mg/dL (0.7-1.3); GFR 53.3; POTASSIUM 3.5 mmol/L (3.5-5.1)
[2020-06-20] MEDS: ASPIRIN CHEWABLE 81 MG TABLET. PO SCH (07:49)
[2020-06-20] MEDS: LACTOBACILLUS RHAMNOSUS GG 1 CAPSULE. PO SCH (07:49)
[2020-06-20] MEDS: CALCIUM CARBONATE 500 MG TAB.CHEW PO SCH (07:49)
--- NOTE | 2020-06-20 08:37 | PDOC ---
Exam Note: Danielito Note: This note is a late entry for 06/18/2020 covers elements not covered in my initial note. Subjective: The patient was seen on rounds in the evening of 06/18/2020. Discussed with nursing staff, reviewed the chart. Per nursing report, the patient remains confused, gets a little restless, agitated during cares but not otherwise. He has been a little more awake today. He is lying in bed, mitts in place, somewhat rambling in his speech, disorganized. Review of Systems: No CV, , pulmonary, eye, ENT system symptoms on review. Mental Status Exam: The patient is oriented to himself. Insight and judgment, recent and remote memory, attention and concentration, fund of knowledge is poor consistent with his diagnosis. Laboratory Data: Reviewed. Impression: Major neurocognitive disorder Alzheimer vascular with delusion, depression, behavioral disturbance. Anxiety disorder unspecified. Impulse control disorder unspecified. Plan: We will avoid psychotropics for now since they cause fairly significant sedation in the past. If agitation resurfaces, we will have to reconsider this. Assessment: Vital Signs/I&O: Vital Signs Date Time Temp Pulse Resp B/P (MAP) Pulse Ox O2 Delivery O2 Flow Rate FiO2 06/20/20 05:25 98.3 75 18 125/68 (87) 94 06/19/20 19:58 Room Air I & O 06/19/20 06/19/20 06/20/20 15:00 23:00 07:00 Intake Total 120 ml 120 ml 250 ml Balance 120 ml 120 ml 250 ml Labs: Laboratory Tests Test 06/19/20 08:46 06/19/20 08:56 06/20/20 05:49 SARS-CoV-2 Antigen (Rapid) Negative (NEGATIVE) Coronavirus (PCR) Not detected (Not Detected) Sodium Level 142 mmol/L (136-145) Potassium Level 3.5 mmol/L (3.5-5.1) Chloride Level 106 mmol/L (98-107) Carbon Dioxide Level 27 mmol/L (21-32) Anion Gap 9 (6-14) Blood Urea Nitrogen 25 mg/dL (8-26) Creatinine 1.3 mg/dL (0.7-1.3) Estimated GFR (Cockcroft-Gault) 53.3 Glucose Level 89 mg/dL (70-99) Calcium Level 9.0 mg/dL (8.5-10.1) Current Medications: Meds: Laboratory Tests Test 06/19/20 08:46 06/19/20 08:56 06/20/20 05:49 SARS-CoV-2 Antigen (Rapid) Negative Coronavirus (PCR) Not detected Sodium Level 142 mmol/L Potassium Level 3.5 mmol/L Chloride Level 106 mmol/L Carbon Dioxide Level 27 mmol/L Anion Gap 9 Blood Urea Nitrogen 25 mg/dL Creatinine 1.3 mg/dL Estimated GFR (Cockcroft-Gault) 53.3 Glucose Level 89 mg/dL Calcium Level 9.0 mg/dL Current Medications Medications (Trade) Dose Ordered Sig/Abdifatah Route PRN Reason Start Time Stop Time Status Last Admin Dose Admin Vancomycin HCl (Vanco Per Pharmacy) 1 each PRN DAILY PRN MC SEE COMMENTS 06/12/20 18:00 06/18/20 22:17 Vancomycin HCl 2 gm/Sodium Chloride 500 ml @ 250 mls/hr 1X ONCE IV 06/12/20 19:00 06/12/20 20:59 DC 06/12/20 22:00 Vancomycin HCl 1.25 gm/Sodium Chloride 250 ml @ 167 mls/hr Q24H IV 06/13/20 22:00 06/19/20 22:06 Vancomycin HCl (Vancomycin Trough Level) 1 each 1X ONCE MC 06/14/20 21:30 06/14/20 21:31 DC Acetaminophen (Tylenol) 500 mg PRN Q6HRS PRN PO pain or fever 06/13/20 05:15 06/16/20 20:53 Aspirin (Aspirin Chewable) 81 mg DAILY PO 06/13/20 09:00 06/20/20 07:49 Bisacodyl (Dulcolax Tab) 5 mg PRN DAILY PRN PO CONSTIPATION 06/13/20 05:15 Calcium Carbonate/ Glycine (Tums) 500 mg BID PO 06/13/20 09:00 06/20/20 07:49 Vitamin D (Vitamin D3) 50,000 unit QWE PO 06/13/20 16:00 06/14/20 09:08 DC Levothyroxine Sodium (Synthroid) 25 mcg DAILY06 PO 06/13/20 06:00 06/19/20 06:17 Al Hydroxide/Mg Hydroxide (Mylanta Plus Xs) 15 ml PRN AFTMEALHC PRN PO DYSPEPSIA 06/13/20 05:15 Tizanidine HCl (Zanaflex) 4 mg PRN Q8HRS PRN PO MUSCLE SPASMS 06/13/20 05:15 06/14/20 09:08 DC Atorvastatin Calcium (Lipitor) 40 mg QHS PO 06/13/20 21:00 06/14/20 09:08 DC 06/13/20 21:45 Magnesium Hydroxide (Milk Of Magnesia) 2,400 mg PRN QHS PRN PO CONSTIPATION 06/13/20 05:30 06/14/20 09:08 DC Lactobacillus Rhamnosus (Culturelle) 1 cap BID PO 06/14/20 09:00 06/20/20 07:49 Vancomycin HCl (Vancomycin Trough Level) 1 each 1X ONCE MC 06/18/20 21:30 06/18/20 21:31 DC 06/18/20 21:30 Dextrose 1,000 ml @ 75 mls/hr [id number] IV 06/18/20 11:00 06/19/20 13:40 Vancomycin HCl (Vancomycin Trough Level) 1 each 1X ONCE MC 06/21/20 21:30 06/21/20 21:31 I have reviewed the current psychotropics carefully including drug interactions. Risk benefit ratio favors no change other than as noted in my dictated progress note. Diagnosis: Problems: (1) Anxiety disorder, unspecified (2) Dementia, vascular, with depression (3) Dementia, vascular, with delusions (4) Dementia in Alzheimer's disease with depression (5) Dementia in Alzheimer's disease with delusions (6) Dementia of the Alzheimer's type with early onset with behavioral disturbance (7) Major neurocognitive disorder, due to vascular disease, with behavioral disturbance, mild NROMA AYALA MD Jun 20, 2020 08:37
[2020-06-20 10:44] VITALS: BP 152/93
--- NOTE | 2020-06-20 12:34 | DISCH ---
DISCHARGE ORDERS DISCHARGE DATE: Jun 20, 2020 FINAL DIAGNOSIS major neurocognitive disorder Alzheimer Vascular right upper extremity cellulitis hypernatremia CONDITION AT DISCHARGE: Stable Code Status: DNR/DNI SNF STAY <30 DAYS: Yes POST DISCHARGE ORDERS: ACTIVITY ORDERS: Activity as tolerated WEIGHT BEARING STATUS: No restrictions, As tolerated DIET AFTER DISCHARGE: WOUND/INCISION CARE: Change dressing CHECKS AFTER DISCHARGE: CHECKS AFTER DISCHARGE: Check blood press - daily, Check your Temp as needed TREATMENT/EQUIPMENT ORDERS: ADAPTIVE EQUIPMENT NEEDED: None DISCHARGE MEDICATIONS: Home Meds Reported Medications Levothyroxine Sodium (LEVOTHYROXINE SODIUM) 25 Mcg Tablet, 25 MCG PO DAILYAC for THYROID SUPPLEMENT, #30 TAB 0 Refills 06/12/20 Cholecalciferol (Vitamin D3) (D3-50) 50,000 Unit Capsule, 81218 UNIT PO QWE for supplement, CAP 06/12/20 Methyl Salicylate/Menthol (Analgesic [place]) 28 Gm Oint...g., 1 BINH TP PRN QID PRN for MUSCLE PAIN, MISC 05/28/20 Magnesium Hydroxide (MILK OF MAGNESIA) 2,400 Mg/10 Ml Oral.susp, 2400 MG PO PRN QHS PRN for CONSTIPATION, LIQUID 05/28/20 Mag Hydrox/Aluminum Hyd/Simeth (Mylanta Maximum Strength Liq) 355 Ml Oral.susp, 15 ML PO PRN AFTMEALHC PRN for DYSPEPSIA, LIQUID 05/28/20 Atorvastatin Calcium (ATORVASTATIN CALCIUM) 40 Mg Tablet, 40 MG PO QHS for hyperlipidemia, #30 TAB 5 Refills 05/26/20 Acetaminophen (ACETAMINOPHEN) 500 Mg Tablet, 1 TAB PO PRN Q6HRS PRN for pain or fever for 15 Days, #60 TAB 0 Refills 05/26/20 Bisacodyl (BISACODYL) 5 Mg Tablet.dr, 5 MG PO PRN DAILY PRN for CONSTIPATION, TAB 0 Refills 05/26/20 Calcium Carbonate (TUMS) 200 Mg Tab.chew, 500 MG PO BID for antiacid, TAB.CHEW 05/26/20 Aspirin (ASPIRIN) 81 Mg Tab.chew, 81 MG PO DAILY for blood thinner, TAB 05/26/20 Discontinued Reported Medications [Dextrose5% in water] No Conflict Check, 100 ML IV CONT for supplement 06/12/20 Olanzapine (ZYPREXA ZYDIS) 5 Mg Tab.rapdis, 5 MG PO PRN Q2HRS PRN for PSYCHOSIS, TAB 05/28/20 Tizanidine Hcl (TIZANIDINE HCL) 4 Mg Tablet, 4 MG PO PRN Q8HRS PRN for MUSCLE SPASMS, TAB 05/26/20 GIULIA LIMON MD Jun 20, 2020 12:34
--- NOTE | 2020-06-20 13:17 | DS ---
DATE OF DISCHARGE: HOSPITAL COURSE: The patient is a 80-year-old male patient who was transferred from [facility] as he has developed right upper extremity cellulitis. He was also extremely dehydrated and was extremely hyperkalemic and he was upstairs and was continued on D5W. He was continued on IV vancomycin after he received 1 injection of intramuscular Rocephin and apparently multiple attempts have been made to transfer him to [facility] and other inpatient psychiatric facilities without any luck and a decision was made to discharge him back to [facility] to continue the rest of the process of rehabilitation. PHYSICAL EXAMINATION: GENERAL: When I saw him today, he looked well and was clearly in no apparent respiratory distress. No pallor, jaundice, cyanosis or thyromegaly. No jugular venous distension. No limb edema. VITAL SIGNS: His heart rate was 99, blood pressure was 152/93, temperature was 97.8, respiratory rate was 16, and oxygen saturation was 93% on room air. HEAD, EYES, EARS, NOSE AND THROAT: Showed normocephalic, atraumatic. NECK: Supple. HEART: Normal first and second heart sounds with no gallop, rub or murmur. CHEST: Showed central trachea, equal bilateral chest expansion, air entry, vesicular sounds. No crepitation or rhonchi. ABDOMEN: Scaphoid, soft, nontender. NEUROLOGIC: He is demented, but without any obvious lateralizing sign. Apparently, the patient is unable to walk. He was in mittens in both hands as he attempts multiple times to pull his IV line that is needed for IV fluid for rehydration as well as antibiotic, but will be discontinued. His intake was 1718, no output was recorded. LABORATORY DATA: Most recent lab work showed a white cell count of 10,000, hemoglobin 12.5, hematocrit 38.5, MCV 90 and platelet count 379,000. His chemistry showed a serum sodium 142, potassium 3.5, chloride 106, bicarbonate 27, anion gap of 9, BUN 25, creatinine 1.3, estimated GFR was 53 mL per minute. His glucose was 89, calcium was 9. DISCHARGE MEDICATIONS: The patient was discharged back to [facility] to continue the process of rehabilitation. He should continue on aspirin 81 mg once a day, levothyroxine 25 mcg once a day, bisacodyl 10 mg once a day, acetaminophen 500 mg every 6 hours. FINAL DISCHARGE DIAGNOSES: 1. Major neurocognitive disorder, Alzheimer, vascular with delusion, depression, behavioral disturbances. 2. Anxiety disorder, unspecified. 3. Impulse control disorder, unspecified. 4. Right upper extremity cellulitis. The patient received 1 week worth of IV vancomycin and all the redness has completely disappeared. The patient is afebrile, hemodynamically stable. Other medical problems include dehydration and free water deficit, resolved. His serum sodium is down to 141. 5. Chronic kidney disease. 6. Paroxysmal atrial fibrillation. 7. Essential hypertension. 8. Hypernatremia, resolved. GIULIA LIMON MD DR: CHIOMA/jun JOB#: [id number] / [id number]
--- NOTE | 2020-06-20 15:10 | NUR ---
NSG NOTE; DISCHARGE TO SNF REPORT CALLED TO [facility] PAPER COPY OF CHART INCLUDING MED REC SENT WITH PT DISCHARGED AT 1400 VIA CART ACCOMP BY EMS PERSONNEL FOR RETURN TO [facility] IN THE [facility]
== END 2020-06-20 14:00 | DRG 602 ==
LOC: 1 SOUTH 15:00
PROVIDERS: ADMIT Internal Medicine; ATTEND Internal Medicine
DX: L03.113 Cellulitis of right upper limb (principal); E43 Unspecified severe protein-calorie malnutrition; E87.0 Hyperosmolality and hypernatremia; F01.51 Vascular dementia, unspecified severity, with behavioral disturbance; F02.81 Dementia in other diseases classified elsewhere, unspecified severity, with behavioral disturbance; E78.5 Hyperlipidemia, unspecified; E86.0 Dehydration; E87.5 Hyperkalemia; F32.9 Major depressive disorder, single episode, unspecified; F41.9 Anxiety disorder, unspecified; F63.9 Impulse disorder, unspecified; G30.9 Alzheimer's disease, unspecified; G47.00 Insomnia, unspecified; G89.4 Chronic pain syndrome; I12.9 Hypertensive chronic kidney disease with stage 1 through stage 4 chronic kidney disease, or unspecified chronic kidney disease; I48.0 Paroxysmal atrial fibrillation; N18.30 Chronic kidney disease, stage 3 unspecified; Z74.01 Bed confinement status; Z80.1 Family history of malignant neoplasm of trachea, bronchus and lung; Z85.828 Personal history of other malignant neoplasm of skin; K20.90 Esophagitis, unspecified without bleeding; Z68.25 Body mass index [BMI] 25.0-25.9, adult; Z20.822 Contact with and (suspected) exposure to COVID-19
CPT/HCPCS: 36415; 80048; 80053; 80202; 85025; 87426; J3370; J7040; J7050; U0003